=== PATIENT | female | born 1950 | race Caucasian/White ===

== ENCOUNTER 2019-04-22 17:04 | Emergency (ER) | payer OTHER ==
--- OUTSIDE RECORDS SUMMARY | 2019-04-22 17:06 | XMS REPORT ---
:1950 Author Organization eClinicalWorks Care Team Providers Name Role Phone Terence Alston Provider Role Unavailable Allergies No Known Allergies Problems Problem Type Condition Code Onset Dates Condition Status Problem Allergic rhinitis J30.9 Active Problem Depression with anxiety F41.8 Active Problem Obstructive sleep apnea G47.33 Active Problem Urinary incontinence, post-void N39.43 Active dribbling Assessment Obstructive sleep apnea G47.33 Active Problem Varicose veins I86.8 Active Assessment GERD (gastroesophageal reflux K21.9 Active disease) Assessment Fibromyalgia M79.7 Active Problem Bladder spasm N32.89 Active Problem Vertebral compression fracture M48.50XA Active Problem Chronic obstructive pulmon disease J44.0 Active w acute lower resp infct Problem Fibrocystic breast changes N60.19 Active Problem Unspecified asthma with (acute) J45.901 Active exacerbation Assessment Chronic obstructive pulmon disease J44.0 Active w acute lower resp infct Assessment Depression with anxiety F41.8 Active Assessment Mixed hyperlipidemia E78.2 Active Problem Fibromyalgia M79.7 Active Problem Murmur R01.1 Active Problem Shingles B02.9 Active Problem Osteoporosis M81.0 Active Problem Mixed hyperlipidemia E78.2 Active Problem GERD (gastroesophageal reflux K21.9 Active disease) Medications Medication Code Code Instructions Start End Status Dosage System Date Date Symbicort [facility] 73451052335 160-4.5 MCG/ACT May Inactive TAKE 2 11, PUFFS BY 2018 MOUTH TWICE A DAY Breo Ellipta ND 54734000354 100-25 MCG/INH Active 1 puff Inhalation Once a day Montelukast ND 44825328853 10 MG Orally Active 1 tablet in Sodium Once a day the evening Omeprazole ND 21578633749 40 MG Orally Active 1 capsule Once a day Estrace ND 70386943326 0.1 MG/GM Active as directed Vaginal twice weekly Simvastatin ND 52790714432 10 MG Orally May 11, Active 1 tablet in Once a day 2018 the evening Tramadol HCl ND 16090245104 50 MG Orally Active 1 tablet as every 6 hrs needed Gabapentin [facility] 88621201181 100 MG Active TAKE ONE CAPSULE BY MOUTH 3 TIMES A DAY Gabapentin [facility] 56786400987 100 MG Orally Active 1 capsule Three times a day Vistaril [facility] 27089668059 25 MG Active TAKE ONE CAPSULE BY MOUTH 4 TIMES A DAY NEEDED FOR ITCHING Myrbetriq ND 28372020191 25 mg Orally March 14, Sep 10, Active 1 tablet Once a day 2017 2017 Fish Oil [facility] 19121316448 1200 MG Orally Active 1 capsule Once a day Multi Vitamin [facility] 33419018290 - Orally Once a Active 1 tablet day Vistaril [facility] 63187691766 25 MG Active TAKE ONE CAPSULE BY MOUTH 4 TIMES A DAY NEEDED FOR ITCHING ProAir HFA [facility] 29244326648 108 (90 Base) Active 2 puffs as MCG/ACT needed Inhalation every 6 hrs PredniSONE [facility] 35534505448 10 MG Orally Active 1 tablet Once a day Lipitor [facility] 17859292888 20 MG Active TAKE 1 TABLET BY MOUTH EVERY DAY Lipitor [facility] 50593176571 20 MG Orally Inactive 1 tablet Once a day Fluoxetine HCl [facility] 42288314419 20 MG Orally Active 1 capsule Once a day in the morning Melatonin [facility] 64353275762 5 MG Orally Active 1 tablet at Once a day bedtime as needed with food Results No Known Results Summary Purpose eClinicalWorks Submission
--- OUTSIDE RECORDS SUMMARY | 2019-04-22 17:06 | XMS REPORT ---
:1950 Author Organization eClinicalWorks Care Team Providers Name Role Phone Aidee Danette Provider Role Unavailable Allergies, Adverse Reactions, Alerts Substance Reaction Event Type penicillin Info Not Available Drug Allergy codeine Info Not Available Drug Allergy NSAIDS Info Not Available Drug Allergy Sulfa Info Not Available Drug Allergy Prilosec Info Not Available Drug Allergy Lyrica Info Not Available Drug Allergy Problems Problem Type Condition Code Onset Dates Condition Status Problem Allergic rhinitis J30.9 Active Problem Depression with anxiety F41.8 Active Problem Obstructive sleep apnea G47.33 Active Problem Urinary incontinence, post-void N39.43 Active dribbling Problem Varicose veins I86.8 Active Problem Bladder spasm N32.89 Active Problem Vertebral compression fracture M48.50XA Active Problem Chronic obstructive pulmon disease J44.0 Active w acute lower resp infct Problem Fibrocystic breast changes N60.19 Active Problem Unspecified asthma with (acute) J45.901 Active exacerbation Assessment Urinary incontinence, post-void N39.43 Active dribbling Assessment Bladder spasm N32.89 Active Problem Fibromyalgia M79.7 Active Problem Murmur R01.1 Active Problem Shingles B02.9 Active Problem Osteoporosis M81.0 Active Problem Mixed hyperlipidemia E78.2 Active Problem GERD (gastroesophageal reflux K21.9 Active disease) Medications Medication Code Code Instructions Start End Status Dosage System Date Date ProAir HFA [facility] 62543053987 108 (90 Base) Active 2 puffs as MCG/ACT needed Inhalation every 6 hrs Vistaril [facility] 20605004687 25 MG Active TAKE ONE CAPSULE BY MOUTH 4 TIMES A DAY NEEDED FOR ITCHING Melatonin [facility] 75169981947 5 MG Orally Active 1 tablet at Once a day bedtime as needed with food Montelukast [facility] 45590044377 10 MG Orally Active 1 tablet in Sodium Once a day the evening Multi Vitamin [facility] 57438161937 - Orally Once a Active 1 tablet day Fluoxetine HCl [facility] 89240706077 20 MG Orally Active 1 capsule Once a day in the morning Estrace [facility] 55482480832 0.1 MG/GM January Active as directed Vaginal twice 2017 weekly Fish Oil [facility] 57554926258 1200 MG Orally Active 1 capsule Once a day Gabapentin [facility] 48096890407 100 MG Orally Active 1 capsule Three times a day Omeprazole [facility] 99725472937 40 MG Orally Active 1 capsule Once a day PredniSONE [facility] 49709604893 10 MG Orally Active 1 tablet Once a day Tramadol HCl [facility] 43012055643 50 MG Orally Active 1 tablet as every 6 hrs needed Symbicort [facility] 96736422139 160-4.5 MCG/ACT Active TAKE 2 PUFFS BY MOUTH TWICE A DAY Lipitor [facility] 61949232337 20 MG Orally Active 1 tablet Once a day Breo Ellipta [facility] 12900727554 100-25 MCG/INH Active 1 puff Inhalation Once a day Results Name Result Date Reference Range Unit Abnormality Flag URINALYSIS AUTO W/O SCOPE (40164) ----ASHKAN neg [id number] ----NIT neg [id number] ----PROTEIN neg [id number] ----pH 6.5 20180209 ----GLUCOSE neg [id number] ----KETONES neg [id number] ----SPECIFIC GRAVITY 1.010 [id number] ----BLO neg [id number] PVR ----PVR 57 [id number] Summary Purpose eClinicalWorks Submission
--- OUTSIDE RECORDS SUMMARY | 2019-04-22 17:06 | XMS REPORT ---
:1950 Author Organization eClinicalWorks Care Team Providers Name Role Phone Terence Alston Provider Role Unavailable Allergies, Adverse Reactions, Alerts Substance Reaction Event Type Ciprofloxacin Info Not Available Drug Allergy Bactrim DS Info Not Available Drug Allergy Problems Problem Type Condition Code Onset Dates Condition Status Problem Chronic obstructive pulmon disease J44.0 Active w acute lower resp infct Problem Unspecified asthma with (acute) J45.901 Active exacerbation Problem Vertebral compression fracture M48.50XA Active Problem GERD (gastroesophageal reflux K21.9 Active disease) Problem Osteoporosis M81.0 Active Problem Allergic rhinitis J30.9 Active Problem Varicose veins I86.8 Active Problem Fibrocystic breast changes N60.19 Active Problem Murmur R01.1 Active Problem Fibromyalgia M79.7 Active Assessment Obstructive sleep apnea G47.33 Active Assessment Depression with anxiety F41.8 Active Assessment Fibromyalgia M79.7 Active Assessment GERD (gastroesophageal reflux K21.9 Active disease) Problem Shingles B02.9 Active Problem Mixed hyperlipidemia E78.2 Active Assessment Mixed hyperlipidemia E78.2 Active Problem Obstructive sleep apnea G47.33 Active Assessment Chronic obstructive pulmon disease J44.0 Active w acute lower resp infct Problem Depression with anxiety F41.8 Active Medications Medication Code Code Instructions Start End Status Dosage System Date Date ProAir HFA [facility] 29612497591 108 (90 Base) Active 2 puffs as MCG/ACT needed Inhalation every 6 hrs Vistaril [facility] 97510737468 25 MG Active TAKE ONE CAPSULE BY MOUTH 4 TIMES A DAY NEEDED FOR ITCHING Omeprazole [facility] 25347540541 40 MG Orally Active 1 capsule Once a day Tramadol HCl [facility] 04514552915 50 MG Orally Active 1 tablet every 6 hrs as needed Gabapentin [facility] 12739335857 100 MG Orally Active 1 capsule Three times a day Lipitor [facility] 47046052291 20 MG Orally Active 1 tablet Once a day Fluoxetine HCl [facility] 97464758121 20 MG Orally Active 1 capsule Once a day in the morning Symbicort [facility] 91310558896 160-4.5 MCG/ACT Active TAKE 2 PUFFS BY MOUTH TWICE A DAY Montelukast [facility] 49993209383 10 MG Orally Active 1 tablet Sodium Once a day in the evening Results No Known Results Summary Purpose eClinicalWorks Submission
--- OUTSIDE RECORDS SUMMARY | 2019-04-22 17:06 | XMS REPORT ---
[...] asthma with (acute) J45.901 Active exacerbation Assessment Bladder spasm N32.89 Active Assessment Urinary incontinence, post-void N39.43 Active dribbling Problem Fibromyalgia M79.7 Active Problem Murmur R01.1 Active Problem Shingles B02.9 Active Problem Osteoporosis M81.0 Active Problem Mixed hyperlipidemia E78.2 Active Problem GERD (gastroesophageal reflux K21.9 Active disease) Medications Medication Code Code Instructions Start End Status Dosage System Date Date Estrace [facility] 55647353527 0.1 MG/GM Active as directed Vaginal twice weekly Fluoxetine HCl ND 31224542233 20 MG Orally Active 1 capsule Once a day in the morning Vistaril ND 56042482340 25 MG Active TAKE ONE CAPSULE BY MOUTH 4 TIMES A DAY NEEDED FOR ITCHING PredniSONE ND 97358536543 10 MG Orally Active 1 tablet Once a day Lipitor ND 53891533160 20 MG Active TAKE 1 TABLET BY MOUTH EVERY DAY Symbicort [facility] 28830623431 160-4.5 MCG/ACT Active TAKE 2 PUFFS BY MOUTH TWICE A DAY Melatonin [facility] 26867719573 5 MG Orally Active 1 tablet at Once a day bedtime as needed with food Gabapentin [facility] 37815710010 100 MG Active TAKE ONE CAPSULE BY MOUTH 3 TIMES A DAY Breo Ellipta [facility] 51533622667 100-25 MCG/INH Active 1 puff Inhalation Once a day Montelukast ND 20172372622 10 MG Orally Active 1 tablet in Sodium Once a day the evening ProAir HFA [facility] 81159809946 108 (90 Base) Active 2 puffs as MCG/ACT needed Inhalation every 6 hrs Fish Oil [facility] 92769422092 1200 MG Orally Active 1 capsule Once a day Tramadol HCl [facility] 19841946693 50 MG Orally Active 1 tablet as every 6 hrs needed Omeprazole [facility] 54272203576 40 MG Orally Active 1 capsule Once a day Myrbetriq [facility] 66569839354 25 mg Orally March 14, Sep 10, Active 1 tablet Once a day 2017 2017 Multi Vitamin [facility] 80085832178 - Orally Once a Active 1 tablet day Results Name Result Date Reference Range Unit Abnormality Flag URINALYSIS AUTO W/O SCOPE ([id number]) ----ASHKAN neg [id number] ----NIT neg [id number] ----PROTEIN neg [id number] ----pH 6.5 20180314 ----GLUCOSE neg [id number] ----KETONES neg [id number] ----SPECIFIC GRAVITY 1.010 [id number] ----BLO neg [id number] PVR ----PVR 24 [id number] Summary Purpose eClinicalWorks Submission
--- OUTSIDE RECORDS SUMMARY | 2019-04-22 17:07 | XMS REPORT ---
:1950 Author Organization eClinicalWorks Care Team Providers Name Role Phone GamalielTerence Provider Role Unavailable Allergies No Known Allergies [...] asthma with (acute) J45.901 Active exacerbation Problem Fibromyalgia M79.7 Active Problem Murmur R01.1 Active Problem Shingles B02.9 Active Problem Osteoporosis M81.0 Active Problem Mixed hyperlipidemia E78.2 Active Problem GERD (gastroesophageal reflux K21.9 Active disease) Medications Medication Code Code Instructions Start End Status Dosage System Date Date ProAir HFA [facility] 32424450048 108 (90 Base) Active 2 puffs as MCG/ACT needed Inhalation every 6 hrs Montelukast ND 16118723293 10 MG Orally Active 1 tablet in Sodium Once a day the evening Melatonin ND 23360959234 5 MG Orally Active 1 tablet at Once a day bedtime as needed with food Multi Vitamin [facility] 23952093024 - Orally Once a Active 1 tablet day Vistaril ND 56198888897 25 MG Active TAKE ONE CAPSULE BY MOUTH 4 TIMES A DAY NEEDED FOR ITCHING Vistaril ND 39910960643 25 MG Active TAKE ONE CAPSULE BY MOUTH 4 TIMES A DAY NEEDED FOR ITCHING Gabapentin ND 66107713303 100 MG Orally Dec 19, Active 1 capsule Three times a 2018 day Fluoxetine HCl ND 46206145644 20 MG Orally Active 1 capsule Once a day in the morning Omeprazole [facility] 13037950104 40 MG Orally Active 1 capsule Once a day Breo Ellipta [facility] 48797306769 100-25 MCG/INH Active 1 puff Inhalation Once a day Fish Oil [facility] 30439164706 1200 MG Orally Active 1 capsule Once a day Estrace [facility] 92650182177 0.1 MG/GM Active as directed Vaginal twice weekly HydrOXYzine [facility] 61473073062 25 MG Orally Dec 19, Inactive 1 capsule Pamoate every 6-8 hrs 2019 as needed Ezetimibe [facility] 87715403315 10 MG Orally Nov 15, Active 1 tablet Once a day 2018 HydrOXYzine [facility] 23139106284 25 MG Orally Nov 15, Active 1-2 Tablets HCl every 6-8 hrs 2018 PRN Gabapentin [facility] 87900132826 100 MG Orally Active 1 capsule Three times a day Results No Known Results Summary Purpose eClinicalWorks Submission
--- OUTSIDE RECORDS SUMMARY | 2019-04-22 17:07 | XMS REPORT ---
:1950 Author Organization eClinicalWorks Care Team Providers Name Role Phone Magnus Alstonh Provider Role Unavailable Allergies, Adverse Reactions, Alerts Substance Reaction Event Type Prilosec Info Not Available Drug Allergy Lyrica [...] Start End Status Dosage System Date Date Vistaril [facility] 08203776352 25 MG Active TAKE ONE CAPSULE BY MOUTH 4 TIMES A DAY NEEDED FOR ITCHING Tramadol HCl ND 38001739107 50 MG Orally Active 1 tablet as every 6 hrs needed Melatonin ND 80908185087 5 MG Orally Active 1 tablet at Once a day bedtime as needed with food Breo Ellipta [facility] 37469242782 100-25 MCG/INH Active 1 puff Inhalation Once a day Estrace ND 21681078428 0.1 MG/GM Active as directed Vaginal twice weekly Livalo [facility] 31910592549 1 MG Orally Oct 11, Active 1 tablet Once a day 2017 ProAir HFA [facility] 89031751154 108 (90 Base) Active 2 puffs as MCG/ACT needed Inhalation every 6 hrs Fish Oil [facility] 17891654216 1200 MG Orally Active 1 capsule Once a day Multi Vitamin ND 31846538758 - Orally Once a Active 1 tablet day Simvastatin [facility] 98635918743 10 MG Orally Inactive 1 tablet in Once a day the evening Gabapentin [facility] 95772391623 100 MG Orally Active 1 capsule Three times a day Gabapentin [facility] 46129843976 100 MG Active TAKE ONE CAPSULE BY MOUTH 3 TIMES A DAY Myrbetriq [facility] 36311104084 25 mg Orally March 14Sep 10, Active 1 tablet Once a day 2017 2017 ProAir HFA [facility] 40697214342 108 (90 Base) Active 2 puffs as MCG/ACT needed Inhalation every 6 hrs PredniSONE [facility] 65378998186 10 MG Orally Active 1 tablet Once a day Fluoxetine HCl [facility] 01319301755 20 MG Orally Active 1 capsule Once a day in the morning Omeprazole [facility] 77576382930 40 MG Orally Active 1 capsule Once a day Montelukast [facility] 31454724761 10 MG Orally Active 1 tablet in Sodium Once a day the evening Results No Known Results Summary Purpose eClinicalWorks Submission
--- OUTSIDE RECORDS SUMMARY | 2019-04-22 17:07 | XMS REPORT ---
:1950 Author Organization eClinicalWorks Care Team Providers Name Role Phone AlstonTerence Provider Role Unavailable Allergies No Known Allergies [...] Start End Status Dosage System Date Date HydrOXYzine HCl [facility] 18474743174 25 MG Orally Nov 15, Active 1 tablet every 6-8 hrs 2018 as needed for anxiety Results No Known Results Summary Purpose eClinicalWorks Submission
--- OUTSIDE RECORDS SUMMARY | 2019-04-22 17:07 | XMS REPORT ---
[...] GERD (gastroesophageal reflux K21.9 Active disease) Medications No Known Medications Results No Known Results Summary Purpose eClinicalWorks Submission
--- OUTSIDE RECORDS SUMMARY | 2019-04-22 17:07 | XMS REPORT ---
[...] Start End Status Dosage System Date Date Fluoxetine HCl [facility] 16004746206 20 MG Orally Active 1 capsule Once a day in the morning Vistaril [facility] 57804934299 25 MG Active TAKE ONE CAPSULE BY MOUTH 4 TIMES A DAY NEEDED FOR ITCHING Montelukast [facility] 81397618046 10 MG Orally Active 1 tablet in Sodium Once a day the evening Vistaril [facility] 83068383159 25 MG Active TAKE ONE CAPSULE BY MOUTH 4 TIMES A DAY NEEDED FOR ITCHING Livalo [facility] 42713891727 1 MG Orally Inactive 1 tablet Once a day Omeprazole [facility] 09665334779 40 MG Orally Active 1 capsule Once a day Melatonin [facility] 44118438172 5 MG Orally Active 1 tablet at Once a day bedtime as needed with food ProAir HFA [facility] 47724956925 108 (90 Base) Active 2 puffs as MCG/ACT needed Inhalation every 6 hrs Gabapentin [facility] 15110190907 100 MG Orally Active 1 capsule Three times a day Breo Ellipta [facility] 15401218971 100-25 MCG/INH Active 1 puff Inhalation Once a day Multi Vitamin [facility] 71931168538 - Orally Once a Active 1 tablet day Fish Oil [facility] 80813354382 1200 MG Orally Active 1 capsule Once a day Ezetimibe [facility] 57419673032 10 MG Orally Nov 15, Active 1 tablet Once a day 2018 Estrace [facility] 75689301096 0.1 MG/GM Active as directed Vaginal twice weekly Results No Known Results Summary Purpose eClinicalWorks Submission
[2019-04-22] MEDS ORDERED: TRAMADOL HCL 50 MG TAB ONE ×2 (17:50→18:24)
--- NOTE | 2019-04-22 18:18 | RAD REPORT ---
EXAM DESCRIPTION: RAD - Knee Left 3 View - 04/22/2019 6:03 pm CLINICAL HISTORY: Left knee pain following trauma COMPARISON: None. FINDINGS: No fracture, dislocation or periosteal reaction.No joint effusion seen. No joint space marisa rowing. No measurable degenerative change at the left knee joint. There is minimal spurring at the qu adriceps attachment to the patella. There is minimal spurring or the patella tendon attached is to th e tibia. Periarticular soft tissues are unremarkable. IMPRESSION: Negative left knee. Clinical concerns for internal derangement or occult bony injury could be further assessed with MR im aging.
--- NOTE | 2019-04-22 18:18 | RAD REPORT ---
EXAM DESCRIPTION: RAD - Femur Left - 04/22/2019 5:59 pm CLINICAL HISTORY: Fall, hip and leg pain COMPARISON: None. FINDINGS: No fracture at the hip joint. Degenerative changes present along the superior acetabular r im. No AVN or focal femoral head abnormality. Imaged portions of the left hemipelvis show no acute fi ndings. Shaft and distal femur also without acute bone finding. The findings are detailed in separate report. No air or foreign body in the soft tissues. IMPRESSION: Degenerative change at the left hip joint. No acute left femur finding.
--- NOTE | 2019-04-22 18:19 | RAD REPORT ---
EXAM DESCRIPTION: RAD - Tib Fib Left - 04/22/2019 6:02 pm CLINICAL HISTORY: Leg pain following trauma COMPARISON: None. FINDINGS: No fracture is identified. There is no dislocation or periosteal reaction noted. No acute or suspicious bony finding. Knee and ankle joints show no acute finding. Focal spurring is present wi th the patella tendon attached is to the tibia. No foreign body or other soft tissue abnormality. IMPRESSION: Negative left tibia & fibula examination for acute or significant finding.
[2019-04-22] MEDS ORDERED: ACETAMINOPHEN 500 MG TAB ONE (18:25)
--- NOTE | 2019-04-22 18:29 | ER ---
Nurse's Notes [facility] Name: Bessie Shepherd Age: 68 yrs Sex: Female : 1950 Arrival Date: 04/22/2019 Time: 17:07 Bed 8 Private MD: Terence Alston Diagnosis: Pain in left leg;Strain of muscle, fascia and tendon of left hip;Pain in left knee Presentation: 04/22 17:10 Presenting complaint: Patient states: I was trying to push my riding lawnmower in to la1 the garage and it fell on to my left knee/lower leg, pt reports being unable to bare weight after injury. Transition of care: patient was not received from another setting of care. Onset of symptoms was April 22, 2019. Risk Assessment: Do you want to hurt yourself or someone else? Patient reports no desire to harm self or others. Initial Sepsis Screen: Does the patient meet any 2 criteria? No. Patient's initial sepsis screen is negative. Does the patient have a suspected source of infection? No. Patient's initial sepsis screen is negative. Care prior to arrival: None. 17:10 Method Of Arrival: Wheelchair la1 17:10 Acuity: ERIK 3 la1 Triage Assessment: 17:30 Musculoskeletal: Circulation, motion, and sensation intact. Capillary refill < 3 ls4 seconds, Range of motion: intact in all extremities, Swelling absent Pelvis is stable Reports pain in left leg and left álvarez and left knee and left quadriceps and lateral aspect of left calf and lateral aspect of left knee and lateral aspect of left thigh since injury. Pain is 8 out of 10 on a pain scale. Injury Description: no visible injury. 17:30 General: Appears uncomfortable, Behavior is calm, cooperative. Pain: Complains of pain ls4 in left leg Pain currently is 8 out of 10 on a pain scale. Historical: - Allergies: 17:11 PENICILLINS; la1 17:11 Sulfa (Sulfonamide Antibiotics); la1 17:11 Codeine; la1 17:21 NSAIDS; la1 - PMHx: 17:11 Asthma; la1 - Immunization history:: Adult Immunizations up to date. - Social history:: Smoking status: Patient/guardian denies using tobacco. - Ebola Screening: : No symptoms or risks identified at this time. - Family history:: not pertinent. Screenin:50 Abuse screen: Denies threats or abuse. Denies injuries from another. Nutritional ls4 screening: No deficits noted. Tuberculosis screening: No symptoms or risk factors identified. Fall Risk None identified. Vital Signs: 17:11 BP 128 / 71; Pulse 88; Resp 16; Temp 97.5; Pulse Ox 98% on R/A; Weight 83.46 kg; Height la1 5 ft. 1 in. (154.94 cm); 17:30 BP 167 / 92; Pulse 87; Resp 16; Temp 97.9; Pulse Ox 99% on R/A; Pain 5/10; ls4 19:06 BP 139 / 95; Pulse 86; Resp 16; Pulse Ox 99% on R/A; Pain 5/10; ls4 17:11 Body Mass Index 34.77 (83.46 kg, 154.94 cm) la1 ED Course: 17:07 Patient arrived in ED. mr 17:07 Terence Alston DO is Private Physician. mr 17:11 Triage completed. la1 17:12 Arm band placed on right wrist. la1 17:14 Anthony Camara MD is Attending Physician. benitez 17:30 Patient has correct armband on for positive identification. Bed in low position. Call ls4 light in reach. Side rails up X 1. 17:30 No provider procedures requiring assistance completed. Patient did not have IV access ls4 during this emergency room visit. 17:40 Rosa Gaona, RN is Primary Nurse. ls4 17:59 Tib Fib Left XRAY In Process Unspecified. EDMS 17:59 Knee Left 3 View XRAY In Process Unspecified. EDMS 17:59 Femur Left XRAY In Process Unspecified. EDMS 18:20 Terence Alston DO is Referral Physician. benitez 18:25 Moises Patel MD is Referral Physician. benitez Administered Medications: 17:35 Drug: traMADol 50 mg Route: PO; ls4 18:12 Drug: traMADol 50 mg Route: PO; ls4 18:42 Follow up: Response: No adverse reaction; Marked relief of symptoms ls4 18:12 Drug: Tylenol 1000 mg Route: PO; ls4 18:42 Follow up: Response: No adverse reaction; Marked relief of symptoms ls4 18:46 CANCELLED (other): Tylenol 650 mg PO once ls4 Outcome: 18:29 Discharge ordered by MD. marquis 19:17 Patient left the ED. ls4 Signatures: Dispatcher [employer] EDAnthony Davis MD MD cha Rivera, Karl Alexandra RN RN la1 Rosa Gaona RN RN ls4 Corrections: (The following items were deleted from the chart) 18:46 18:12 Tylenol 650 mg PO ls4 ls4
--- NOTE | 2019-04-22 18:29 | EDPHYS ---
Physician Documentation [facility] Name: Bessie Shepherd Age: 68 yrs Sex: Female : 1950 Arrival Date: 04/22/2019 Time: 17:07 Bed 8 Private MD: [facility] ED Physician Anthony Camara HPI: 04/22 17:23 This 68 yrs old Female presents to ER via Wheelchair with complaints of Leg benitez Injury. 17:23 The patient presents with decreased range of motion, pain. The complaints affect the benitez lateral aspect of left thigh, lateral aspect of left knee, lateral aspect of left calf, left quadriceps, left knee and left álvarez. Context: The problem was sustained at home. Onset: The symptoms/episode began/occurred just prior to arrival. Modifying factors: The symptoms are alleviated by remaining still, the symptoms are aggravated by movement, weight bearing, bending knee. Associated signs and symptoms: The patient has no apparent associated signs or symptoms. Severity of symptoms: At their worst the symptoms were mild, moderate, in the emergency department the symptoms are unchanged. The patient has not experienced similar symptoms in the past. Historical: - Allergies: 17:11 PENICILLINS; la1 17:11 Sulfa (Sulfonamide Antibiotics); la1 17:11 Codeine; la1 17:21 NSAIDS; la1 - PMHx: 17:11 Asthma; la1 - Immunization history:: Adult Immunizations up to date. - Social history:: Smoking status: Patient/guardian denies using tobacco. - Ebola Screening: : No symptoms or risks identified at this time. - Family history:: not pertinent. ROS: 17:23 Constitutional: Negative for fever, chills, and weight loss, Eyes: Negative for injury, benitez pain, redness, and discharge, ENT: Negative for injury, pain, and discharge, Neck: Negative for injury, pain, and swelling, Cardiovascular: Negative for chest pain, palpitations, and edema, Respiratory: Negative for shortness of breath, cough, wheezing, and pleuritic chest pain, Abdomen/GI: Negative for abdominal pain, nausea, vomiting, diarrhea, and constipation, Back: Negative for injury and pain, : Negative for injury, bleeding, discharge, and swelling, Skin: Negative for injury, rash, and discoloration, Neuro: Negative for headache, weakness, numbness, tingling, and seizure, Psych: Negative for depression, anxiety, suicide ideation, homicidal ideation, and hallucinations, Allergy/Immunology: Negative for hives, rash, and allergies, Endocrine: Negative for neck swelling, polydipsia, polyuria, polyphagia, and marked weight changes, Hematologic/Lymphatic: Negative for swollen nodes, abnormal bleeding, and unusual bruising. 17:23 MS/extremity: Positive for decreased range of motion, pain, tenderness, of the left leg. Exam: 17:23 Constitutional: This is a well developed, well nourished patient who is awake, alert, benitez and in no acute distress. Head/Face: Normocephalic, atraumatic. Eyes: Pupils equal round and reactive to light, extra-ocular motions intact. Lids and lashes normal. Conjunctiva and sclera are non-icteric and not injected. Cornea within normal limits. Periorbital areas with no swelling, redness, or edema. ENT: Nares patent. No nasal discharge, no septal abnormalities noted. Tympanic membranes are normal and external auditory canals are clear. Oropharynx with no redness, swelling, or masses, exudates, or evidence of obstruction, uvula midline. Mucous membranes moist. Neck: Trachea midline, no thyromegaly or masses palpated, and no cervical lymphadenopathy. Supple, full range of motion without nuchal rigidity, or vertebral point tenderness. No Meningismus. Chest/axilla: Normal chest wall appearance and motion. Nontender with no deformity. No lesions are appreciated. Cardiovascular: Regular rate and rhythm with a normal S1 and S2. No gallops, murmurs, or rubs. Normal PMI, no JVD. No pulse deficits. Respiratory: Lungs have equal breath sounds bilaterally, clear to auscultation and percussion. No rales, rhonchi or wheezes noted. No increased work of breathing, no retractions or nasal flaring. Abdomen/GI: Soft, non-tender, with normal bowel sounds. No distension or tympany. No guarding or rebound. No evidence of tenderness throughout. Back: No spinal tenderness. No costovertebral tenderness. Full range of motion. Skin: Warm, dry with normal turgor. Normal color with no rashes, no lesions, and no evidence of cellulitis. Neuro: Awake and alert, GCS 15, oriented to person, place, time, and situation. Cranial nerves II-XII grossly intact. Motor strength 5/5 in all extremities. Sensory grossly intact. Cerebellar exam normal. Normal gait. Psych: Awake, alert, with orientation to person, place and time. Behavior, mood, and affect are within normal limits. 17:23 Musculoskeletal/extremity: Extremities: grossly normal except: decreased ROM, pain, ROM: limited active range of motion, limited passive range of motion, limited active range of motion due to pain, limited passive range of motion due to pain, Circulation is intact in all extremities. Sensation intact. Compartment Syndrome exam of affected extremity: is normal. Weight bearing: is unable to bear weight, DVT Exam: negative Homans' sign noted on exam, no appreciated bluish discoloration, no erythema, no increased warmth, pain, swelling, tenderness, Calves: are non-tender, have equal circumference. Vital Signs: 17:11 BP 128 / 71; Pulse 88; Resp 16; Temp 97.5; Pulse Ox 98% on R/A; Weight 83.46 kg; Height la1 5 ft. 1 in. (154.94 cm); 17:30 BP 167 / 92; Pulse 87; Resp 16; Temp 97.9; Pulse Ox 99% on R/A; Pain 5/10; ls4 19:06 BP 139 / 95; Pulse 86; Resp 16; Pulse Ox 99% on R/A; Pain 5/10; ls4 17:11 Body Mass Index 34.77 (83.46 kg, 154.94 cm) la1 MDM: 17:14 Patient medically screened. [facility] 17:27 Data reviewed: vital signs, nurses notes, radiologic studies, plain films. [facility] 04/22 17:15 Order name: Tib Fib Left XRAY; Complete Time: 18:29 [facility] 04/22 17:18 Order name: Knee Left 3 View XRAY; Complete Time: 18:20 [facility] 04/22 17:23 Order name: Femur Left XRAY; Complete Time: 18:20 [facility] 04/22 17:15 Order name: Ice pack; Complete Time: 17:40 [facility] 04/22 18:30 Order name: Knee Immobilizer; Complete Time: 19:06 [facility] Administered Medications: 17:35 Drug: traMADol 50 mg Route: PO; ls4 18:12 Drug: traMADol 50 mg Route: PO; ls4 18:42 Follow up: Response: No adverse reaction; Marked relief of symptoms ls4 18:12 Drug: Tylenol 1000 mg Route: PO; ls4 18:42 Follow up: Response: No adverse reaction; Marked relief of symptoms ls4 18:46 CANCELLED (other): Tylenol 650 mg PO once ls4 Disposition: 04/22/19 18:29 Discharged to Home. Impression: Pain in left leg, Strain of muscle, fascia and tendon of left hip, Pain in left knee. - Condition is Stable. - Discharge Instructions: Joint Pain, Fall Prevention in the Home, Musculoskeletal Pain, Knee Pain, Fall Prevention in the Home, [id number], Knee Pain, [id number], Joint Pain, Yvxu-[id number]. - Prescriptions for Tramadol 50 mg Oral Tablet - take 2 tablet by ORAL route every 8 hours as needed; 26 tablet. - Medication Reconciliation Form, Thank You Letter, Antibiotic Education, Prescription Opioid Use form. - Follow up: Terence Alston DO; When: 2 - 3 days; Reason: Recheck today's complaints, Continuance of care, Re-evaluation by your physician. Follow up: Moises Patel MD; When: 2 - 3 days; Reason: Recheck today's complaints, Re-evaluation by your physician. - Problem is new. - Symptoms have improved. Signatures: Dispatcher [employer] EDMS Anthony Camara MD MD cha Attema, Lee RN RN la1 Rosa Gaona RN RN ls4 Corrections: (The following items were deleted from the chart) 18:46 18:07 Tylenol 650 mg PO once ordered. benitez ls4 18:46 18:46 Tylenol 650 mg PO once given. ls4 ls4 18:46 18:46 Tylenol 650 mg PO once ordered. ls4 ls4 19:17 18:29 04/22/2019 18:29 Discharged to Home. Impression: Pain in left leg; Strain of ls4 muscle, fascia and tendon of left hip; Pain in left knee. Condition is Stable. Forms are Medication Reconciliation Form, Thank You Letter, Antibiotic Education, Prescription Opioid Use. Follow up: Terence Alston; When: 2 - 3 days; Reason: Recheck today's complaints, Continuance of care, Re-evaluation by your physician. Follow up: Moises Patel; When: 2 - 3 days; Reason: Recheck today's complaints, Re-evaluation by your physician. Problem is new. Symptoms have improved. benitez
[2019-04-22 19:45] VITALS: TEMP 97.9; O2SAT 99
[2019-04-22 19:46] VITALS: BP 139/95
== END 2019-04-22 19:17 | disposition home or self-care (01) ==
LOC: ER 17:04
DX: S76.012A Strain of muscle, fascia and tendon of left hip, initial encounter (principal); M25.562 Pain in left knee; Z88.0 Allergy status to penicillin; Z88.2 Allergy status to sulfonamides; Z88.5 Allergy status to narcotic agent; Z88.6 Allergy status to analgesic agent
CPT/HCPCS: 99283

== ENCOUNTER 2021-02-21 14:42 | Emergency (ER) | payer OTHER ==
--- OUTSIDE RECORDS SUMMARY | 2021-02-21 14:46 | XMS REPORT | Continuity of Care Document ---
:1950 Author Organization [facility] t Address [address] [place] [address] Care Team Providers Name Role Phone Unavailable Unavailable Unavailable Problems This patient has no known problems. Allergies, Adverse Reactions, Alerts Allergy Allergy Status Severity Reaction(s) Onset Inactive Treating Comm ents Source Name Type Date Date Clinician Lyrica Adverse Active dizzy [facility] Prilosec Adverse Active diarrhea [facility] latex Adverse Active Info Not [facility] Reaction Available [facility] Medications Ordered Filled Start Stop Current Ordering Indication Dosage Frequency Signature Comments Components Source Medication Medication Date Date Medication? Clinician (SIG) Name Name MethylPREDN MethylPREDN Yes Fan as [facility] ISolone ISolone 4-08 Garcia directed [facility] 00 [facility] Alprazolam Alprazolam 2018-11 Yes Fan [address] [facility] 2-18 Garcia [facility] 00 [facility] ProAir HFA ProAir HFA Yes Fan [address] [facility] Garcia needed [facility] Fish Oil Fish Oil Yes Fan [address] [facility] Garcia [facility] Fluoxetine Fluoxetine Yes Fan [address] [facility] HCl HCl Garcia in the [facility] - morning [facility] Hydrocodone Hydrocodone Yes Fan (Schedule [facility] -Acetaminop -Acetaminop Garcia II Drug) [facility] hen TAKE 1 [facility] TABLET BY l MOUTH Outpati EVERY 4-6 ent HOURS Clinics NEEDED FOR PAIN. Gabapentin Gabapentin Yes Fan [address] [facility] Garcia [facility] Yes Fan [address] [facility] Sodium Sodium Garcia in the [facility] - evening [facility] ent [facility]ics Ezetimibe Ezetimibe Yes Fan [address] [facility] Garcia [facility] Vistaril Vistaril Yes Fan [address] [facility] Garcia as needed [facility] Melatonin Melatonin Yes Fan [address] [facility] Garcia at bedtime [facility] - as needed [facility] with food l Outpati ent Clinics Multi Multi Yes Fan [address] [facility] Vitamin Vitamin Garcia [facility] Outpat[facility] ent Clinics Omeprazole Omeprazole Yes Fan [address] [facility] Garcia k[facility] - [facility] PredniSONE PredniSONE Yes Fan [address] [facility] Garcia as needed [facility] Outpat[facility] Clinics Diltiazem Diltiazem Yes Fan [address] [facility] [address] HCl HCl Garcia [facility] Out[facility] ent Clinics Protonix Protonix Yes Fan [address] [facility] Garcia [facility] - [facility] Symbicort Symbicort Yes Fan [address] [facility] Garcia [facility] Procedures This patient has no known procedures. Encounters Start End Encounter Admission Attending Care Care Encounter Source Date/Time Date/Time Type Type Clinicians Facility Department ID 2021-01-29 2021-01-29 Outpatient [facility] [id number] [facility] 2021-01-21 2021-01-21 Outpatient [facility] [id number] [facility] 2021-01-09 2021-01-09 Outpatient [facility] [id number] [facility] 2021-01-02 2021-01-02 Outpatient [facility] [id number] [facility] 2020-12-12 2020-12-12 Out[facility] [id number] [facility] 2020-11-21 2020-11-21 [facility] [id number] [facility] 2020-11-15 2020-11-15 [facility] [id number] [facility] 2020-11-04 2020-11-04 [facility] [id number] [facility] 2020-08-27 2020-08-27 [facility] [id number] [facility] 2020-08-20 2020-08-[address] [facility] [id number] [facility] 2020-06-04 2020-06-04 [facility] [id number] [facility] 13:00:00 13:00:00 t [facility] 2020-06-04 2020-06-04 [facility] [id number] 08:09:00 08:09:00 t [employer] [facility] - [facility] Medicine l Medicine Outpati ent Clinics 2020-05-22 2020-05-22 [facility] [id number] 10:30:00 10:30:00 t [facility] s - [facility] Medicine l Medicine Outpati ent Clinics 2020-05-16 2020-05-16 [facility] [id number] 10:45:00 10:45:00 t Tendr s - [facility] Medicine l Medicine Outpati ent Clinics 2020-05-16 2020-05-16 [facility] [id number] 10[facility]30:00 10:30:00 t [place] [facility] Medicine Outpati ent Clinics 2020-05-13 2020-05-13 [facility] [id number] 10:50:00 10:50:00 t [place] [facility] Medicine Outpati ent Clinics 2020-04-18 2020-04-18 [facility] [id number] [facility] 15:26:00 15:26:00 t [place] [facility] Medicine Outpati ent Clinics 2020-02-07 2020-02-07 [facility] [id number] [address] 10[facility]30:00 10:30:00 t [facility] 2019-11-03 2019-11-03 [facility] [id number] 08:52:00 08:52:00 t [place] [facility] Medicine Outpati ent Clinics 2019-10-18 2019-10-18 [facility] [id number] 15:00:00 15:00:00 t [place] [facility] Medicine Outpati ent Clinics 2019-10-02 2019-10-02 [facility] [id number] 09:11:00 09:11:00 t [place] [facility] Medicine Outpati ent Clinics 2019-07-21 2019-07-21 [facility] [id number] [address] 08:46:00 08:46:00 t [place] [facility] Medicine Outpati ent Clinics 2019-07-13 2019-07-13 [facility] [id number] [facility] 13:15:00 13:15:00 t [place] [facility] Medicine Outpati ent Clinics 2019-05-10 2019-05-10 [facility] [id number] 14:30:00 14:30:00 t [facility] Clinics 2019-05-02 2019-05-02 [facility] [id number] 16:16:00 16:16:00 t Bone [facility] and [facility] 2019-04-25 2019-04-25 [facility] [id number] 14:30:00 14:30:00 t Bone Bone and [facility] Clinics 2018-12-19 2018-12-19 [facility] [id number] 16:49:00 16:49:[address] [place] [address] Luke [place] - Drive [facility] Medicine Outpati ent Clinics 2018-11-16 2018-11-16 [facility] [id number] 14:13:00 14:13:00 [place] [employer] Luke s - Drive [facility] 2018-11-15 2018-11-15 [facility] [id number] 11:53:00 11:53:00 [place] [employer] Luke s - Drive [facility] Medicine Medicine Outpati ent Clinics 2018-11-15 2018-11-15 [facility] [id number] 09:00:00 09:00:[address] Luke s - Drive [facility] Medicine Outpati ent Clinics 2018-08-11 2018-08-11 [facility] [id number] 13:15:00 13:15:[address] Luke s - Drive [facility] Medicine Outpati ent Clinics 2018-05-11 2018-05-11 [facility] [id number] [facility] 13:00:00 13:00:[address] [place] Luke s - Drive [facility] Medicine Outpati ent Clinics 2018-03-14 2018-03-14 [facility] [id number] 14:00:00 14:00:00 t Specialty/U Janice kes - Specialty rology [facility] a /Urology Clinic l [facility] 2018-02-09 2018-02-09 [facility] [id number] [facility] 10:00:00 10:00:00 t Specialty/U Janice quinteros - Specialty rology [facility] a /Urology Clinic l Clinic Outpati ent Clinics 2018-02-03 2018-02-03 Outpatient Susanna Bojorquez [id number] [facility] 10:30:[facility] 10:30:00 t [employer] [facility] Medicine [facility] Results This patient has no known results.
[2021-02-21 15:56] LABS: Absolute Lymphocytes (CBC) 2.5 K/uL (0.7-4.9); Basophils % 1.4 % (0-1.3); Hematocrit 42.2 % (36.0-45.0); Lymphocytes % 35.9 % (15.3-44.8); MPV 9.2 fL (7.6-11.3); RBC Red Blood Cell Count 4.69 M/uL (3.86-4.86)
[2021-02-21 16:01] LABS: Protime INR 0.97
[2021-02-21 16:16] LABS: Albumin 3.8 g/dL (3.4-5.0); Bilirubin Direct 0.1 mg/dL (0-0.2); Bilirubin Total 0.4 mg/dL (0.2-1.0); Magnesium 2.4 mg/dL (1.8-2.4); Potassium 4.2 mmol/L (3.5-5.1); Protein, Total 7.5 g/dL (6.4-8.2)
[2021-02-21] MEDS ORDERED: DIAZEPAM 10 MG/2 ML INJ SYRINGE ONE (18:44)
[2021-02-21] MEDS ORDERED: NA CHLORIDE 0.9% 1,000 ML ONE (18:45)
[2021-02-21] MEDS ORDERED: MECLIZINE HCL 12.5 MG TAB ONE (18:45)
--- NOTE | 2021-02-21 19:36 | RAD REPORT ---
EXAM DESCRIPTION: MRI - Brain Wo Cont - 02/21/2021 6:59 pm CLINICAL HISTORY: DIZZINESS Headache, drowsiness, blurry vision COMPARISON: No comparisonsNo comparisons TECHNIQUE: Multi-sequence, multiplanar MR imaging of the brain was performed without contrast. FINDINGS: No intracranial hemorrhage, hydrocephalus or extra-axial fluid collections.Mild chronic mi crovascular ischemic changes in the periventricular white matter. No edema or shift of midline struct ures. No findings to suspect brain mass. DWI is negative for acute CVA. Midline structures are normally formed. Mastoid air cells and paranasal sinuses are clear. IMPRESSION: No acute or aggressive intracranial abnormalities.
--- NOTE | 2021-02-21 19:48 | ER ---
Nurse's Notes [facility] Name: Bessie Shepherd Age: 70 yrs Sex: Female : 1950 Arrival Date: 02/21/2021 Time: 14:44 Bed 26 Private MD: Diagnosis: Other peripheral vertigo Presentation: 02/21 14:50 Chief complaint: Worsening dizziness x 5 days, unchanged by Meclizine. Pt reports she hb had her second COVID vaccine last Wednesday, had flu symptoms for 2 days, then Wednesday the dizziness started. Coronavirus screen: At this time, the client does not indicate any symptoms associated with coronavirus-19. Ebola Screen: No symptoms or risks identified at this time. Initial Sepsis Screen: Does the patient meet any 2 criteria? No. Patient's initial sepsis screen is negative. Does the patient have a suspected source of infection? No. Patient's initial sepsis screen is negative. Risk Assessment: Do you want to hurt yourself or someone else? Patient reports no desire to harm self or others. Onset of symptoms was February 17, 2021. 14:50 Method Of Arrival: Ambulatory hb 14:50 Acuity: ERIK 3 hb Historical: - Allergies: 14:53 Codeine; hb 14:53 NSAIDS; hb 14:53 PENICILLINS; hb 14:53 Sulfa (Sulfonamide Antibiotics); hb - PMHx: 14:53 Asthma; hb - Immunization history:: Adult Immunizations up to date. - Social history:: Smoking status: Patient denies any tobacco usage or history of. Screenin:18 Abuse screen: Denies threats or abuse. Nutritional screening: No deficits noted. kg Tuberculosis screening: No symptoms or risk factors identified. 17:39 Fall Risk None identified. IV access (20 points). kg Assessment: 15:34 General: Appears in no apparent distress. Behavior is calm, cooperative, appropriate kg for age. Pain: Denies pain. Neuro: Reports blurred vision dizziness, since Saturday 02/17. 15:34 Cardiovascular: No deficits noted. Respiratory: No deficits noted. GI: No deficits kg noted. : No deficits noted. EENT: No deficits noted. Derm: No deficits noted. Musculoskeletal: No deficits noted. Vital Signs: 14:50 BP 164 / 97; Pulse 90; Resp 16; Temp 97.3; Pulse Ox 100% on R/A; Pain 0/10; hb 17:37 BP 154 / 82; Pulse 75; Resp 18; Pulse Ox 98% on R/A; Pain 0/10; kg 20:15 BP 154 / 95; Pulse 74; Resp 16; Pulse Ox 99% ; jm8 [place] Coma Score: 16:17 Eye Response: spontaneous(4). Verbal Response: oriented(5). Motor Response: obeys jr8 commands(6). Total: 15. NIH Stroke Scale Scores: 16:17 NIHSS Score: 0 jr8 ED Course: 14:44 Patient arrived in ED. ds1 14:52 Triage completed. hb 14:53 Arm band placed on. hb 15:04 Jhony Wallace PA is PHCP. jr8 15:04 Anthony Camara MD is Attending Physician. jr8 15:10 Chantal Ritchie is Primary Nurse. kg 15:18 Patient has correct armband on for positive identification. Allergy band placed. Fall kg risk band placed. Bed in low position. Call light in reach. Side rails up X 1. 16:00 Inserted saline lock: 20 gauge in right antecubital area, using aseptic technique. kg 18:55 MRI - Brain Wo Cont In Process Unspecified. EDMS 19:47 Anthoyn Amaro MD is Referral Physician. jr8 20:15 IV discontinued, intact. jm8 Administered Medications: 16:40 Drug: Meclizine 25 mg Route: PO; kg 20:16 Follow up: Response: No adverse reaction jm8 18:25 Drug: NS 0.9% 1000 ml Route: IV; Rate: 1000 ml; Site: right antecubital; kg 20:16 Follow up: Response: No adverse reaction; IV Status: Completed infusion jm8 18:25 Drug: Valium (diazepam) 2 mg Route: IVP; Site: right antecubital; kg 20:16 Follow up: Response: No adverse reaction jm8 Outcome: 19:47 Discharge ordered by . jr8 20:17 Patient left the ED. jm8 NIH Stroke Scale - NIH Stroke Score Date: 02/21/2021 Time: 16:17 Total Score = 0 1a. Level of Consciousness (LOC) - 0(Alert) 1b. Level of Consciousness (LOC) (Year \T\ Age) - 0(Both) 1c. LOC Commands (Open \T\ Closes Eyes/[employer]) - 0(Both) 2. Best Gaze (Lateral Gaze Paresis) - 0(Normal) 3. Visual Field Loss - 0(No visual loss) 4. Facial Palsy - 0(Normal) 5a. Left Arm: Motor (10-second hold) - 0(No drift) 5b. Right Arm: Motor (10-second hold) - 0(No drift) 6a. Left Leg: Motor (5-second hold - always test supine) - 0(No drift) 6b. Right Leg: Motor (5-second hold - always test supine) - 0(No drift) 7. Limb Ataxia (finger/nose \T\ heel/álvarez - test with eyes open) - 0(Absent) 8. Sensory Loss (pinprick arms/legs/face) - 0(Normal) 9. Best Language: Aphasia (description/naming/reading) - 0(No aphasia) 10. Dysarthria (speech clarity - read or repeat words) - 0(Normal) 11. Extinction and Inattention (visual/tactile/auditory/spatial/personal) - 0(No abnormality) Initials: jr8 Signatures: Dispatcher [employer] EDTN [place] ds1 Jhony Wallace PA PA jr8 Virginia Bryant RN RN Jaron Aranda RN RN jm8 Chantal Ritchie kg Corrections: (The following items were deleted from the chart) 18:56 18:55 In radiology for Brain Wo Cont+MRI.RAD.BOBBY. EDTN EDMS
--- NOTE | 2021-02-21 19:48 | EDPHYS ---
Physician Documentation [facility] Name: Bessie Shepherd Age: 70 yrs Sex: Female : 1950 Arrival Date: 02/21/2021 Time: 14:44 Bed 26 Private MD: CARLEE Physician Anthony Camara HPI: 02/21 16:14 This 70 yrs old Female presents to ER via Ambulatory with complaints of jr8 Dizziness. 16:14 Patient reports having dizziness since Wednesday. She received the 2nd COVID vaccine on jr8 Wednesday. She became ill with vomiting, CHILD, and generalized pain. Since that episode she has been unable to maintain balance as she suddenly becomes dizzy with the room spinning. . Historical: - Allergies: 14:53 Codeine; hb 14:53 NSAIDS; hb 14:53 PENICILLINS; hb 14:53 Sulfa (Sulfonamide Antibiotics); hb - PMHx: 14:53 Asthma; hb - Immunization history:: Adult Immunizations up to date. - Social history:: Smoking status: Patient denies any tobacco usage or history of. ROS: 16:16 ENT: Negative for injury, pain, and discharge, Neck: Negative for injury, pain, and jr8 swelling, Cardiovascular: Negative for chest pain, palpitations, and edema, Respiratory: Negative for shortness of breath, cough, wheezing, and pleuritic chest pain, Abdomen/GI: Negative for abdominal pain, nausea, vomiting, diarrhea, and constipation, Back: Negative for injury and pain, MS/Extremity: Negative for injury and deformity. 16:16 Eyes: Positive for blurry vision. 16:16 Neuro: Positive for dizziness, gait disturbance, tinnitus. 16:16 All other systems are negative. Exam: 16:17 Head/Face: Normocephalic, atraumatic. Eyes: Pupils equal round and reactive to light, jr8 extra-ocular motions intact. Lids and lashes normal. Conjunctiva and sclera are non-icteric and not injected. Cornea within normal limits. Periorbital areas with no swelling, redness, or edema. Chest/axilla: Normal chest wall appearance and motion. Nontender with no deformity. No lesions are appreciated. Cardiovascular: Regular rate and rhythm with a normal S1 and S2. No gallops, murmurs, or rubs. Normal PMI, no JVD. No pulse deficits. Respiratory: Lungs have equal breath sounds bilaterally, clear to auscultation and percussion. No rales, rhonchi or wheezes noted. No increased work of breathing, no retractions or nasal flaring. Abdomen/GI: Soft, non-tender, with normal bowel sounds. No distension or tympany. No guarding or rebound. No evidence of tenderness throughout. MS/ Extremity: Pulses equal, no cyanosis. Neurovascular intact. Full, normal range of motion. 16:17 Neuro: Orientation: is normal, Mentation: is normal, Memory: is normal, immediate memory is intact, recent memory is intact, remote memory is intact, Cranial nerves: grossly normal, CN I not tested, CN II- XII are normal as tested, Facial palsy and sensory deficits are absent. Rotary nystagmus in outer aspect of conjuctiva of right eye, inner aspect of conjuctiva of right eye, outer aspect of conjuctiva of left eye and inner aspect of conjunctiva of left eye. Speech is clear and appropriate. Gag reflex present. Tongue Cerebellar function: Slightly slow in completion, Motor: is normal, moves all fours, strength is normal, Sensation: is normal, Gait: Vital Signs: 14:50 BP 164 / 97; Pulse 90; Resp 16; Temp 97.3; Pulse Ox 100% on R/A; Pain 0/10; hb 17:37 BP 154 / 82; Pulse 75; Resp 18; Pulse Ox 98% on R/A; Pain 0/10; kg 20:15 BP 154 / 95; Pulse 74; Resp 16; Pulse Ox 99% ; jm8 NIH Stroke Scale Scores: 16:17 NIHSS Score: 0 jr8 [place] Coma Score: 16:17 Eye Response: spontaneous(4). Verbal Response: oriented(5). Motor Response: obeys jr8 commands(6). Total: 15. MDM: 15:04 Patient medically screened. jr8 19:46 Data reviewed: vital signs, nurses notes, lab test result(s), radiologic studies, MRI. jr8 Data interpreted: Pulse oximetry: on room air is 98 %. Interpretation: normal. Counseling: I had a detailed discussion with the patient and/or guardian regarding: the historical points, exam findings, and any diagnostic results supporting the discharge/admit diagnosis, lab results, radiology results, the need for outpatient follow up, a neurologist, to return to the emergency department if symptoms worsen or persist or if there are any questions or concerns that arise at home. Response to treatment: the patient's symptoms have markedly improved after treatment, patient is well hydrated. 02/21 15:31 Order name: Basic Metabolic Panel; Complete Time: 16:23 02/21 15:31 Order name: CBC with Diff; Complete Time: 16:08 02/21 15:31 Order name: LFT's; Complete Time: 16:02/21 15:31 Order name: Magnesium; Complete Time: 16:02/21 15:31 Order name: PT-INR; Complete Time: 16:08 02/21 15:31 Order name: MRI - Brain Wo Cont; Complete Time: 19:42 02/21 15:31 Order name: EKG; Complete Time: 15:31 02/21 15:31 Order name: Cardiac monitoring; Complete Time: 18:02/21 15:31 Order name: EKG - Nurse/Tech; Complete Time: 19:26 02/21 15:31 Order name: IV Saline Lock; Complete Time: 18:02/21 15:31 Order name: Labs collected and sent; Complete Time: 18:02/21 15:31 Order name: O2 Per Protocol; Complete Time: 18:02/21 15:31 Order name: O2 Sat Monitoring; Complete Time: 18:21 Administered Medications: 16:40 Drug: Meclizine 25 mg Route: PO; kg 20:16 Follow up: Response: No adverse reaction [facility] 18:25 Drug: NS 0.9% 1000 ml Route: IV; Rate: 1000 ml; Site: right antecubital; kg 20:16 Follow up: Response: No adverse reaction; IV Status: Completed infusion [facility] 18:25 Drug: Valium (diazepam) 2 mg Route: IVP; Site: right antecubital; kg 20:16 Follow up: Response: No adverse reaction [facility] Disposition: 02/21/21 19:47 Discharged to Home. Impression: Other peripheral vertigo. - Condition is Stable. - Prescriptions for Valium 2 mg Oral Tablet - take 1 tablet by ORAL route every 8 hours As needed; 20 tablet. - Medication Reconciliation Form, Thank You Letter, Antibiotic Education, Prescription Opioid Use, SBAR form form. - Follow up: Anthony Amaro MD; When: 7 - 10 days; Reason: Recheck today's complaints, Continuance of care, Re-evaluation by your physician. - Problem is new. - Symptoms have improved. NIH Stroke Scale - NIH Stroke Score Date: 02/21/2021 Time: 16:17 Total Score = 0 1a. Level of Consciousness (LOC) - 0(Alert) 1b. Level of Consciousness (LOC) (Year \T\ Age) - 0(Both) 1c. LOC Commands (Open \T\ Closes Eyes/Rn Cardiac) - 0(Both) 2. Best Gaze (Lateral Gaze Paresis) - 0(Normal) 3. Visual Field Loss - 0(No visual loss) 4. Facial Palsy - 0(Normal) 5a. Left Arm: Motor (10-second hold) - 0(No drift) 5b. Right Arm: Motor (10-second hold) - 0(No drift) 6a. Left Leg: Motor (5-second hold - always test supine) - 0(No drift) 6b. Right Leg: Motor (5-second hold - always test supine) - 0(No drift) 7. Limb Ataxia (finger/nose \T\ heel/álvarez - test with eyes open) - 0(Absent) 8. Sensory Loss (pinprick arms/legs/face) - 0(Normal) 9. Best Language: Aphasia (description/naming/reading) - 0(No aphasia) 10. Dysarthria (speech clarity - read or repeat words) - 0(Normal) 11. Extinction and Inattention (visual/tactile/auditory/spatial/personal) - 0(No abnormality) Initials: ronel Addendum: 02/23/2021 08:09 Co-signature as Attending Physician, Anthony Camara MD I agree with the [facility] assessment and plan of care. Signatures: Dispatcher [employer] Anthony Vazquez MD MD cha Roszak, Josh, PA PA jr8 Vigrinia Bryant, RN RN Jaron Aranda RN RN jm8 Chantal Ritchie kg Corrections: (The following items were deleted from the chart) 02/21 18:21 15:32 Brain Wo Cont+MRI.RAD.BRZ ordered. CARLEEAK EDMS 18:56 18:44 Brain Wo Cont+MRI.RAD.BRZ ordered. EDAK EDMS 20:17 19:47 02/21/2021 19:47 Discharged to Home. Impression: Other peripheral jm8 vertigo. Condition is Stable. Forms are SBAR form, Medication Reconciliation Form, Thank You Letter, Antibiotic Education, Prescription Opioid Use. Follow up: Anthony Amaro; When: 7 - 10 days; Reason: Recheck today's complaints, Continuance of care, Re-evaluation by your physician. Problem is new. Symptoms have improved. jr8
[2021-02-21 20:25] VITALS: TEMP 97.3
[2021-02-21 20:28] VITALS: BP 154/95; O2SAT 99
--- NOTE | 2021-02-24 10:52 | EKG ---
Test Date: 2021-02-21 Test Time: 19:22:04 Director Insurance: MEASUREMENT RESULTS: Intervals: Rate: 66 GA: 164 QRSD: 90 QT: 404 QTc: 423 Aubrey: P: 36 GA: 164 QRS: 27 T: 15 INTERPRETIVE STATEMENTS: Sinus rhythm with marked sinus arrhythmia Minimal voltage criteria for LVH, may be normal variant Cannot rule out Anterior infarct, age undetermined Abnormal ECG Compared to ECG 10/06/2016 16:19:47 No significant changes Electronically Signed On 02-24-21 10:47:12 CDT by Josh Glover
== END 2021-02-21 20:17 | disposition home or self-care (01) ==
LOC: ER 14:42
DX: H81.399 Other peripheral vertigo, unspecified ear (principal); J45.909 Unspecified asthma, uncomplicated
CPT/HCPCS: 96361; 85025; 80048; 36415; 83735; 85610; 80076; 70551; 96374; 99283; J3360; J7030; 93005

== ENCOUNTER 2022-12-05 10:11 | Emergency (ER) | payer OTHER ==
--- OUTSIDE RECORDS SUMMARY | 2022-12-05 10:19 | XMS REPORT | Continuity of Care Document ---
:1950 Author Organization [facility] t Address [address] [place] [address] Dr. [address]. [address] [place] [address] Care Team Providers Name Role Phone Terence Alston Attending Clinician Unavailable Perez Murray Attending Clinician Payers Payer Name Policy Type Policy Number Effective Date Expiration Date S rodríguez MEDICARE MB [id number] 2003 [facility] NOVITAS 00:00:00 - [facility] MEDICARE MB [id number] 2003 [facility] NOVITAS 00:00:00 - [facility] MEDICARE MB [id number] 2003 [facility] NOVITAS 00:00:00 - [facility] MEDICARE [id number] 2003 [facility] NOVITAS 00:00:00 [facility] MEDICARE MB [id number] 2003 [facility] NOVITAS 00:00:00 [facility] MEDICARE MB [id number] 2003 [facility] NOVITAS 00:00:00 [facility] MEDICARE [id number] 2003 [facility] NOVITAS 00:00:00 [facility] Problems Condition Condition Condition Status Onset Resolution Last Treating Co mments Source Name Details Category Date Date Treatment Clinician Date 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-06 Memoria of s of d 23:36:49 l cerebral cerebral Moustapha n veins veins (disorder) (disorder) Resolved Problem 11/06/2021 [facility] Asthma Asthma Problem Active 2021-11-06 Scott audrey (disorder) (disorder) 23:36:49 l Active Jay Em Problem 11/06/2021 [facility] Ataxia Ataxia Problem Active 2021-11-06 Scott adurey (finding) (finding) 23:36:49 l Active Jay Em Problem 11/06/2021 [facility] Confusiona Problem Active 2021-11-06 M emoria l state Confusiona 23:36:49 l (disorder) l state Shelby nn (disorder) Active Problem 11/06/2021 [facility] Headache Headache Problem Active 2021-11-06 Memoria (finding) (finding) 23:36:49 l Active Jay Em Problem 11/06/2021 [facility] Heart Heart Problem Active 2021-11-06 Memor ia murmur murmur 23:36:49 l (finding) (finding) Herm angy Active Problem 11/06/2021 [facility] Hypertensi Hypertens Problem Active 2021-11-06 Memoria ve matthew 23:36:49 l disorder, disorder, Herm angy systemic systemic arterial arterial (disorder) (disorder) Active Problem 11/06/2021 [facility] Vaccinatio Vaccinati Problem Active 2021-11-06 Memoria n given on given 23:36:49 l (situation (situation He rmann ) ) Active Problem 11/06/2021 [facility] Visual Visual Problem Active 2021-11-06 Scott audrey disturbanc disturbanc 23:36:49 l e e Jake (disorder) (disorder) Active Problem 11/06/2021 [facility] Shingles Shingles Problem Commo n [facility] 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 [facility] fracture n fracture - [facility] Mixed Mixed Problem Common hyperlipid hyperlipid Sp miguel a emia emia - [facility] Varicose Varicose Problem Commo n veins veins [facility] - [facility] Chronic Chronic Problem Common obstructiv obstructiv Sp miguel a e e pulmon - [facility] pulmonary disease w [facility] with acute lower resp Me dical lower infct Center respirator y infection Obstructiv Obstructiv Problem C ommon e sleep e sleep [facility] apnea apnea - [facility] Allergic Allergic Problem Commo n rhinitis rhinitis [facility] [id number] Pain, Problem Common joint, [facility] knee, left [facility] [id number] Knee Problem Commo n effusion, Spirit left [facility] Osteoporos Osteoporos Problem C ommon is is [facility] Murmur Murmur Problem Common [facility] Fibromyalg Fibromyalg Problem C ommon ia ia [facility] Gastroesop GERD Problem Commo n hageal (gastroeso Spirit reflux phageal - [facility] disease reflux St disease) [facility] [id number] Urinary Problem Commo n incontinen [facility] ce, [facility] [id number] Bladder Problem Commo n spasm [facility] [id number] Coccyx Problem Common pain [facility] [id number] Adult BMI Problem Com mon 33.0-33.9 Spirit kg/sq m [facility] [id number] Left Problem Common sciatic [facility] nerve pain [facility] [id number] Generalize Problem Com mon d anxiety [facility] disorder [facility] [id number] Nonrheumat Problem Co mmon ic mitral Spirit (valve) - [facility] insufficie [facility] [id number] Dizziness Problem Com mon [facility] Fibrocysti Fibrocysti Problem C ommon c breast c breast [facility] changes changes [facility] [id number] Suspected Problem Com mon COVID-19 [facility] virus - [facility] infection [facility] Mixed Depression Problem Commo n anxiety with Spirit and anxiety - [facility] depressive [facility] Exacerbati Unspecifie Problem C ommon on of d asthma [facility] asthma with - [facility] (acute) exacerbati [facility] [id number] PSVT Problem Common (paroxysma Spirit l - [facility] [id number] Current Problem Common moderate [facility] episode of - [facility] major [facility] Medical [facility] prior episode [id number] Primary Problem Comm on osteoarthr Spirit itis of - [facility] left knee [facility] [id number] Tinnitus Problem Com mon 102 of both [facility] ears [facility] Body mass Body mass Problem Com mon index index [facility] 30.00 to (BMI) of - [facility] 34.99 33.0-33.9 [facility] Obesity Other Problem Common due to obesity [facility] excess due to [facility] calories excess [facility] Allergies, Adverse Reactions, Alerts Allergy Allergy Status Severity Reaction(s) Onset Inactive Treating Comm ents Source Name Type Date Date Clinician penicill penicill Active Memori a in in l Jay Em Bactrim Bactrim Active Memoria l Jake NSAIDs NSAIDs Active Memoria l Jake sulfa sulfa Active Memoria drugs drugs l Jake Codeine Codeine Active itchy [facility] Penicill Penicill Active stomach ache Common in [facility] omeprazo omeprazo Active diarrhea Comm on le le [facility] pregabal pregabal Active dizzy [facility] in [facility] Latex Latex Active Unknown [facility] Social History Social Habit Start Date Stop Date Quantity Comments Source Sex Assigned At Common Sp miguel a - [facility] History of Tobacco Common [facility] Use [facility] Social History 2021-03-27 2021-03-27 Rm Josie sonya 20:18:35 20:18:35 Smoking Status Start Date Stop Date Source Never Smoker [facility] Medications Ordered Filled Start Stop Current Ordering Indication Dosage Frequency Signature Comments Components Source Medication Medication Date Date Medication? Clinician (SIG) Name Name Sam Benavidezbevickieiq 2021- No 1{table QD Myrbetriq 25 MG 25 MG 8 11-28 t} 25 MG 00:00: 00:00 00 :00 traMADol traMADol No 1{table traMADol HCl 50 MG HCl 50 MG 05-26 t_as_ne HCl 50 MG 00:00: eded} 00 traMADol traMADol No 1{table traMADol HCl 50 MG HCl 50 MG 7-26 t_as_ne HCl 50 MG 00:00: eded} 00 traMADol traMADol No 1{table traMADol HCl 50 MG HCl 50 MG 7-26 t_as_ne HCl 50 MG 00:00: eded} 00 traMADol traMADol 2-0 No 1{table traMADol HCl 50 MG HCl 50 MG - t_as_ne HCl 50 MG 00:00: eded} 00 traMADol traMADol 2-0 No 1{table traMADol HCl 50 MG HCl 50 MG - t_as_ne HCl 50 MG 00:00: eded} 00 Kenalog Kenalog 2021-0 No 40mg Common (Triamcinol (Triamcinol 6-23 S pirit one) one) 00:00: - [facility] [address] [facility] Bupivicaine Bupivicaine 2-0 No 2.5mg Common Ellijay Ellijay 6-23 Spirit 00:00: - [facility] [address] [facility] Kenalog Kenalog 2021-0 No 40mg Common (Triamcinol (Triamcinol 6-23 S pirit one) one) 00:00: - [facility] [address] [facility] Bupivicaine Bupivicaine 2-0 No 2.5mg Common Ellijay Ellijay 6-23 Spirit 00:00: - [facility] [address] [facility] Kenalog Kenalog 2-0 No 40mg Common (Triamcinol (Triamcinol 6-23 S pirit one) one) 00:00: - [facility] [address] [facility] Bupivicaine Bupivicaine 2-0 No 2.5mg Common Ellijay Ellijay 6-23 Spirit 00:00: - [facility] [address] [facility] Kenalog Kenalog 2-0 No 40mg Common (Triamcinol (Triamcinol 6-23 S pirit one) one) 00:00: - [facility] [address] [facility] Bupivicaine Bupivicaine 2-0 No 2.5mg Common Ellijay Ellijay 6-23 Spirit 00:00: - [facility] [address] [facility] Kenalog Kenalog 2-0 No 40mg Common (Triamcinol (Triamcinol 6-23 S pirit one) one) 00:00: - [facility] [address] [facility] Bupivicaine Bupivicaine 2-0 No 2.5mg Common Ellijay Ellijay 6-23 Spirit 00:00: - [facility] [address] [facility] Kenalog Kenalog 2022-0 No 40mg Common (Triamcinol (Triamcinol 6-23 S pirit one) one) 00:00: - [facility] [address] [facility] Bupivicaine Bupivicaine 2-0 No 2.5mg Common Ellijay Ellijay 6-23 Spirit 00:00: - [facility] [address] [facility] Kenalog Kenalog 2021-0 No 40mg Common (Triamcinol (Triamcinol 6-23 S pirit one) one) 00:00: - [facility] [address] [facility] Bupivicaine Bupivicaine 2-0 No 2.5mg Common Ellijay Ellijay 6-23 Spirit 00:00: - [facility] [address] [facility] diazePAM 5 diazePAM 5 2021-0 No 1{table QD diazePAM 5 MG MG 6-01 t_as_ne MG 00:00: eded} 00 diazePAM 5 diazePAM 5 2021-0 No 1{table QD diazePAM 5 MG MG 6-01 t_as_ne MG 00:00: eded} 00 diazePAM 5 diazePAM 5 2021-0 No 1{table QD diazePAM 5 MG MG 6-01 t_as_ne MG 00:00: eded} 00 diazePAM 5 diazePAM 5 2021-0 No 1{table QD diazePAM 5 MG MG 6-01 t_as_ne MG 00:00: eded} 00 diazePAM 5 diazePAM 5 2021-0 No 1{table QD diazePAM 5 MG MG 6-01 t_as_ne MG 00:00: eded} 00 diazePAM 5 diazePAM 5 2021-0 No 1{table QD diazePAM 5 MG MG 6-01 t_as_ne MG 00:00: eded} 00 diazePAM 5 diazePAM 5 2021-0 No 1{table QD diazePAM 5 MG MG 6-01 t_as_ne MG 00:00: eded} 00 diazePAM 5 diazePAM 5 2021-0 No 1{table QD diazePAM 5 MG MG 6-01 t_as_ne MG 00:00: eded} 00 diazePAM 5 diazePAM 5 2021-0 No 1{table QD diazePAM 5 MG MG 6-01 t_as_ne MG 00:00: eded} 00 Valium 5 MG Valium 5 MG 2021-0 No 1{table Valium 5 4-26 t_as_ne MG 00:00: eded} 00 Valium 5 MG Valium 5 MG 2022-0 No 1{table Valium 5 4-26 t_as_ne MG 00:00: eded} 00 Valium 5 MG Valium 5 MG 2022-0 No 1{table Valium 5 4-26 t_as_ne MG 00:00: eded} 00 Valium 5 MG Valium 5 MG 2022-0 No 1{table Valium 5 4-26 t_as_ne MG 00:00: eded} 00 Valium 5 MG Valium 5 MG 2022-0 No 1{table Valium 5 4-26 t_as_ne MG 00:00: eded} 00 Valium 5 MG Valium 5 MG 2022-0 No 1{table Valium 5 4-26 t_as_ne MG 00:00: eded} 00 Valium 5 MG Valium 5 MG 2022-0 No 1{table Valium 5 4-26 t_as_ne MG 00:00: eded} 00 Valium 5 MG Valium 5 MG 2022-0 No 1{table Valium 5 4-26 t_as_ne MG 00:00: eded} 00 Valium 5 MG Valium 5 MG 2022-0 No 1{table Valium 5 4-26 t_as_ne MG 00:00: eded} 00 Valium 5 MG Valium 5 MG 2022-0 No 1{table Valium 5 4-26 t_as_ne MG 00:00: eded} 00 Valium 5 MG Valium 5 MG 2022-0 No 1{table Valium 5 4-26 t_as_ne MG 00:00: eded} 00 Valium 5 MG Valium 5 MG 2022-0 No 1{table Valium 5 4-26 t_as_ne MG 00:00: eded} 00 Valium 5 MG Valium 5 MG 2022-0 No 1{table Valium 5 4-26 t_as_ne MG 00:00: eded} 00 Hyalgan 20 Hyalgan 20 2021-0 No 20mg C ommon mg mg 4-12 Spirit 00:00: - [facility] [address] [facility] Hyalgan 20 Hyalgan 20 2021-0 No 20mg C ommon mg mg 4-12 Spirit 00:00: - [facility] [address] [facility] Hyalgan 20 Hyalgan 20 2021-0 No 20mg C ommon mg mg 12 Spirit 00:00: - [facility] Hyalgan 20 Hyalgan 20 2021-0 No 20mg C ommon mg mg 02-10 Spirit 00:00: - [facility] Hyalgan 20 Hyalgan 20 2021-0 No 20mg C ommon mg mg 02-10 Spirit 00:00: - [facility] Hyalgan 20 Hyalgan 20 2021-0 No 20mg C ommon mg mg 02-10 Spirit 00:00: - [facility] Hyalgan 20 Hyalgan 20 2021-0 No 20mg C ommon mg mg 02-10 Spirit 00:00: - [facility] Hyalgan 20 Hyalgan 20 2021-0 No 20mg C ommon mg mg 02-10 Spirit 00:00: - [facility] Hyalgan 20 Hyalgan 20 2021-0 No 20mg C ommon mg mg 02-10 Spirit 00:00: - [facility] Hyalgan 20 Hyalgan 20 2021-0 No 20mg C ommon mg mg 02-10 Spirit 00:00: - [facility] Hyalgan 20 Hyalgan 20 2021-0 No 20mg C ommon mg mg 02-10 Spirit 00:00: - [facility] Hyalgan 20 Hyalgan 20 2021-0 No 20mg C ommon mg mg 02-10 [facility] 00:00: - [facility] Hyalgan 20 Hyalgan 20 2021-0 No 20mg C ommon mg mg 02-10 [facility] 00:00: - [facility] Hyalgan 20 Hyalgan 20 2021-0 No 20mg C ommon mg mg 02-10 Spirit 00:00: - [facility] Hyalgan 20 Hyalgan 20 2021-0 No 20mg C ommon mg mg 02-10 Spirit 00:00: - [facility] Hyalgan 20 Hyalgan 20 2021-0 No 20mg C ommon mg mg 02-10 Spirit 00:00: - [facility] Hyalgan 20 Hyalgan 20 2021-0 No 20mg C ommon mg mg 02-10 Spirit 00:00: - [facility] Hyalgan 20 Hyalgan 20 2021-0 No 20mg C ommon mg mg 01-27 Spirit 00:00: - [facility] Hyalgan 20 Hyalgan 20 2021-0 No 20mg C ommon mg mg 01-27 Spirit 00:00: - [facility] Hyalgan 20 Hyalgan 20 2021-0 No 20mg C ommon mg mg 01-27 Spirit 00:00: - [facility] Hyalgan 20 Hyalgan 20 2021-0 No 20mg C ommon mg mg 01-27 Spirit 00:00: - [facility] Hyalgan 20 Hyalgan 20 2021-0 No 20mg C ommon mg mg 01-27 Spirit 00:00: - [facility] Hyalgan 20 Hyalgan 20 2021-0 No 20mg C ommon mg mg 01-27 Spirit 00:00: - [facility] Hyalgan 20 Hyalgan 20 2021-0 No 20mg C ommon mg mg 01-27 Spirit 00:00: - [facility] Hyalgan 20 Hyalgan 20 2021-0 No 20mg C ommon mg mg 01-27 Spirit 00:00: - [facility] Hyalgan 20 Hyalgan 20 2021-0 No 20mg C ommon mg mg 01-27 Spirit 00:00: - [facility] Hyalgan 20 Hyalgan 20 2021-0 No 20mg C ommon mg mg 01-27 Spirit 00:00: - [facility] Hyalgan 20 Hyalgan 20 2021-0 No 20mg C ommon mg mg 01-27 Spirit 00:00: - [facility] Hyalgan 20 Hyalgan 20 2021-0 No 20mg C ommon mg mg 01-27 Spirit 00:00: - [facility] Hyalgan 20 Hyalgan 20 2021-0 No 20mg C ommon mg mg 01-27 Spirit 00:00: - [facility] Hyalgan 20 Hyalgan 20 2021-0 No 20mg C ommon mg mg 01-27 Spirit 00:00: - [facility] Hyalgan 20 Hyalgan 20 2021-0 No 20mg C ommon mg mg 01-27 Spirit 00:00: - [facility] [address] [facility] Hyalgan 20 Hyalgan 20 2021-0 No 20mg C ommon mg mg 01-27 Spirit 00:00: - [facility] [address] [facility] Hyalgan 20 Hyalgan 20 2021-0 No 20mg C ommon mg mg - Spirit 00:00: - [facility] [address] [facility] Bupivicaine Bupivicaine 2021-0 No Common Ellijay Ellijay 3-10 Spirit 00:00: - [facility] [address] [facility] Hyalgan 20 Hyalgan 20 2021-0 No 20mg C ommon mg mg 3-10 Spirit 00:00: - [facility] [address] [facility] Kenalog Kenalog 2021-0 No 40mg Common (Triamcinol (Triamcinol 3-10 S pirit one) one) 00:00: - [facility] [address] [facility] Bupivicaine Bupivicaine 2021-0 No Common Ellijay Ellijay 3-10 Spirit 00:00: - [facility] Hyalgan 20 Hyalgan 20 2021-0 No 20mg C ommon mg mg 3-10 Spirit 00:00: - [facility] [address] [facility] Kenalog Kenalog 2021-0 No 40mg Common (Triamcinol (Triamcinol 3-10 S pirit one) one) 00:00: - [facility] [address] [facility] Bupivicaine Bupivicaine 2021-0 No Common Ellijay Ellijay 3-10 Spirit 00:00: - [facility] [address] [facility] Hyalgan 20 Hyalgan 20 2021-0 No 20mg C ommon mg mg 3-10 Spirit 00:00: - [facility] [address] [facility] Kenalog Kenalog 2021-0 No 40mg Common (Triamcinol (Triamcinol 3-10 S pirit one) one) 00:00: - [facility] [address] [facility] Bupivicaine Bupivicaine 2021-0 No 2.5mg Common Ellijay Ellijay 3-10 Spirit 00:00: - [facility] [address] [facility] Hyalgan 20 Hyalgan 20 2021-0 No 20mg C ommon mg mg 3-10 Spirit 00:00: - [facility] [address] [facility] Kenalog Kenalog 2021-0 No 40mg Common (Triamcinol (Triamcinol 3-10 S pirit one) one) 00:00: - [facility] [address] [facility] Bupivicaine Bupivicaine 2021-0 No 2.5mg Common Ellijay Ellijay 3-10 Spirit 00:00: - [facility] [address] [facility] Hyalgan 20 Hyalgan 20 2021-0 No 20mg C ommon mg mg 3-10 Spirit 00:00: - [facility] [address] [facility] Kenalog Kenalog 2021-0 No 40mg Common (Triamcinol (Triamcinol 3-10 S pirit one) one) 00:00: - [facility] [address] [facility] Bupivicaine Bupivicaine 2021-0 No 2.5mg Common Ellijay Ellijay 3-10 Spirit 00:00: - [facility] [address] [facility] Hyalgan 20 Hyalgan 20 2021-0 No 20mg C ommon mg mg 3-10 Spirit 00:00: - [facility] [address] [facility] Kenalog Kenalog 2021-0 No 40mg Common (Triamcinol (Triamcinol 3-10 S pirit one) one) 00:00: - [facility] [address] [facility] Bupivicaine Bupivicaine 2021-0 No 2.5mg Common Ellijay Ellijay 3-10 Spirit 00:00: - [facility] [address] [facility] Hyalgan 20 Hyalgan 20 2021-0 No 20mg C ommon mg mg 3-10 Spirit 00:00: - [facility] [address] [facility] Kenalog Kenalog 2021-0 No 40mg Common (Triamcinol (Triamcinol 3-10 S pirit one) one) 00:00: - [facility] [address] [facility] Bupivicaine Bupivicaine 2021-0 No 2.5mg Common Ellijay Ellijay 3-10 Spirit 00:00: - [facility] [address] [facility] Hyalgan 20 Hyalgan 20 2021-0 No 20mg C ommon mg mg 3-10 Spirit 00:00: - [facility] [address] [facility] Kenalog Kenalog 2021-0 No 40mg Common (Triamcinol (Triamcinol 3-10 S pirit one) one) 00:00: - [facility] [address] [facility] Bupivicaine Bupivicaine 2-0 No 2.5mg Common Ellijay Ellijay 3-10 [facility] 00:00: - [facility] [address] [facility] Hyalgan 20 Hyalgan 20 2021-0 No 20mg C ommon mg mg 3-10 Spirit 00:00: - [facility] [address] [facility] Kenalog Kenalog 2021-0 No 40mg Common (Triamcinol (Triamcinol 3-10 S pirit one) one) 00:00: - [facility] [address] [facility] Bupivicaine Bupivicaine 2021-0 No 2.5mg Common Ellijay Ellijay 3-10 Spirit 00:00: - [facility] [address] [facility] Hyalgan 20 Hyalgan 20 2021-0 No 20mg C ommon mg mg 3-10 Spirit 00:00: - [facility] [address] [facility] Kenalog Kenalog 2021-0 No 40mg Common (Triamcinol (Triamcinol 3-10 S pirit one) one) 00:00: - [facility] [address] [facility] Bupivicaine Bupivicaine 2021-0 No 2.5mg Common Ellijay Ellijay 3-10 Spirit 00:00: - [facility] [address] [facility] Hyalgan 20 Hyalgan 20 2021-0 No 20mg C ommon mg mg 3-10 Spirit 00:00: - [facility] [address] [facility] Kenalog Kenalog 2021-0 No 40mg Common (Triamcinol (Triamcinol 3-10 S pirit one) one) 00:00: - [facility] [address] [facility] Bupivicaine Bupivicaine 2021-0 No 2.5mg Common Ellijay Ellijay 3-10 Spirit 00:00: - [facility] [address] [facility] Hyalgan 20 Hyalgan 20 2021-0 No 20mg C ommon mg mg 3-10 [facility] 00:00: - [facility] [address] [facility] Kenalog Kenalog 2021-0 No 40mg Common (Triamcinol (Triamcinol 3-10 S pirit one) one) 00:00: - [facility] [address] [facility] Bupivicaine Bupivicaine 2021-0 No 2.5mg Common Ellijay Ellijay 3-10 Spirit 00:00: - [facility] [address] [facility] Hyalgan 20 Hyalgan 20 2021-0 No 20mg C ommon mg mg 3-10 Spirit 00:00: - [facility] [address] [facility] Kenalog Kenalog 2021-0 No 40mg Common (Triamcinol (Triamcinol 3-10 S pirit one) one) 00:00: - [facility] [address] [facility] Kenalog Kenalog 2021-0 No 40mg Common (Triamcinol (Triamcinol 3-10 S pirit one) one) 00:00: - [facility] [address] [facility] Bupivicaine Bupivicaine 2021-0 No 2.5mg Common Ellijay Ellijay 3-10 Spirit 00:00: - [facility] [address] [facility] Hyalgan 20 Hyalgan 20 2021-0 No 20mg C ommon mg mg 3-10 Spirit 00:00: - [facility] [address] [facility] Kenalog Kenalog 2021-0 No 40mg Common (Triamcinol (Triamcinol 3-10 S pirit one) one) 00:00: - [facility] [address] [facility] Bupivicaine Bupivicaine 2021-0 No 2.5mg Common Ellijay Ellijay 3-10 Spirit 00:00: - [facility] [address] [facility] Hyalgan 20 Hyalgan 20 2021-0 No 20mg C ommon mg mg 3-10 Spirit 00:00: - [facility] [address] [facility] Kenalog Kenalog 2021-0 No 40mg Common (Triamcinol (Triamcinol 3-10 S pirit one) one) 00:00: - [facility] [address] [facility] Bupivicaine Bupivicaine 2021-0 No 2.5mg Common Ellijay Ellijay 3-10 Spirit 00:00: - [facility] [address] [facility] Hyalgan 20 Hyalgan 20 2021-0 No 20mg C ommon mg mg 3-10 Spirit 00:00: - [facility] [address] [facility] Kenalog Kenalog 2021-0 No 40mg Common (Triamcinol (Triamcinol 3-10 S pirit one) one) 00:00: - [facility] [address] [facility] Bupivicaine Bupivicaine 2-0 No 2.5mg Common Ellijay Ellijay 3-10 Spirit 00:00: - [facility] [address] [facility] Hyalgan 20 Hyalgan 20 2021-0 No 20mg C ommon mg mg 3-10 Spirit 00:00: - [facility] [address] [facility] Kenalog Kenalog 0 No 40mg Common (Triamcinol (Triamcinol 3-10 S pirit one) one) 00:00: - [facility] Bupivicaine Bupivicaine 2021-0 No 2.5mg Common Ellijay Ellijay 3-10 Spirit 00:00: - [facility] Hyalgan 20 Hyalgan 20 0 No 20mg C ommon mg mg 3-10 [facility] 00:00: - [facility] Kenalog Kenalog 0 No 40mg Common (Triamcinol (Triamcinol 3-10 S pirit one) one) 00:00: - [facility] Bupivicaine Bupivicaine 0 No 2.5mg Common Ellijay Ellijay 3-10 Spirit 00:00: - [facility] Hyalgan 20 Hyalgan 20 2021-0 No 20mg C ommon mg mg 3-10 Spirit 00:00: - [facility] Kenalog Kenalog 0 No 40mg Common (Triamcinol (Triamcinol 3-10 S pirit one) one) 00:00: - [facility] Bupivicaine Bupivicaine 0 No 2.5mg Common Ellijay Ellijay 3-10 Spirit 00:00: - [facility] Hyalgan 20 Hyalgan 20 2021-0 No 20mg C ommon mg mg 3-10 [facility] 00:00: - [facility] Memantine 0 Yes 10 mg = 1 Mem oria hydrochlori - tab, PO, l de 10 MG 19:29: BID, # 180 Her baron Oral Tablet 00 tab, 2 [Namenda] Refill(s), Pharmacy: [facility] #[id number], 152.4, cm, 07/24/21 14:17:00 CDT, Height, 86.818, kg, 07/24/21 14:17:00 CDT, Weight benzonatate Yes 100 mg = 1 Memoria 100 mg oral 07-24 cap, PO, l capsule 19:20: TID, do Jay Em 00 not crush or chew, # 30 cap, 0 Refill(s) azithromyci No TAKE 2 Scott audrey n 250 mg 9-23 TABLETS BY l oral tablet 19:20: MOUTH Shelby nn 00 TODAY, THEN TAKE 1 TABLET DAILY FOR 4 DAYS Benzonatate Benzonatate 2020- No 1{capsu Benzonatat 100 MG 100 MG 07-11 le_as_n e 100 MG 00:00: 00:00 eeded} 00 :00 Benzonatate Benzonatate 2020- No 1{capsu Benzonatat 100 MG 100 MG 07-11 le_as_n e 100 MG 00:00: 00:00 eeded} 00 :00 Benzonatate Benzonatate 2020- No 1{capsu Benzonatat 100 MG 100 MG 07-11 le_as_n e 100 MG 00:00: 00:00 eeded} 00 :00 Azithromyci Azithromyci 2020- No QD Azithromyc n 250 MG n 250 MG 07-1115 in 250 MG 00:00: 00:00 00 :00 Memantine No 5 mg = 1 Scott audrey hydrochlori 8-03 tab, PO, l de 5 MG 14:30: BID, # 180 Herm angy Oral Tablet 00 tab, 2 [Namenda] Refill(s), Pharmacy: [facility] #[id number], 154.94, cm, 04/24/21 13:51:00 CDT, Height, 87.045, kg, 04/24/21 13:51:00 CDT, Weight clindamycin Yes 0 Memori a 300 mg oral 6-24 Refill(s) l capsule 18:59: Jake 00 Mupirocin 0 Yes 0 Memoria 0.02 MG/MG 6-24 Refill(s) l Topical 18:59: Jay Em Ointment 00 Memantine Yes 5 mg = 1 Scott audrey hydrochlori 5-27 tab, PO, l de 5 MG 20:57: BID, # 60 Shelby nn Oral Tablet 00 tab, 3 [Namenda] Refill(s), Pharmacy: [facility] #[id number], 154.94, cm, 03/27/21 15:31:00 CDT, Height, 87.727, kg, 03/27/21 15:31:00 CDT, Weight DilTIAZem Yes 120 mg = 1 Me moria (Eqv-Tiazac 5-27 cap, PO, l ) 120 mg/24 20:25: Daily, 0 He rmann hours oral 00 Refill(s) capsule, extended release ezetimibe Yes TAKE 1 Memori a 10 mg oral 5-27 TABLET BY l tablet 20:24: MOUTH Jake 00 EVERY DAY ProAir HFA Yes 1 - 2 Memori a 5-27 puffs, PO, l 20:24: Q4H, PRN Jake 00 Wheezing / cough / shortness of breath, # 1 ea, 0 Refill(s) Hydroxyzine Yes TAKE 1 Scott audrey Hydrochlori 5-27 CAPSULE BY l de 25 MG 20:23: MOUTH Jake Oral 00 EVERY 8 Capsule HOURS NEEDED FOR NAUSEA FOR 30 DAYS predniSONE Yes 10 mg = 1 Me moria 10 mg oral 5-27 tab, PRN, l tablet 20:23: 0 Jake 00 Refill(s) 60 ACTUAT Yes 2 puffs, Scott audrey tiotropium 5-27 INHALER, l [id number] 20:22: Daily, # 4 Herm angy MG/ACTUAT 00 gm, 0 Metered Refill(s) Dose Inhaler [Spiriva] Hyalgan 20 Hyalgan 20 No 20mg C ommon mg mg 3-23 Spirit 00:00: - [facility] Hyalgan 20 Hyalgan 20 0 No 20mg C ommon mg mg 3-23 Spirit 00:00: - [facility] Hyalgan 20 Hyalgan 20 0 No 20mg C ommon mg mg 3-23 Spirit 00:00: - [facility] Hyalgan 20 Hyalgan 20 0 No 20mg C ommon mg mg 3-23 Spirit 00:00: - [facility] Hyalgan 20 Hyalgan 20 0 No 20mg C ommon mg mg 3-23 Spirit 00:00: - [facility] Hyalgan 20 Hyalgan 20 2020-0 No 20mg C ommon mg mg 01-21 Spirit 00:00: - [facility] Hyalgan 20 Hyalgan 20 2020-0 No 20mg C ommon mg mg 01-21 Spirit 00:00: - [facility] [address] [facility] Hyalgan 20 Hyalgan 20 2020-0 No 20mg C ommon mg mg 01-21 Spirit 00:00: - [facility] Hyalgan 20 Hyalgan 20 2020-0 No 20mg C ommon mg mg 01-21 Spirit 00:00: - [facility] Hyalgan 20 Hyalgan 20 2020-0 No 20mg C ommon mg mg 01-21 Spirit 00:00: - [facility] Hyalgan 20 Hyalgan 20 2020-0 No 20mg C ommon mg mg 01-21 Spirit 00:00: - [facility] Hyalgan 20 Hyalgan 20 2020-0 No 20mg C ommon mg mg 01-21 Spirit 00:00: - [facility] Hyalgan 20 Hyalgan 20 2020-0 No 20mg C ommon mg mg 01-21 Spirit 00:00: - [facility] Hyalgan 20 Hyalgan 20 2020-0 No 20mg C ommon mg mg 01-21 Spirit 00:00: - [facility] Hyalgan 20 Hyalgan 20 2020-0 No 20mg C ommon mg mg 01-21 Spirit 00:00: - [facility] Hyalgan 20 Hyalgan 20 2020-0 No 20mg C ommon mg mg 01-21 Spirit 00:00: - [facility] Hyalgan 20 Hyalgan 20 2020-0 No 20mg C ommon mg mg 01-21 Spirit 00:00: - [facility] Hyalgan 20 Hyalgan 20 2020-0 No 20mg C ommon mg mg 01-21 Spirit 00:00: - [facility] Hyalgan 20 Hyalgan 20 2020-0 No 20mg C ommon mg mg 01-21 Spirit 00:00: - [facility] Hyalgan 20 Hyalgan 20 2020-0 No 20mg C ommon mg mg 01-21 Spirit 00:00: - [facility] Hyalgan 20 Hyalgan 20 2020-0 No 20mg C ommon mg mg 01-09 Spirit 00:00: - [facility] Hyalgan 20 Hyalgan 20 2020-0 No 20mg C ommon mg mg 01-09 Spirit 00:00: - [facility] Hyalgan 20 Hyalgan 20 2020-0 No 20mg C ommon mg mg 01-09 Spirit 00:00: - [facility] Hyalgan 20 Hyalgan 20 2020-0 No 20mg C ommon mg mg 01-09 Spirit 00:00: - [facility] Hyalgan 20 Hyalgan 20 2020-0 No 20mg C ommon mg mg 01-09 Spirit 00:00: - [facility] Hyalgan 20 Hyalgan 20 2020-0 No 20mg C ommon mg mg 01-09 Spirit 00:00: - [facility] Hyalgan 20 Hyalgan 20 2020-0 No 20mg C ommon mg mg 01-09 Spirit 00:00: - [facility] Hyalgan 20 Hyalgan 20 2020-0 No 20mg C ommon mg mg 01-09 Spirit 00:00: - [facility] Hyalgan 20 Hyalgan 20 2020-0 No 20mg C ommon mg mg 01-09 Spirit 00:00: - [facility] Hyalgan 20 Hyalgan 20 2020-0 No 20mg C ommon mg mg 01-09 Spirit 00:00: - [facility] Hyalgan 20 Hyalgan 20 2020-0 No 20mg C ommon mg mg 01-09 Spirit 00:00: - [facility] Hyalgan 20 Hyalgan 20 2020-0 No 20mg C ommon mg mg 01-09 Spirit 00:00: - [facility] Hyalgan 20 Hyalgan 20 2020-0 No 20mg C ommon mg mg 01-09 Spirit 00:00: - [facility] Hyalgan 20 Hyalgan 20 2020-0 No 20mg C ommon mg mg 01-09 Spirit 00:00: - [facility] Hyalgan 20 Hyalgan 20 2021-0 No 20mg C ommon mg mg 01-09 Spirit 00:00: - [facility] Hyalgan 20 Hyalgan 20 2020-0 No 20mg C ommon mg mg 01-09 Spirit 00:00: - [facility] Hyalgan 20 Hyalgan 20 2020-0 No 20mg C ommon mg mg 01-09 Spirit 00:00: - [facility] Hyalgan 20 Hyalgan 20 2020-0 No 20mg C ommon mg mg 01-09 Spirit 00:00: - [facility] Hyalgan 20 Hyalgan 20 2020-0 No 20mg C ommon mg mg 01-09 Spirit 00:00: - [facility] Hyalgan 20 Hyalgan 20 2020-0 No 20mg C ommon mg mg 01-09 Spirit 00:00: - [facility] Hyalgan 20 Hyalgan 20 2020-0 No 20mg C ommon mg mg 01-02 Spirit 00:00: - [facility] Hyalgan 20 Hyalgan 20 2020-0 No 20mg C ommon mg mg 01-02 Spirit 00:00: - [facility] Hyalgan 20 Hyalgan 20 2020-0 No 20mg C ommon mg mg 01-02 Spirit 00:00: - [facility] Hyalgan 20 Hyalgan 20 2020-0 No 20mg C ommon mg mg 01-02 Spirit 00:00: - [facility] Hyalgan 20 Hyalgan 20 2020-0 No 20mg C ommon mg mg 01-02 Spirit 00:00: - [facility] Hyalgan 20 Hyalgan 20 2020-0 No 20mg C ommon mg mg 01-02 Spirit 00:00: - [facility] Hyalgan 20 Hyalgan 20 2020-0 No 20mg C ommon mg mg 01-02 Spirit 00:00: - [facility] Hyalgan 20 Hyalgan 20 2020-0 No 20mg C ommon mg mg 01-02 Spirit 00:00: - [facility] Hyalgan 20 Hyalgan 20 2020-0 No 20mg C ommon mg mg 01-02 Spirit 00:00: - [facility] Hyalgan 20 Hyalgan 20 2021-0 No 20mg C ommon mg mg 01-02 Spirit 00:00: - [facility] Hyalgan 20 Hyalgan 20 2020-0 No 20mg C ommon mg mg 01-02 Spirit 00:00: - [facility] Hyalgan 20 Hyalgan 20 2020-0 No 20mg C ommon mg mg 01-02 Spirit 00:00: - [facility] Hyalgan 20 Hyalgan 20 2020-0 No 20mg C ommon mg mg 01-02 Spirit 00:00: - [facility] Hyalgan 20 Hyalgan 20 2020-0 No 20mg C ommon mg mg 01-02 Spirit 00:00: - [facility] Hyalgan 20 Hyalgan 20 2020-0 No 20mg C ommon mg mg 01-02 Spirit 00:00: - [facility] Hyalgan 20 Hyalgan 20 2020-0 No 20mg C ommon mg mg 01-02 Spirit 00:00: - [facility] Hyalgan 20 Hyalgan 20 2020-0 No 20mg C ommon mg mg 01-02 Spirit 00:00: - [facility] Hyalgan 20 Hyalgan 20 2020-0 No 20mg C ommon mg mg 01-02 Spirit 00:00: - [facility] Hyalgan 20 Hyalgan 20 2020-0 No 20mg C ommon mg mg 01-02 Spirit 00:00: - [facility] Hyalgan 20 Hyalgan 20 2020-0 No 20mg C ommon mg mg 01-02 Spirit 00:00: - [facility] Bupivicaine Bupivicaine 2020-0 No Common Ellijay Ellijay 1-21 Spirit 00:00: - [facility] [address] [facility] Kenalog Kenalog 2020-0 No 40mg Common (Triamcinol (Triamcinol 1-21 S pirit one) one) 00:00: - [facility] [address] [facility] Bupivicaine Bupivicaine 2020-0 No Common Ellijay Ellijay 1-21 Spirit 00:00: - [facility] Kenalog Kenalog 2020-0 No 40mg Common (Triamcinol (Triamcinol 1-21 S pirit one) one) 00:00: - [facility] [address] [facility] Bupivicaine Bupivicaine 2020-0 No Common Ellijay Ellijay 1-21 Spirit 00:00: - [facility] [address] [facility] Kenalog Kenalog 2020-0 No 40mg Common (Triamcinol (Triamcinol 1-21 S pirit one) one) 00:00: - [facility] [address] [facility] Bupivicaine Bupivicaine 2020-0 No 2.5mg Common Ellijay Ellijay 1-21 Spirit 00:00: - [facility] [address] [facility] Kenalog Kenalog 2020-0 No 40mg Common (Triamcinol (Triamcinol 1-21 S pirit one) one) 00:00: - [facility] [address] [facility] Bupivicaine Bupivicaine 2020-0 No 2.5mg Common Ellijay Ellijay 1-21 Spirit 00:00: - [facility] [address] [facility] Kenalog Kenalog 2020-0 No 40mg Common (Triamcinol (Triamcinol 1-21 S pirit one) one) 00:00: - [facility] [address] [facility] Bupivicaine Bupivicaine 2020-0 No 2.5mg Common Ellijay Ellijay 1-21 Spirit 00:00: - [facility] [address] [facility] Kenalog Kenalog 2020-0 No 40mg Common (Triamcinol (Triamcinol 1-21 S pirit one) one) 00:00: - [facility] [address] [facility] Bupivicaine Bupivicaine 2020-0 No 2.5mg Common Ellijay Ellijay 1-21 Spirit 00:00: - [facility] [address] [facility] Kenalog Kenalog 2020-0 No 40mg Common (Triamcinol (Triamcinol 1-21 S pirit one) one) 00:00: - [facility] [address] [facility] Bupivicaine Bupivicaine 2020-0 No 2.5mg Common Ellijay Ellijay 1-21 Spirit 00:00: - [facility] [address] [facility] Kenalog Kenalog 2020-0 No 40mg Common (Triamcinol (Triamcinol 1-21 S pirit one) one) 00:00: - [facility] [address] [facility] Bupivicaine Bupivicaine 2020-0 No 2.5mg Common Ellijay Ellijay 1-21 Spirit 00:00: - [facility] [address] [facility] Kenalog Kenalog 2020-0 No 40mg Common (Triamcinol (Triamcinol 1-21 S pirit one) one) 00:00: - [facility] [address] [facility] Bupivicaine Bupivicaine 2020-0 No 2.5mg Common Ellijay Ellijay 1-21 Spirit 00:00: - [facility] [address] [facility] Kenalog Kenalog 2020-0 No 40mg Common (Triamcinol (Triamcinol 1-21 S pirit one) one) 00:00: - [facility] [address] [facility] Bupivicaine Bupivicaine 2020-0 No 2.5mg Common Ellijay Ellijay 1-21 Spirit 00:00: - [facility] [address] [facility] Hemaalog Kenalog 2020-0 No 40mg Common (Triamcinol (Triamcinol 1-21 S pirit one) one) 00:00: - [facility] [address] [facility] Bupivicaine Bupivicaine 2020-0 No 2.5mg Common Ellijay Ellijay 1-21 Spirit 00:00: - [facility] [address] [facility] Hemaalog Kenalog 2020-0 No 40mg Common (Triamcinol (Triamcinol 1-21 S pirit one) one) 00:00: - [facility] [address] [facility] Bupivicaine Bupivicaine 2020-0 No 2.5mg Common Ellijay Ellijay 1-21 Spirit 00:00: - [facility] [address] [facility] Kenalog Kenalog 2020-0 No 40mg Common (Triamcinol (Triamcinol 1-21 S pirit one) one) 00:00: - [facility] [address] [facility] Bupivicaine Bupivicaine 2020-0 No 2.5mg Common Ellijay Ellijay 1-21 Spirit 00:00: - [facility] [address] [facility] Kenalog Kenalog 2020-0 No 40mg Common (Triamcinol (Triamcinol 1-21 S pirit one) one) 00:00: - [facility] [address] [facility] Bupivicaine Bupivicaine 2020-0 No 2.5mg Common Ellijay Ellijay 1-21 Spirit 00:00: - [facility] [address] [facility] Kenalog Kenalog 2020-0 No 40mg Common (Triamcinol (Triamcinol 1-21 S pirit one) one) 00:00: - [facility] [address] [facility] Bupivicaine Bupivicaine 2020-0 No 2.5mg Common Ellijay Ellijay 1-21 Spirit 00:00: - [facility] [address] [facility] Kenalog Kenalog 2020-0 No 40mg Common (Triamcinol (Triamcinol 1-21 S pirit one) one) 00:00: - [facility] [address] [facility] Bupivicaine Bupivicaine 2020-0 No 2.5mg Common Ellijay Ellijay 1-21 Spirit 00:00: - [facility] [address] [facility] Judy Kenalog 2020-0 No 40mg Common (Triamcinol (Triamcinol 1-21 S pirit one) one) 00:00: - [facility] [address] [facility] Bupivicaine Bupivicaine 2020-0 No 2.5mg Common Ellijay Ellijay 1-21 Spirit 00:00: - [facility] [address] [facility] Hemaalog Kenalog 2020-0 No 40mg Common (Triamcinol (Triamcinol 1-21 S pirit one) one) 00:00: - [facility] [address] [facility] Bupivicaine Bupivicaine 2020-0 No 2.5mg Common Ellijay Ellijay 1-21 Spirit 00:00: - [facility] [address] [facility] Kenalog Kenalog 2020-0 No 40mg Common (Triamcinol (Triamcinol 1-21 S pirit one) one) 00:00: - [facility] [address] [facility] Bupivicaine Bupivicaine 2020-0 No 2.5mg Common Ellijay Ellijay 1-21 Spirit 00:00: - [facility] [address] [facility] Kenalog Kenalog 2020-0 No 40mg Common (Triamcinol (Triamcinol 1-21 S pirit one) one) 00:00: - [facility] [address] [facility] MethylPREDN MethylPREDN 2020-0 Yes Fan as Common ISolone ISolone 4-08 Garcia directed Spiri t 00:00: - [facility] [address] [facility] Alprazolam Alprazolam 2019-1 Yes Fan 1 tablet Common 2-18 Garcia Spirit 00:00: - [facility] [address] [facility] LIDOCAINE LIDOCAINE 2019-0 No 10mg Com mon HCL 10MG/ML HCL 10MG/ML 6-25 S pirit 00:00: - [facility] [address] [facility] Depo-Medrol Depo-Medrol 2019-0 No 20mg Common (Methylpred (Methylpred 6-25 S pirit nisolone) nisolone) 00:00: - C HI 20mg 20mg [address] [facility] LIDOCAINE LIDOCAINE 2019-0 No 10mg Com mon HCL 10MG/ML HCL 10MG/ML 6-25 S pirit 00:00: - [facility] [address] [facility] Depo-Medrol Depo-Medrol 2019-0 No 20mg Common (Methylpred (Methylpred 6-25 S pirit nisolone) nisolone) 00:00: - C HI 20mg 20mg [address] [facility] LIDOCAINE LIDOCAINE 2019-0 No 10mg Com mon HCL 10MG/ML HCL 10MG/ML 6-25 S pirit 00:00: - [facility] [address] [facility] Depo-Medrol Depo-Medrol 2019-0 No 20mg Common (Methylpred (Methylpred 6-25 S pirit nisolone) nisolone) 00:00: - C HI 20mg 20mg [address] [facility] LIDOCAINE LIDOCAINE 2019-0 No 10mg Com mon HCL 10MG/ML HCL 10MG/ML 6-25 S pirit 00:00: - [facility] Depo-Medrol Depo-Medrol 2019-0 No 20mg Common (Methylpred (Methylpred 6-25 S pirit nisolone) nisolone) 00:00: - C HI 20mg 20mg [address] [facility] LIDOCAINE LIDOCAINE 2019-0 No 10mg Com mon HCL 10MG/ML HCL 10MG/ML 6-25 S pirit 00:00: - [facility] [address] [facility] Depo-Medrol Depo-Medrol 2019-0 No 20mg Common (Methylpred (Methylpred 6-25 S pirit nisolone) nisolone) 00:00: - C HI 20mg 20mg [address] [facility] LIDOCAINE LIDOCAINE 2019-0 No 10mg Com mon HCL 10MG/ML HCL 10MG/ML 6-25 S pirit 00:00: - [facility] [address] [facility] Depo-Medrol Depo-Medrol 2019-0 No 20mg Common (Methylpred (Methylpred 6-25 S pirit nisolone) nisolone) 00:00: - C HI 20mg 20mg [address] [facility] LIDOCAINE LIDOCAINE 2019-0 No 10mg Com mon HCL 10MG/ML HCL 10MG/ML 6-25 S pirit 00:00: - [facility] [address] [facility] Depo-Medrol Depo-Medrol 2019-0 No 20mg Common (Methylpred (Methylpred 6-25 S pirit nisolone) nisolone) 00:00: - C HI 20mg 20mg [address] [facility] LIDOCAINE LIDOCAINE 2019-0 No 10mg Com mon HCL 10MG/ML HCL 10MG/ML 6-25 S pirit 00:00: - [facility] Depo-Medrol Depo-Medrol 2019-0 No 20mg Common (Methylpred (Methylpred 6-25 S pirit nisolone) nisolone) 00:00: - C HI 20mg 20mg [address] [facility] LIDOCAINE LIDOCAINE 2019-0 No 10mg Com mon HCL 10MG/ML HCL 10MG/ML 6-25 S pirit 00:00: - [facility] [address] [facility] Depo-Medrol Depo-Medrol 2019-0 No 20mg Common (Methylpred (Methylpred 6-25 S pirit nisolone) nisolone) 00:00: - C HI 20mg 20mg [address] [facility] LIDOCAINE LIDOCAINE 2019-0 No 10mg Com mon HCL 10MG/ML HCL 10MG/ML 6-25 S pirit 00:00: - [facility] [address] [facility] Depo-Medrol Depo-Medrol 2019-0 No 20mg Common (Methylpred (Methylpred 6-25 S pirit nisolone) nisolone) 00:00: - C HI 20mg 20mg [address] [facility] LIDOCAINE LIDOCAINE 2019-0 No 10mg Com mon HCL 10MG/ML HCL 10MG/ML 6-25 S pirit 00:00: - [facility] [address] [facility] Depo-Medrol Depo-Medrol 2019-0 No 20mg Common (Methylpred (Methylpred 6-25 S pirit nisolone) nisolone) 00:00: - C HI 20mg 20mg [address] [facility] LIDOCAINE LIDOCAINE 2019-0 No 10mg Com mon HCL 10MG/ML HCL 10MG/ML 6-25 S pirit 00:00: - [facility] [address] [facility] Depo-Medrol Depo-Medrol 2019-0 No 20mg Common (Methylpred (Methylpred 6-25 S pirit nisolone) nisolone) 00:00: - C HI 20mg 20mg [address] [facility] LIDOCAINE LIDOCAINE 2019-0 No 10mg Com mon HCL 10MG/ML HCL 10MG/ML 6-25 S pirit 00:00: - [facility] [address] [facility] Depo-Medrol Depo-Medrol 2019-0 No 20mg Common (Methylpred (Methylpred 6-25 S pirit nisolone) nisolone) 00:00: - C HI 20mg 20mg [address] [facility] Depo-Medrol Depo-Medrol 2019-0 No 20mg Common (Methylpred (Methylpred 6-25 S pirit nisolone) nisolone) 00:00: - C HI 20mg 20mg [address] [facility] LIDOCAINE LIDOCAINE 2019-0 No 10mg Com mon HCL 10MG/ML HCL 10MG/ML 6-25 S pirit 00:00: - [facility] [address] [facility] Depo-Medrol Depo-Medrol 2019-0 No 20mg Common (Methylpred (Methylpred 6-25 S pirit nisolone) nisolone) 00:00: - C HI 20mg 20mg [address] [facility] LIDOCAINE LIDOCAINE 2019-0 No 10mg Com mon HCL 10MG/ML HCL 10MG/ML 6-25 S pirit 00:00: - [facility] [address] [facility] Depo-Medrol Depo-Medrol 2019-0 No 20mg Common (Methylpred (Methylpred 6-25 S pirit nisolone) nisolone) 00:00: - C HI 20mg 20mg [address] [facility] LIDOCAINE LIDOCAINE 2019-0 No 10mg Com mon HCL 10MG/ML HCL 10MG/ML 6-25 S pirit 00:00: - [facility] [address] [facility] Depo-Medrol Depo-Medrol 2019-0 No 20mg Common (Methylpred (Methylpred 6-25 S pirit nisolone) nisolone) 00:00: - C HI 20mg 20mg [address] [facility] LIDOCAINE LIDOCAINE 2018-0 No 10mg Com mon HCL 10MG/ML HCL 10MG/ML 6-25 S pirit 00:00: - [facility] Depo-Medrol Depo-Medrol No 20mg Common (Methylpred (Methylpred 6-25 S pirit nisolone) nisolone) 00:00: - C HI 20mg 20mg [address] [facility] LIDOCAINE LIDOCAINE No 10mg Com mon HCL 10MG/ML HCL 10MG/ML 6-25 S pirit 00:00: - [facility] Depo-Medrol Depo-Medrol 2018-0 No 20mg Common (Methylpred (Methylpred 6-25 S pirit nisolone) nisolone) 00:00: - C HI 20mg 20mg [address] [facility] LIDOCAINE LIDOCAINE No 10mg Com mon HCL 10MG/ML HCL 10MG/ML 6-25 S pirit 00:00: - [facility] Depo-Medrol Depo-Medrol 0 No 20mg Common (Methylpred (Methylpred 6-25 S pirit nisolone) nisolone) 00:00: - C HI 20mg 20mg [address] [facility] LIDOCAINE LIDOCAINE No 10mg Com mon HCL 10MG/ML HCL 10MG/ML 6-25 S pirit 00:00: - [facility] ProAir HFA ProAir HFA Yes Fan 2 puffs as Common Garcia needed [facility] Fish Oil Fish Oil Yes Fan 1 capsule Common Garcia [facility] Fluoxetine Fluoxetine Yes Fan 1 capsule Common HCl HCl Garcia in the [facility] morning [facility] Hydrocodone Hydrocodone Yes Fan (Schedule Common -Acetaminop -Acetaminop Garcia II Drug) Spirit faheem hen TAKE 1 - [facility] TABLET BY [facility] EVERY 4-6 Medical HOURS Center NEEDED FOR PAIN. Gabapentin Gabapentin Yes Fan 1 capsule Common Garcia [facility] Montelukast Montelukast Yes Fan 1 tablet Common Sodium Sodium Garcia in the [facility] evening [facility] Ezetimibe Ezetimibe Yes Fan 1 tablet Common Garcia [facility] Vistaril Vistaril Yes Fan 1 capsule Common Garcia as needed [facility] Melatonin Melatonin Yes Fan 1 tablet Common Garcia at bedtime [facility] as needed - [facility] with food [facility] Multi Multi Yes Fan 1 tablet Common Vitamin Vitamin [facility] Omeprazole Omeprazole Yes Fan [address] [facility] PredniSONE PredniSONE Yes Fan 1 tablet Common Garcia as needed [facility] Diltiazem Diltiazem Yes Fan 1 tablet Common HCl HCl [facility] Protonix Protonix Yes Fan [address] [facility] Symbicort Symbicort Yes Fan 2 puffs [facility] ALPRAZolam ALPRAZolam No 1{table ALPRAZolam 0.25 MG 0.25 MG t} 0.25 MG methylPREDN methylPREDN No methylPRED ISolone 4 ISolone 4 NISolone 4 MG MG MG dilTIAZem dilTIAZem No 1{table QD dilTIAZem HCl 120 MG HCl 120 MG t} HCl 120 MG Symbicort Symbicort No 2{puffs BID Symbicort 160-4.5 160-4.5 } 160-4.5 MCG/ACT MCG/ACT MCG/ACT Diazepam 5 Diazepam 5 No Diazepam 5 MG MG MG Vistaril 25 Vistaril 25 No 1{capsu Vistaril MG MG le_as_n 25 MG eeded} Meclizine Meclizine No 1{table QD Meclizine HCl 25 MG HCl 25 MG t_as_ne HCl 25 MG eded} Pepcid Pepcid No Pepcid FLUoxetine FLUoxetine No 1{capsu QD FLUoxetine HCl 20 MG HCl 20 MG le_in_t HCl 20 MG he_morn ing} ProAir HFA ProAir HFA No 2{puffs QID ProAir HFA 108 (90 108 (90 _as_nee 108 (90 Base) Base) ded} Base) MCG/ACT MCG/ACT MCG/ACT Melatonin 5 Melatonin 5 No 1{table QD Melatonin MG MG t_at_be 5 MG dtime_a s_neede d_with_ food} Multi Multi No 1{table QD Multi Vitamin - Vitamin - t} Vitamin - Omeprazole Omeprazole No 1{capsu QD Omeprazole 40 MG 40 MG le} 40 MG Ezetimibe Ezetimibe No 1{table QD Ezetimibe 10 MG 10 MG t} 10 MG Gabapentin Gabapentin No 1{capsu TID Gabapentin 100 MG 100 MG le} 100 MG Montelukast Montelukast No 1{table QD Montelukas Sodium 10 Sodium 10 t_in_th t Sodium MG MG e_eveni 10 MG ng} predniSONE predniSONE No predniSONE Vistaril 25 Vistaril 25 No 1{capsu Vistaril MG MG le_as_n 25 MG eeded} Protonix 40 Protonix 40 No 1{table QD Protonix MG MG t} 40 MG Fish Oil Fish Oil No 1{capsu QD Fish Oil 1200 MG 1200 MG le} 1200 MG Protonix 40 Protonix 40 No 1{table QD Protonix MG MG t} 40 MG Omeprazole Omeprazole No 1{capsu QD Omeprazole 40 MG 40 MG le} 40 MG Symbicort Symbicort No 2{puffs BID Symbicort 160-4.5 160-4.5 } 160-4.5 MCG/ACT MCG/ACT MCG/ACT Vistaril 25 Vistaril 25 No 1{capsu Vistaril MG MG le_as_n 25 MG eeded} Gabapentin Gabapentin No 1{capsu TID Gabapentin 100 MG 100 MG le} 100 MG ALPRAZolam ALPRAZolam No 1{table ALPRAZolam 0.25 MG 0.25 MG t} 0.25 MG Diazepam 5 Diazepam 5 No Diazepam 5 MG MG MG methylPREDN methylPREDN No methylPRED ISolone 4 ISolone 4 NISolone 4 MG MG MG Vistaril 25 Vistaril 25 No 1{capsu Vistaril MG MG le_as_n 25 MG eeded} Meclizine Meclizine No 1{table QD Meclizine HCl 25 MG HCl 25 MG t_as_ne HCl 25 MG eded} predniSONE predniSONE No predniSONE Ezetimibe Ezetimibe No 1{table QD Ezetimibe 10 MG 10 MG t} 10 MG Melatonin 5 Melatonin 5 No 1{table QD Melatonin MG MG t_at_be 5 MG dtime_a s_neede d_with_ food} Montelukast Montelukast No 1{table QD Montelukas Sodium 10 Sodium 10 t_in_th t Sodium MG MG e_eveni 10 MG ng} Pepcid Pepcid No Pepcid Multi Multi No 1{table QD Multi Vitamin - Vitamin - t} Vitamin - dilTIAZem dilTIAZem No 1{table QD dilTIAZem HCl 120 MG HCl 120 MG t} HCl 120 MG Fish Oil Fish Oil No 1{capsu QD Fish Oil 1200 MG 1200 MG le} 1200 MG FLUoxetine FLUoxetine No 1{capsu QD FLUoxetine HCl 20 MG HCl 20 MG le_in_t HCl 20 MG he_morn ing} ProAir HFA ProAir HFA No 2{puffs QID ProAir HFA 108 (90 108 (90 _as_nee 108 (90 Base) Base) ded} Base) MCG/ACT MCG/ACT MCG/ACT Gabapentin Gabapentin No 1{capsu TID Gabapentin 100 MG 100 MG le} 100 MG Melatonin 5 Melatonin 5 No 1{table QD Melatonin MG MG t_at_be 5 MG dtime_a s_neede d_with_ food} Omeprazole Omeprazole No 1{capsu QD Omeprazole 40 MG 40 MG le} 40 MG Vistaril 25 Vistaril 25 No 1{capsu Vistaril MG MG le_as_n 25 MG eeded} Protonix 40 Protonix 40 No 1{table QD Protonix MG MG t} 40 MG Ezetimibe Ezetimibe No 1{table QD Ezetimibe 10 MG 10 MG t} 10 MG Symbicort Symbicort No 2{puffs BID Symbicort 160-4.5 160-4.5 } 160-4.5 MCG/ACT MCG/ACT MCG/ACT FLUoxetine FLUoxetine No 1{capsu QD FLUoxetine HCl 20 MG HCl 20 MG le_in_t HCl 20 MG he_morn ing} methylPREDN methylPREDN No methylPRED ISolone 4 ISolone 4 NISolone 4 MG MG MG predniSONE predniSONE No predniSONE Vistaril 25 Vistaril 25 No 1{capsu Vistaril MG MG le_as_n 25 MG eeded} ProAir HFA ProAir HFA No 2{puffs QID ProAir HFA 108 (90 108 (90 _as_nee 108 (90 Base) Base) ded} Base) MCG/ACT MCG/ACT MCG/ACT Meclizine Meclizine No 1{table QD Meclizine HCl 25 MG HCl 25 MG t_as_ne HCl 25 MG eded} Montelukast Montelukast No 1{table QD Montelukas Sodium 10 Sodium 10 t_in_th t Sodium MG MG e_eveni 10 MG ng} Pepcid Pepcid No Pepcid dilTIAZem dilTIAZem No 1{table QD dilTIAZem HCl 120 MG HCl 120 MG t} HCl 120 MG Ezetimibe Ezetimibe No 1{table QD Ezetimibe 10 MG 10 MG t} 10 MG Fish Oil Fish Oil No 1{capsu QD Fish Oil 1200 MG 1200 MG le} 1200 MG Diazepam 5 Diazepam 5 No Diazepam 5 MG MG MG ALPRAZolam ALPRAZolam No 1{table ALPRAZolam 0.25 MG 0.25 MG t} 0.25 MG Multi Multi No 1{table QD Multi Vitamin - Vitamin - t} Vitamin - Gabapentin Gabapentin No 1{capsu TID Gabapentin 100 MG 100 MG le} 100 MG Melatonin 5 Melatonin 5 No 1{table QD Melatonin MG MG t_at_be 5 MG dtime_a s_neede d_with_ food} Omeprazole Omeprazole No 1{capsu QD Omeprazole 40 MG 40 MG le} 40 MG Vistaril 25 Vistaril 25 No 1{capsu Vistaril MG MG le_as_n 25 MG eeded} Protonix 40 Protonix 40 No 1{table QD Protonix MG MG t} 40 MG Ezetimibe Ezetimibe No 1{table QD Ezetimibe 10 MG 10 MG t} 10 MG Symbicort Symbicort No 2{puffs BID Symbicort 160-4.5 160-4.5 } 160-4.5 MCG/ACT MCG/ACT MCG/ACT FLUoxetine FLUoxetine No 1{capsu QD FLUoxetine HCl 20 MG HCl 20 MG le_in_t HCl 20 MG he_morn ing} methylPREDN methylPREDN No methylPRED ISolone 4 ISolone 4 NISolone 4 MG MG MG predniSONE predniSONE No predniSONE Vistaril 25 Vistaril 25 No 1{capsu Vistaril MG MG le_as_n 25 MG eeded} ProAir HFA ProAir HFA No 2{puffs QID ProAir HFA 108 (90 108 (90 _as_nee 108 (90 Base) Base) ded} Base) MCG/ACT MCG/ACT MCG/ACT Meclizine Meclizine No 1{table QD Meclizine HCl 25 MG HCl 25 MG t_as_ne HCl 25 MG eded} Montelukast Montelukast No 1{table QD Montelukas Sodium 10 Sodium 10 t_in_th t Sodium MG MG e_eveni 10 MG ng} Pepcid Pepcid No Pepcid dilTIAZem dilTIAZem No 1{table QD dilTIAZem HCl 120 MG HCl 120 MG t} HCl 120 MG Ezetimibe Ezetimibe No 1{table QD Ezetimibe 10 MG 10 MG t} 10 MG Fish Oil Fish Oil No 1{capsu QD Fish Oil 1200 MG 1200 MG le} 1200 MG Diazepam 5 Diazepam 5 No Diazepam 5 MG MG MG ALPRAZolam ALPRAZolam No 1{table ALPRAZolam 0.25 MG 0.25 MG t} 0.25 MG Multi Multi No 1{table QD Multi Vitamin - Vitamin - t} Vitamin - Protonix 40 Protonix 40 No 1{table QD Protonix MG MG t} 40 MG Gabapentin Gabapentin No 1{capsu TID Gabapentin 100 MG 100 MG le} 100 MG Symbicort Symbicort No 2{puffs BID Symbicort 160-4.5 160-4.5 } 160-4.5 MCG/ACT MCG/ACT MCG/ACT Vistaril 25 Vistaril 25 No 1{capsu Vistaril MG MG le_as_n 25 MG eeded} Omeprazole Omeprazole No 1{capsu QD Omeprazole 40 MG 40 MG le} 40 MG ProAir HFA ProAir HFA No 2{puffs QID ProAir HFA 108 (90 108 (90 _as_nee 108 (90 Base) Base) ded} Base) MCG/ACT MCG/ACT MCG/ACT Ezetimibe Ezetimibe No 1{table QD Ezetimibe 10 MG 10 MG t} 10 MG FLUoxetine FLUoxetine No 1{capsu QD FLUoxetine HCl 20 MG HCl 20 MG le_in_t HCl 20 MG he_morn ing} Ezetimibe Ezetimibe No 1{table QD Ezetimibe 10 MG 10 MG t} 10 MG methylPREDN methylPREDN No methylPRED ISolone 4 ISolone 4 NISolone 4 MG MG MG dilTIAZem dilTIAZem No 1{table QD dilTIAZem HCl 120 MG HCl 120 MG t} HCl 120 MG predniSONE predniSONE No predniSONE ALPRAZolam ALPRAZolam No 1{table ALPRAZolam 0.25 MG 0.25 MG t} 0.25 MG Multi Multi No 1{table QD Multi Vitamin - Vitamin - t} Vitamin - Fish Oil Fish Oil No 1{capsu QD Fish Oil 1200 MG 1200 MG le} 1200 MG Vistaril 25 Vistaril 25 No 1{capsu Vistaril MG MG le_as_n 25 MG eeded} Meclizine Meclizine No 1{table QD Meclizine HCl 25 MG HCl 25 MG t_as_ne HCl 25 MG eded} Montelukast Montelukast No 1{table QD Montelukas Sodium 10 Sodium 10 t_in_th t Sodium MG MG e_eveni 10 MG ng} Diazepam 5 Diazepam 5 No Diazepam 5 MG MG MG Pepcid Pepcid No Pepcid Melatonin 5 Melatonin 5 No 1{table QD Melatonin MG MG t_at_be 5 MG dtime_a s_neede d_with_ food} ProAir HFA ProAir HFA No 2{puffs QID ProAir HFA 108 (90 108 (90 _as_nee 108 (90 Base) Base) ded} Base) MCG/ACT MCG/ACT MCG/ACT dilTIAZem dilTIAZem No 1{table QD dilTIAZem HCl 120 MG HCl 120 MG t} HCl 120 MG ALPRAZolam ALPRAZolam No 1{table ALPRAZolam 0.25 MG 0.25 MG t} 0.25 MG Gabapentin Gabapentin No 1{capsu TID Gabapentin 100 MG 100 MG le} 100 MG FLUoxetine FLUoxetine No 1{capsu QD FLUoxetine HCl 20 MG HCl 20 MG le_in_t HCl 20 MG he_morn ing} Ezetimibe Ezetimibe No 1{table QD Ezetimibe 10 MG 10 MG t} 10 MG Vistaril 25 Vistaril 25 No 1{capsu Vistaril MG MG le_as_n 25 MG eeded} Omeprazole Omeprazole No 1{capsu QD Omeprazole 40 MG 40 MG le} 40 MG Vistaril 25 Vistaril 25 No 1{capsu Vistaril MG MG le_as_n 25 MG eeded} Gabapentin Gabapentin No 1{capsu TID Gabapentin 100 MG 100 MG le} 100 MG dilTIAZem dilTIAZem No 1{table QD dilTIAZem HCl 120 MG HCl 120 MG t} HCl 120 MG Omeprazole Omeprazole No 1{capsu QD Omeprazole 40 MG 40 MG le} 40 MG ProAir HFA ProAir HFA No 2{puffs QID ProAir HFA 108 (90 108 (90 _as_nee 108 (90 Base) Base) ded} Base) MCG/ACT MCG/ACT MCG/ACT FLUoxetine FLUoxetine No 1{capsu QD FLUoxetine HCl 20 MG HCl 20 MG le_in_t HCl 20 MG he_morn ing} ALPRAZolam ALPRAZolam No 1{table ALPRAZolam 0.25 MG 0.25 MG t} 0.25 MG Ezetimibe Ezetimibe No 1{table QD Ezetimibe 10 MG 10 MG t} 10 MG FLUoxetine FLUoxetine No 1{capsu QD HCl 20 MG HCl 20 MG le_in_t he_morn ing} Gabapentin Gabapentin No 1{capsu TID 100 MG 100 MG le} Omeprazole Omeprazole No 1{capsu QD 40 MG 40 MG le} Ezetimibe Ezetimibe No 1{table QD 10 MG 10 MG t} dilTIAZem dilTIAZem No 1{table QD HCl 120 MG HCl 120 MG t} Vistaril 25 Vistaril 25 No 1{capsu MG MG le_as_n eeded} ALPRAZolam ALPRAZolam No 1{table 0.25 MG 0.25 MG t} ProAir HFA ProAir HFA No 2{puffs QID 108 (90 108 (90 _as_nee Base) Base) ded} MCG/ACT MCG/ACT FLUoxetine FLUoxetine No 1{capsu QD FLUoxetine HCl 20 MG HCl 20 MG le_in_t HCl 20 MG he_morn ing} Gabapentin Gabapentin No 1{capsu TID Gabapentin 100 MG 100 MG le} 100 MG Omeprazole Omeprazole No 1{capsu QD Omeprazole 40 MG 40 MG le} 40 MG Ezetimibe Ezetimibe No 1{table QD Ezetimibe 10 MG 10 MG t} 10 MG dilTIAZem dilTIAZem No 1{table QD dilTIAZem HCl 120 MG HCl 120 MG t} HCl 120 MG Vistaril 25 Vistaril 25 No 1{capsu Vistaril MG MG le_as_n 25 MG eeded} ALPRAZolam ALPRAZolam No 1{table ALPRAZolam 0.25 MG 0.25 MG t} 0.25 MG ProAir HFA ProAir HFA No 2{puffs QID ProAir HFA 108 (90 108 (90 _as_nee 108 (90 Base) Base) ded} Base) MCG/ACT MCG/ACT MCG/ACT FLUoxetine FLUoxetine No 1{capsu QD FLUoxetine HCl 20 MG HCl 20 MG le_in_t HCl 20 MG he_morn ing} Gabapentin Gabapentin No 1{capsu TID Gabapentin 100 MG 100 MG le} 100 MG Omeprazole Omeprazole No 1{capsu QD Omeprazole 40 MG 40 MG le} 40 MG Ezetimibe Ezetimibe No 1{table QD Ezetimibe 10 MG 10 MG t} 10 MG dilTIAZem dilTIAZem No 1{table QD dilTIAZem HCl 120 MG HCl 120 MG t} HCl 120 MG Vistaril 25 Vistaril 25 No 1{capsu Vistaril MG MG le_as_n 25 MG eeded} ALPRAZolam ALPRAZolam No 1{table ALPRAZolam 0.25 MG 0.25 MG t} 0.25 MG ProAir HFA ProAir HFA No 2{puffs QID ProAir HFA 108 (90 108 (90 _as_nee 108 (90 Base) Base) ded} Base) MCG/ACT MCG/ACT MCG/ACT Memantine Memantine No Memantine HCl HCl HCl Vistaril 25 Vistaril 25 No 1{capsu Vistaril MG MG le_as_n 25 MG eeded} Ezetimibe Ezetimibe No 1{table QD Ezetimibe 10 MG 10 MG t} 10 MG ProAir HFA ProAir HFA No 2{puffs QID ProAir HFA 108 (90 108 (90 _as_nee 108 (90 Base) Base) ded} Base) MCG/ACT MCG/ACT MCG/ACT ALPRAZolam ALPRAZolam No 1{table ALPRAZolam 0.25 MG 0.25 MG t} 0.25 MG Gabapentin Gabapentin No 1{capsu TID Gabapentin 100 MG 100 MG le} 100 MG dilTIAZem dilTIAZem No 1{table QD dilTIAZem HCl 120 MG HCl 120 MG t} HCl 120 MG Omeprazole Omeprazole No 1{capsu QD Omeprazole 40 MG 40 MG le} 40 MG FLUoxetine FLUoxetine No 1{capsu QD FLUoxetine HCl 20 MG HCl 20 MG le_in_t HCl 20 MG he_morn ing} Memantine Memantine No Memantine HCl HCl HCl Ezetimibe Ezetimibe No 1{table QD Ezetimibe 10 MG 10 MG t} 10 MG Gabapentin Gabapentin No 1{capsu TID Gabapentin 100 MG 100 MG le} 100 MG Vistaril 25 Vistaril 25 No 1{capsu Vistaril MG MG le_as_n 25 MG eeded} ALPRAZolam ALPRAZolam No 1{table ALPRAZolam 0.25 MG 0.25 MG t} 0.25 MG ProAir HFA ProAir HFA No 2{puffs QID ProAir HFA 108 (90 108 (90 _as_nee 108 (90 Base) Base) ded} Base) MCG/ACT MCG/ACT MCG/ACT CholestOff CholestOff No CholestOff 450 MG 450 MG 450 MG Omeprazole Omeprazole No 1{capsu QD Omeprazole 40 MG 40 MG le} 40 MG dilTIAZem dilTIAZem No 1{table QD dilTIAZem HCl 120 MG HCl 120 MG t} HCl 120 MG FLUoxetine FLUoxetine No 1{capsu QD FLUoxetine HCl 20 MG HCl 20 MG le_in_t HCl 20 MG he_morn ing} Memantine Memantine No Memantine HCl HCl HCl Ezetimibe Ezetimibe No 1{table QD Ezetimibe 10 MG 10 MG t} 10 MG Gabapentin Gabapentin No 1{capsu TID Gabapentin 100 MG 100 MG le} 100 MG Vistaril 25 Vistaril 25 No 1{capsu Vistaril MG MG le_as_n 25 MG eeded} ALPRAZolam ALPRAZolam No 1{table ALPRAZolam 0.25 MG 0.25 MG t} 0.25 MG ProAir HFA ProAir HFA No 2{puffs QID ProAir HFA 108 (90 108 (90 _as_nee 108 (90 Base) Base) ded} Base) MCG/ACT MCG/ACT MCG/ACT CholestOff CholestOff No CholestOff 450 MG 450 MG 450 MG Omeprazole Omeprazole No 1{capsu QD Omeprazole 40 MG 40 MG le} 40 MG dilTIAZem dilTIAZem No 1{table QD dilTIAZem HCl 120 MG HCl 120 MG t} HCl 120 MG FLUoxetine FLUoxetine No 1{capsu QD FLUoxetine HCl 20 MG HCl 20 MG le_in_t HCl 20 MG he_morn ing} Ezetimibe Ezetimibe No 1{table QD Ezetimibe 10 MG 10 MG t} 10 MG Memantine Memantine No Memantine HCl HCl HCl Omeprazole Omeprazole No 1{capsu QD Omeprazole 40 MG 40 MG le} 40 MG ALPRAZolam ALPRAZolam No 1{table ALPRAZolam 0.25 MG 0.25 MG t} 0.25 MG Vistaril 25 Vistaril 25 No 1{capsu Vistaril MG MG le_as_n 25 MG eeded} dilTIAZem dilTIAZem No 1{table QD dilTIAZem HCl 120 MG HCl 120 MG t} HCl 120 MG ProAir HFA ProAir HFA No 2{puffs QID ProAir HFA 108 (90 108 (90 _as_nee 108 (90 Base) Base) ded} Base) MCG/ACT MCG/ACT MCG/ACT Gabapentin Gabapentin No 1{capsu TID Gabapentin 100 MG 100 MG le} 100 MG FLUoxetine FLUoxetine No 1{capsu QD FLUoxetine HCl 20 MG HCl 20 MG le_in_t HCl 20 MG he_morn ing} CholestOff CholestOff No CholestOff 450 MG 450 MG 450 MG Ezetimibe Ezetimibe No 1{table QD Ezetimibe 10 MG 10 MG t} 10 MG Memantine Memantine No Memantine HCl HCl HCl Omeprazole Omeprazole No 1{capsu QD Omeprazole 40 MG 40 MG le} 40 MG ALPRAZolam ALPRAZolam No 1{table ALPRAZolam 0.25 MG 0.25 MG t} 0.25 MG Vistaril 25 Vistaril 25 No 1{capsu Vistaril MG MG le_as_n 25 MG eeded} dilTIAZem dilTIAZem No 1{table QD dilTIAZem HCl 120 MG HCl 120 MG t} HCl 120 MG ProAir HFA ProAir HFA No 2{puffs QID ProAir HFA 108 (90 108 (90 _as_nee 108 (90 Base) Base) ded} Base) MCG/ACT MCG/ACT MCG/ACT Gabapentin Gabapentin No 1{capsu TID Gabapentin 100 MG 100 MG le} 100 MG FLUoxetine FLUoxetine No 1{capsu QD FLUoxetine HCl 20 MG HCl 20 MG le_in_t HCl 20 MG he_morn ing} CholestOff CholestOff No CholestOff 450 MG 450 MG 450 MG Ezetimibe Ezetimibe No 1{table QD Ezetimibe 10 MG 10 MG t} 10 MG Memantine Memantine No Memantine HCl HCl HCl Omeprazole Omeprazole No 1{capsu QD Omeprazole 40 MG 40 MG le} 40 MG ALPRAZolam ALPRAZolam No 1{table ALPRAZolam 0.25 MG 0.25 MG t} 0.25 MG Vistaril 25 Vistaril 25 No 1{capsu Vistaril MG MG le_as_n 25 MG eeded} dilTIAZem dilTIAZem No 1{table QD dilTIAZem HCl 120 MG HCl 120 MG t} HCl 120 MG ProAir HFA ProAir HFA No 2{puffs QID ProAir HFA 108 (90 108 (90 _as_nee 108 (90 Base) Base) ded} Base) MCG/ACT MCG/ACT MCG/ACT Gabapentin Gabapentin No 1{capsu TID Gabapentin 100 MG 100 MG le} 100 MG FLUoxetine FLUoxetine No 1{capsu QD FLUoxetine HCl 20 MG HCl 20 MG le_in_t HCl 20 MG he_morn ing} CholestOff CholestOff No CholestOff 450 MG 450 MG 450 MG Ezetimibe Ezetimibe No 1{table QD Ezetimibe 10 MG 10 MG t} 10 MG Memantine Memantine No Memantine HCl HCl HCl Omeprazole Omeprazole No 1{capsu QD Omeprazole 40 MG 40 MG le} 40 MG ALPRAZolam ALPRAZolam No 1{table ALPRAZolam 0.25 MG 0.25 MG t} 0.25 MG Vistaril 25 Vistaril 25 No 1{capsu Vistaril MG MG le_as_n 25 MG eeded} dilTIAZem dilTIAZem No 1{table QD dilTIAZem HCl 120 MG HCl 120 MG t} HCl 120 MG ProAir HFA ProAir HFA No 2{puffs QID ProAir HFA 108 (90 108 (90 _as_nee 108 (90 Base) Base) ded} Base) MCG/ACT MCG/ACT MCG/ACT Gabapentin Gabapentin No 1{capsu TID Gabapentin 100 MG 100 MG le} 100 MG FLUoxetine FLUoxetine No 1{capsu QD FLUoxetine HCl 20 MG HCl 20 MG le_in_t HCl 20 MG he_morn ing} CholestOff CholestOff No CholestOff 450 MG 450 MG 450 MG dilTIAZem dilTIAZem No 1{table QD dilTIAZem HCl 120 MG HCl 120 MG t} HCl 120 MG Omeprazole Omeprazole No 1{capsu QD Omeprazole 40 MG 40 MG le} 40 MG Memantine Memantine No Memantine HCl HCl HCl Vistaril 25 Vistaril 25 No 1{capsu Vistaril MG MG le_as_n 25 MG eeded} FLUoxetine FLUoxetine No 1{capsu QD FLUoxetine HCl 20 MG HCl 20 MG le_in_t HCl 20 MG he_morn ing} CholestOff CholestOff No CholestOff 450 MG 450 MG 450 MG Ezetimibe Ezetimibe No 1{table QD Ezetimibe 10 MG 10 MG t} 10 MG Gabapentin Gabapentin No 1{capsu TID Gabapentin 100 MG 100 MG le} 100 MG ProAir HFA ProAir HFA No 2{puffs QID ProAir HFA 108 (90 108 (90 _as_nee 108 (90 Base) Base) ded} Base) MCG/ACT MCG/ACT MCG/ACT ALPRAZolam ALPRAZolam No 1{table ALPRAZolam 0.25 MG 0.25 MG t} 0.25 MG dilTIAZem dilTIAZem No 1{table QD dilTIAZem HCl 120 MG HCl 120 MG t} HCl 120 MG Omeprazole Omeprazole No 1{capsu QD Omeprazole 40 MG 40 MG le} 40 MG Memantine Memantine No Memantine HCl HCl HCl Vistaril 25 Vistaril 25 No 1{capsu Vistaril MG MG le_as_n 25 MG eeded} FLUoxetine FLUoxetine No 1{capsu QD FLUoxetine HCl 20 MG HCl 20 MG le_in_t HCl 20 MG he_morn ing} CholestOff CholestOff No CholestOff 450 MG 450 MG 450 MG Ezetimibe Ezetimibe No 1{table QD Ezetimibe 10 MG 10 MG t} 10 MG Gabapentin Gabapentin No 1{capsu TID Gabapentin 100 MG 100 MG le} 100 MG ProAir HFA ProAir HFA No 2{puffs QID ProAir HFA 108 (90 108 (90 _as_nee 108 (90 Base) Base) ded} Base) MCG/ACT MCG/ACT MCG/ACT ALPRAZolam ALPRAZolam No 1{table ALPRAZolam 0.25 MG 0.25 MG t} 0.25 MG dilTIAZem dilTIAZem No 1{table QD dilTIAZem HCl 120 MG HCl 120 MG t} HCl 120 MG Omeprazole Omeprazole No 1{capsu QD Omeprazole 40 MG 40 MG le} 40 MG Memantine Memantine No Memantine HCl HCl HCl Vistaril 25 Vistaril 25 No 1{capsu Vistaril MG MG le_as_n 25 MG eeded} FLUoxetine FLUoxetine No 1{capsu QD FLUoxetine HCl 20 MG HCl 20 MG le_in_t HCl 20 MG he_morn ing} CholestOff CholestOff No CholestOff 450 MG 450 MG 450 MG Ezetimibe Ezetimibe No 1{table QD Ezetimibe 10 MG 10 MG t} 10 MG Gabapentin Gabapentin No 1{capsu TID Gabapentin 100 MG 100 MG le} 100 MG ProAir HFA ProAir HFA No 2{puffs QID ProAir HFA 108 (90 108 (90 _as_nee 108 (90 Base) Base) ded} Base) MCG/ACT MCG/ACT MCG/ACT ALPRAZolam ALPRAZolam No 1{table ALPRAZolam 0.25 MG 0.25 MG t} 0.25 MG Omeprazole Omeprazole No 1{capsu QD Omeprazole 40 MG 40 MG le} 40 MG FLUoxetine FLUoxetine No 1{capsu QD FLUoxetine HCl 20 MG HCl 20 MG le_in_t HCl 20 MG he_morn ing} Ezetimibe Ezetimibe No 1{table QD Ezetimibe 10 MG 10 MG t} 10 MG Gabapentin Gabapentin No 1{capsu TID Gabapentin 100 MG 100 MG le} 100 MG CholestOff CholestOff No CholestOff 450 MG 450 MG 450 MG ALPRAZolam ALPRAZolam No 1{table ALPRAZolam 0.25 MG 0.25 MG t} 0.25 MG ProAir HFA ProAir HFA No 2{puffs QID ProAir HFA 108 (90 108 (90 _as_nee 108 (90 Base) Base) ded} Base) MCG/ACT MCG/ACT MCG/ACT dilTIAZem dilTIAZem No 1{table QD dilTIAZem HCl 120 MG HCl 120 MG t} HCl 120 MG Memantine Memantine No Memantine HCl HCl HCl Vistaril 25 Vistaril 25 No 1{capsu Vistaril MG MG le_as_n 25 MG eeded} Omeprazole Omeprazole No 1{capsu QD Omeprazole 40 MG 40 MG le} 40 MG ProAir HFA ProAir HFA No 2{puffs QID ProAir HFA 108 (90 108 (90 _as_nee 108 (90 Base) Base) ded} Base) MCG/ACT MCG/ACT MCG/ACT Gabapentin Gabapentin No 1{capsu TID Gabapentin 100 MG 100 MG le} 100 MG FLUoxetine FLUoxetine No 1{capsu QD FLUoxetine HCl 20 MG HCl 20 MG le_in_t HCl 20 MG he_morn ing} CholestOff CholestOff No CholestOff 450 MG 450 MG 450 MG ALPRAZolam ALPRAZolam No 1{table ALPRAZolam 0.25 MG 0.25 MG t} 0.25 MG dilTIAZem dilTIAZem No 1{table QD dilTIAZem HCl 120 MG HCl 120 MG t} HCl 120 MG Ezetimibe Ezetimibe No 1{table QD Ezetimibe 10 MG 10 MG t} 10 MG Memantine Memantine No Memantine HCl HCl HCl Vistaril 25 Vistaril 25 No 1{capsu Vistaril MG MG le_as_n 25 MG eeded} Omeprazole Omeprazole No 1{capsu QD Omeprazole 40 MG 40 MG le} 40 MG ProAir HFA ProAir HFA No 2{puffs QID ProAir HFA 108 (90 108 (90 _as_nee 108 (90 Base) Base) ded} Base) MCG/ACT MCG/ACT MCG/ACT Gabapentin Gabapentin No 1{capsu TID Gabapentin 100 MG 100 MG le} 100 MG FLUoxetine FLUoxetine No 1{capsu QD FLUoxetine HCl 20 MG HCl 20 MG le_in_t HCl 20 MG he_morn ing} CholestOff CholestOff No CholestOff 450 MG 450 MG 450 MG ALPRAZolam ALPRAZolam No 1{table ALPRAZolam 0.25 MG 0.25 MG t} 0.25 MG dilTIAZem dilTIAZem No 1{table QD dilTIAZem HCl 120 MG HCl 120 MG t} HCl 120 MG Ezetimibe Ezetimibe No 1{table QD Ezetimibe 10 MG 10 MG t} 10 MG Memantine Memantine No Memantine HCl HCl HCl Vistaril 25 Vistaril 25 No 1{capsu Vistaril MG MG le_as_n 25 MG eeded} Gabapentin Gabapentin No 1{capsu TID Gabapentin 100 MG 100 MG le} 100 MG dilTIAZem dilTIAZem No 1{table QD dilTIAZem HCl 120 MG HCl 120 MG t} HCl 120 MG Vistaril 25 Vistaril 25 No 1{capsu Vistaril MG MG le_as_n 25 MG eeded} FLUoxetine FLUoxetine No 1{capsu QD FLUoxetine HCl 20 MG HCl 20 MG le_in_t HCl 20 MG he_morn ing} ALPRAZolam ALPRAZolam No 1{table ALPRAZolam 0.25 MG 0.25 MG t} 0.25 MG Ezetimibe Ezetimibe No 1{table QD Ezetimibe 10 MG 10 MG t} 10 MG Memantine Memantine No Memantine HCl HCl HCl Omeprazole Omeprazole No 1{capsu QD Omeprazole 40 MG 40 MG le} 40 MG ProAir HFA ProAir HFA No 2{puffs QID ProAir HFA 108 (90 108 (90 _as_nee 108 (90 Base) Base) ded} Base) MCG/ACT MCG/ACT MCG/ACT CholestOff CholestOff No CholestOff 450 MG 450 MG 450 MG Vistaril 25 Vistaril 25 No 1{capsu Vistaril MG MG le_as_n 25 MG eeded} ALPRAZolam ALPRAZolam No 1{table ALPRAZolam 0.25 MG 0.25 MG t} 0.25 MG CholestOff CholestOff No CholestOff 450 MG 450 MG 450 MG Gabapentin Gabapentin No 1{capsu TID Gabapentin 100 MG 100 MG le} 100 MG Omeprazole Omeprazole No 1{capsu QD Omeprazole 40 MG 40 MG le} 40 MG Memantine Memantine No Memantine HCl HCl HCl Ezetimibe Ezetimibe No 1{table QD Ezetimibe 10 MG 10 MG t} 10 MG dilTIAZem dilTIAZem No 1{table QD dilTIAZem HCl 120 MG HCl 120 MG t} HCl 120 MG FLUoxetine FLUoxetine No 1{capsu QD FLUoxetine HCl 20 MG HCl 20 MG le_in_t HCl 20 MG he_morn ing} ProAir HFA ProAir HFA No 2{puffs QID ProAir HFA 108 (90 108 (90 _as_nee 108 (90 Base) Base) ded} Base) MCG/ACT MCG/ACT MCG/ACT FLUoxetine FLUoxetine No 1{capsu QD FLUoxetine HCl 20 MG HCl 20 MG le_in_t HCl 20 MG he_morn ing} Ezetimibe Ezetimibe No 1{table QD Ezetimibe 10 MG 10 MG t} 10 MG Omeprazole Omeprazole No 1{capsu QD Omeprazole 40 MG 40 MG le} 40 MG CholestOff CholestOff No CholestOff 450 MG 450 MG 450 MG ProAir HFA ProAir HFA No 2{puffs QID ProAir HFA 108 (90 108 (90 _as_nee 108 (90 Base) Base) ded} Base) MCG/ACT MCG/ACT MCG/ACT dilTIAZem dilTIAZem No 1{table QD dilTIAZem HCl 120 MG HCl 120 MG t} HCl 120 MG Protonix Protonix No Protonix ALPRAZolam ALPRAZolam No 1{table ALPRAZolam 0.25 MG 0.25 MG t} 0.25 MG Gabapentin Gabapentin No 1{capsu TID Gabapentin 100 MG 100 MG le} 100 MG Memantine Memantine No Memantine HCl HCl HCl Vistaril 25 Vistaril 25 No 1{capsu Vistaril MG MG le_as_n 25 MG eeded} Protonix Protonix No Protonix Ezetimibe Ezetimibe No 1{table QD Ezetimibe 10 MG 10 MG t} 10 MG dilTIAZem dilTIAZem No 1{table QD dilTIAZem HCl 120 MG HCl 120 MG t} HCl 120 MG ALPRAZolam ALPRAZolam No 1{table ALPRAZolam 0.25 MG 0.25 MG t} 0.25 MG Vistaril 25 Vistaril 25 No 1{capsu Vistaril MG MG le_as_n 25 MG eeded} ProAir HFA ProAir HFA No 2{puffs QID ProAir HFA 108 (90 108 (90 _as_nee 108 (90 Base) Base) ded} Base) MCG/ACT MCG/ACT MCG/ACT Omeprazole Omeprazole No 1{capsu QD Omeprazole 40 MG 40 MG le} 40 MG FLUoxetine FLUoxetine No 1{capsu QD FLUoxetine HCl 20 MG HCl 20 MG le_in_t HCl 20 MG he_morn ing} Memantine Memantine No Memantine HCl HCl HCl CholestOff CholestOff No CholestOff 450 MG 450 MG 450 MG Gabapentin Gabapentin No 1{capsu TID Gabapentin 100 MG 100 MG le} 100 MG Gabapentin Gabapentin No 1{capsu TID Gabapentin 100 MG 100 MG le} 100 MG FLUoxetine FLUoxetine No 1{capsu QD FLUoxetine HCl 20 MG HCl 20 MG le_in_t HCl 20 MG he_morn ing} dilTIAZem dilTIAZem No 1{table QD dilTIAZem HCl 120 MG HCl 120 MG t} HCl 120 MG ALPRAZolam ALPRAZolam No 1{table ALPRAZolam 0.25 MG 0.25 MG t} 0.25 MG Vistaril 25 Vistaril 25 No 1{capsu Vistaril MG MG le_as_n 25 MG eeded} Protonix Protonix No Protonix Ezetimibe Ezetimibe No 1{table QD Ezetimibe 10 MG 10 MG t} 10 MG Memantine Memantine No Memantine HCl HCl HCl CholestOff CholestOff No CholestOff 450 MG 450 MG 450 MG ProAir HFA ProAir HFA No 2{puffs QID ProAir HFA 108 (90 108 (90 _as_nee 108 (90 Base) Base) ded} Base) MCG/ACT MCG/ACT MCG/ACT Omeprazole Omeprazole No 1{capsu QD Omeprazole 40 MG 40 MG le} 40 MG FLUoxetine FLUoxetine No 1{capsu QD FLUoxetine HCl 20 MG HCl 20 MG le_in_t HCl 20 MG he_morn ing} Ezetimibe Ezetimibe No 1{table QD Ezetimibe 10 MG 10 MG t} 10 MG dilTIAZem dilTIAZem No 1{table QD dilTIAZem HCl 120 MG HCl 120 MG t} HCl 120 MG ALPRAZolam ALPRAZolam No 1{table ALPRAZolam 0.25 MG 0.25 MG t} 0.25 MG Vistaril 25 Vistaril 25 No 1{capsu Vistaril MG MG le_as_n 25 MG eeded} Protonix Protonix No Protonix Gabapentin Gabapentin No 1{capsu TID Gabapentin 100 MG 100 MG le} 100 MG Memantine Memantine No Memantine HCl HCl HCl CholestOff CholestOff No CholestOff 450 MG 450 MG 450 MG ProAir HFA ProAir HFA No 2{puffs QID ProAir HFA 108 (90 108 (90 _as_nee 108 (90 Base) Base) ded} Base) MCG/ACT MCG/ACT MCG/ACT Omeprazole Omeprazole No 1{capsu QD Omeprazole 40 MG 40 MG le} 40 MG FLUoxetine FLUoxetine No 1{capsu QD FLUoxetine HCl 20 MG HCl 20 MG le_in_t HCl 20 MG he_morn ing} Ezetimibe Ezetimibe No 1{table QD Ezetimibe 10 MG 10 MG t} 10 MG dilTIAZem dilTIAZem No 1{table QD dilTIAZem HCl 120 MG HCl 120 MG t} HCl 120 MG ALPRAZolam ALPRAZolam No 1{table ALPRAZolam 0.25 MG 0.25 MG t} 0.25 MG Vistaril 25 Vistaril 25 No 1{capsu Vistaril MG MG le_as_n 25 MG eeded} Protonix Protonix No Protonix Gabapentin Gabapentin No 1{capsu TID Gabapentin 100 MG 100 MG le} 100 MG Memantine Memantine No Memantine HCl HCl HCl CholestOff CholestOff No CholestOff 450 MG 450 MG 450 MG ProAir HFA ProAir HFA No 2{puffs QID ProAir HFA 108 (90 108 (90 _as_nee 108 (90 Base) Base) ded} Base) MCG/ACT MCG/ACT MCG/ACT Omeprazole Omeprazole No 1{capsu QD Omeprazole 40 MG 40 MG le} 40 MG Immunizations Ordered Immunization Filled Immunization Date Status Commen ts Source Name Name [id number] 2021-02-15 Completed [facility]re[facility]re[facility] [id number] 00:00:00 [facility] angy <sup>1</sup> Hyalgan 20 mg Hyalgan 20 mg 2021-01-21 Completed [facility] - 13:59:00 [facility] Hyalgan 20 mg Hyalgan 20 mg 2021-01-21 Completed [facility] - 13:59:00 [facility] Hyalgan 20 mg Hyalgan 20 mg 2021-01-21 Completed [facility] - 13:59:00 [facility] Hyalgan 20 mg Hyalgan 20 mg 2021-01-21 Completed [facility] - 13:59:00 [facility] Hyalgan 20 mg Hyalgan 20 mg 2021-01-21 Completed [facility] - 13:59:00 [facility] Hyalgan 20 mg Hyalgan 20 mg 2021-01-21 Completed [facility] - 13:59:00 [facility] Hyalgan 20 mg Hyalgan 20 mg 2021-01-21 Completed [facility] - 13:59:00 [facility] Hyalgan 20 mg Hyalgan 20 mg 2021-01-09 Completed [facility] - 14:14:00 [facility] Hyalgan 20 mg Hyalgan 20 mg 2021-01-09 Completed [facility] - 14:14:00 [facility] Hyalgan 20 mg Hyalgan 20 mg 2021-01-09 Completed [facility] - 14:14:00 [facility] Hyalgan 20 mg Hyalgan 20 mg 2021-01-09 Completed [facility] - 14:14:00 [facility] Hyalgan 20 mg Hyalgan 20 mg 2021-01-09 Completed [facility] - 14:14:00 [facility] Hyalgan 20 mg Hyalgan 20 mg 2021-01-09 Completed [facility] - 14:14:00 [facility] Hyalgan 20 mg Hyalgan 20 mg 2021-01-09 Completed [facility] - 14:14:00 [facility] Hyalgan 20 mg Hyalgan 20 mg 2021-01-02 Completed [facility] - 15:26:00 [facility] Hyalgan 20 mg Hyalgan 20 mg 2021-01-02 Completed [facility] - 15:26:00 [facility] Hyalgan 20 mg Hyalgan 20 mg 2021-01-02 Completed [facility] - 15:26:00 [facility] Hyalgan 20 mg Hyalgan 20 mg 2021-01-02 Completed [facility] - 15:26:00 [facility] Hyalgan 20 mg Hyalgan 20 mg 2021-01-02 Completed [facility] - 15:26:00 [facility] Hyalgan 20 mg Hyalgan 20 mg 2021-01-02 Completed [facility] - 15:26:00 [facility] Hyalgan 20 mg Hyalgan 20 mg 2021-01-02 Completed [facility] 15:26:00 [facility] Bupivicaine Ellijay Bupivicaine Ellijay 2020-11-21 [facility] [facility] Kenalog 2020-11-21 [facility] (Triamcinolone) (Triamcinolone) 16:30:00 [facility] Bupivicaine Ellijay Bupivicaine Ellijay 2020-11-21 Completed [facility] - 16:30:00 [facility] Kenalog Kenalog 2020-11-21 Completed [facility] (Triamcinolone) (Triamcinolone) 16:30:00 [facility] Bupivicaine Ellijay Bupivicaine Ellijay 2020-11-21 Completed [facility] 16:30:00 [facility] Kenalog Kenalog 2020-11-21 Completed [facility] (Triamcinolone) (Triamcinolone) 16:30:00 [facility] Bupivicaine Ellijay Bupivicaine Ellijay 2020-11-21 Completed [facility] - 16:30:00 [facility] Kenalog Kenalog 2020-11-21 Completed [facility] (Triamcinolone) (Triamcinolone) 16:30:00 [facility] Bupivicaine Ellijay Bupivicaine Ellijay 2020-11-21 Completed [facility] 16:30:00 [facility] Kenalog Kenalog 2020-11-21 Completed [facility] (Triamcinolone) (Triamcinolone) 16:30:00 [facility] Bupivicaine Ellijay Bupivicaine Ellijay 2020-11-21 Completed [facility] 16:30:00 [facility] Kenalog Kenalog 2020-11-21 Completed [facility] (Triamcinolone) (Triamcinolone) 16:30:00 [facility] Bupivicaine Ellijay Bupivicaine Ellijay 2020-11-21 Completed [facility] 16:30:00 [facility] Kenalog Kenalog 2020-11-21 Completed [facility] (Triamcinolone) (Triamcinolone) 16:30:00 [facility] Depo-Medrol Depo-Medrol 2019-04-25 [facility]pleted [facility] (Methylpredn[facility]one) (Methylprednisolone) 15:02:00 [facility] 20mg 20mg [facility] LIDOCAINE HCL LIDOCAINE HCL 2019-04-25 Completed [facility] - 10MG/ML 10MG/ML 15:02:00 [facility] Depo-Medrol Depo-Medrol 2019-04-25 Completed [facility] (Methylprednisolone) (Methylprednisolone) 15:02:00 [facility] 20mg 20mg [facility] LIDOCAINE HCL LIDOCAINE HCL 2019-04-25 Completed [facility] - 10MG/ML 10MG/ML 15:02:00 [facility] Depo-Medrol Depo-Medrol 2019-04-25 Completed [facility] (Methylprednisolone) (Methylprednisolone) 15:02:00 [facility] 20mg 20mg [facility] LIDOCAINE HCL LIDOCAINE HCL 2019-04-25 Completed [facility] - 10MG/ML 10MG/ML 15:02:00 [facility] Depo-Medrol Depo-Medrol 2019-04-25 Completed [facility] (Methylprednisolone) (Methylprednisolone) 15:02:00 [facility] 20mg 20mg [facility] LIDOCAINE HCL LIDOCAINE HCL 2019-04-25 Completed [facility] - 10MG/ML 10MG/ML 15:02:00 [facility] Depo-Medrol Depo-Medrol 2019-04-25 Completed [facility] (Methylprednisolone) (Methylprednisolone) 15:02:00 [facility] 20mg 20mg [facility] LIDOCAINE HCL LIDOCAINE HCL 2019-04-25 Completed [facility] - 10MG/ML 10MG/ML 15:02:00 [facility] Depo-Medrol Depo-Medrol 2019-04-25 Completed [facility] (Methylprednisolone) (Methylprednisolone) 15:02:00 [facility] 20mg 20mg [facility] LIDOCAINE HCL LIDOCAINE HCL 2019-04-25 Completed [facility] - 10MG/ML 10MG/ML 15:02:00 [facility] Depo-Medrol Depo-Medrol 2019-04-25 Completed [facility] (Methylprednisolone) (Methylprednisolone) 15:02:00 [facility] 20mg 20mg [facility] LIDOCAINE HCL LIDOCAINE HCL 2019-04-25 Completed [facility] - 10MG/ML 10MG/ML 15:02:00 [facility] Vital Signs Vital Name Observation Time Observation Value Comments Source height 2022-06-30 15:20:00 62 [in_i] [facility] weight 2022-06-30 15:20:00 193.6 [lb_av] [facility] temperature 2022-06-30 15:20:00 97.7 [degF] [facility] bmi 2022-06-30 15:20:00 35.41 kg/m2 [facility] oximetry 2022-06-30 15:20:00 97 % [facility] respiratory rate 2022-06-30 15:20:00 17 /min Comm on [facility] blood pressure 2022-06-30 15:20:00 139 mm[Hg] Common [facility] - systolic [facility] blood pressure 2022-06-30 15:20:00 88 mm[Hg] [facility] height 2022-05-26 15:00:00 62 [in_i] Common [facility] weight 2022-05-26 15:00:00 190 [lb_av] [facility] - [facility] temperature 2022-05-26 15:00:00 98.0 [degF] [facility] bmi 2022-05-26 15:00:00 34.75 kg/m2 [facility] blood pressure 2022-05-26 15:00:00 122 mm[Hg] [facility] - systolic [facility] blood pressure 2022-05-26 15:00:00 84 mm[Hg] [facility] - diastolic [facility] height 2022-04-23 10:45:00 62 [in_i] [facility]irit [facility] weight 2022-04-23 10:45:00 193 [lb_av] [facility] temperature 2022-04-23 10:45:00 98.2 [degF] [facility] S pirit [facility] 2022-04-23 10:45:00 35.3 kg/m2 [facility] S pirit [facility] blood pressure 2022-04-23 10:45:00 142 mm[Hg] [facility] - systolic [facility] blood pressure 2022-04-23 10:45:00 84 mm[Hg] [facility] - diastolic [facility] height 2022-03-19 15:00:00 62 [in_i] [facility] weight 2022-03-19 15:00:00 193.3 [lb_av] [facility] bmi 2022-03-19 15:00:00 35.35 kg/m2 [facility] height 2022-02-10 13:30:00 62 [in_i] [facility] weight 2022-02-10 13:30:00 193.3 [lb_av] [facility] temperature 2022-02-10 13:30:00 98.3 [degF] [facility] bmi 2022-02-10 13:30:00 35.35 kg/m2 [facility] - [facility] blood pressure 2022-02-10 13:30:00 126 mm[Hg] [facility] - systolic [facility] blood pressure 2022-02-10 13:30:00 82 mm[Hg] [facility] - diastolic [facility] height 2022-01-27 15:30:00 62 [in_i] [facility]irit [facility] weight 2022-01-27 15:30:00 191 [lb_av] [facility] - [facility] bmi 2022-01-27 15:30:00 34.93 kg/m2 [facility] - [facility] blood pressure 2022-01-27 15:30:00 148 mm[Hg] [facility] - systolic [facility] blood pressure 2022-01-27 15:30:00 92 mm[Hg] [facility] - diastolic [facility] height 2022-01-14 15:40:00 62 [in_i] [facility] - [facility] weight 2022-01-14 15:40:00 191 [lb_av] [facility] temperature 2022-01-14 15:40:00 97.7 [degF] [facility]irit [facility] bmi 2022-01-14 15:40:00 34.93 kg/m2 [facility] oximetry 2022-01-14 15:40:00 97 % [facility] respiratory rate 2022-01-14 15:40:00 17 /min Comm on [facility] - [facility] blood pressure 2022-01-14 15:40:00 136 mm[Hg] [facility] - systolic [facility] blood pressure 2022-01-14 15:40:00 88 mm[Hg] [facility] - diastolic [facility] height 2022-01-08 13:30:00 62 [in_i] [facility] weight 2022-01-08 13:30:00 190 [lb_av] [facility] temperature 2022-01-08 13:30:00 97.7 [degF] [facility]irit - [facility] bmi 2022-01-08 13:30:00 34.75 kg/m2 [facility] - [facility] blood pressure 2022-01-08 13:30:00 146 mm[Hg] [facility] - systolic [facility] blood pressure 2022-01-08 13:30:00 92 mm[Hg] [facility] - diastolic [facility] height 2021-08-12 15:10:00 62 [in_i] [facility] - [facility] weight 2021-08-12 15:10:00 188.8 [lb_av] [facility] temperature 2021-08-12 15:10:00 96.8 [degF] [facility] bmi 2021-08-12 15:10:00 34.53 kg/m2 [facility] S [facility] oximetry 2021-08-12 15:10:00 95 % [facility] respiratory rate 2021-08-12 15:10:00 18 /min Comm on [facility] blood pressure 2021-08-12 15:10:00 130 mm[Hg] Common [facility] - systolic [facility] blood pressure 2021-08-12 15:10:00 88 mm[Hg] Common [facility] - diastolic [facility] height 2021-08-12 15:20:00 62 [in_i] Common [facility]irit [facility] weight 2021-08-12 15:20:00 188.8 [lb_av] Common [facility] temperature 2021-08-12 15:20:00 96.8 [degF] Common S [facility] bmi 2021-08-12 15:20:00 34.53 kg/m2 [facility] S [facility] oximetry 2021-08-12 15:20:00 95 % [facility] respiratory rate 2021-08-12 15:20:00 18 /min Comm on [facility] blood pressure 2021-08-12 15:20:00 130 mm[Hg] [facility] - systolic [facility] blood pressure 2021-08-12 15:20:00 88 mm[Hg] [facility] - diastolic [facility] height 2021-07-11 13:00:00 62 [in_i] [facility] - [facility] weight 2021-07-11 13:00:00 191.6 [lb_av] [facility] bmi 2021-07-11 13:00:00 35.04 kg/m2 [facility] - [facility] Systolic (mm Hg) 2021-07-24 19:00:00 Scott rial Jay Em Diastolic (mm Hg) 2021-07-24 19:00:00 Mem orial Jake Respitory Rate 2021-07-24 19:00:00 Memori al Jay Em Height 2021-07-24 19:00:00 152.4 cm [facility] Weight 2021-07-24 19:00:00 [facility] Em BMI Calculated 2021-07-24 19:00:00 Memori al Jay Em Systolic (mm Hg) 2021-04-24 18:51:00 Scott rial Jake Diastolic (mm Hg) 2021-04-24 18:51:00 Mem orial Jake Heart Rate 2021-04-24 18:51:00 [facility] Jay Em Respitory Rate 2021-04-24 18:51:00 Memori al Jay Em Height 2021-04-24 18:51:00 154.94 cm [facility] Em Weight 2021-04-24 18:51:00 [facility] BMI Calculated 2021-04-24 18:51:00 Memori al Jake Systolic (mm Hg) 2021-03-27 20:16:00 Scott rial Jake Diastolic (mm Hg) 2021-03-27 20:16:00 Mem orial Jake Heart Rate 2021-03-27 20:16:00 [facility] Jay Em Respitory Rate 2021-03-27 20:16:00 Memori al Jake Height 2021-03-27 20:16:00 154.94 cm [facility] Em Weight 2021-03-27 20:16:00 [facility] Jake BMI Calculated 2021-03-27 20:16:00 [place] Procedures This patient has no known procedures. Encounters Start End Encounter Admission Attending Care Care Encounter Source Date/Time Date/Time Type Type Clinicians Facility Department ID 2022-11-23 Outpatient [place], STLMLC STLC Common 11:24:00 Terence [id number] [facility] 2022-01-09 Outpatient [place], STLMLC STLMLC Common 08:45:02 Terence [facility] 2022-01-02 Outpatient [place], STLMLC STLC Common 10:57:01 Terence [facility] 2021-11-26 Outpatient [place], STLMLC STLC Common 13:11:28 Terence [id number] [facility] 2021-11-26 Outpatient [place], STLMLC STLC Common 12:57:36 Terence [id number] [facility] 2021-11-26 Outpatient [place], STLMLC STLC Common 12:57:14 Terence [id number] [facility] 2021-11-26 Outpatient [place], STLMLC STLC Common 12:30:52 Terence [id number] [facility] 2021-11-26 Outpatient [place], STLMLC STLC Common 12:25:48 Terence [id number] [facility] 2021-11-26 Outpatient [place], STLMLC STLC Common 12:25:35 Terence [id number] [facility] 2021-11-26 Outpatient [place], STLMLC STLC Common 12:18:17 Terence [facility] 2021-11-26 Outpatient [place], STLMLC STLC Common 12:17:28 Terence [id number] [facility] 2021-11-26 Outpatient [place], STLMLC STLC [id number] Common 11:58:57 Terence [id number] [facility] 2021-11-26 Outpatient [place], STLMLC STLMLC [id number] Common 11:55:14 Terence [id number] [facility] 2021-11-26 Outpatient [place], STLMLC STLMLC [id number] Common 11:34:01 Terence [id number] [facility] 2021-11-26 Outpatient [place], STLMLC STLMLC [id number] Common 11:17:23 Terence [id number] [facility] 2021-11-26 Outpatient [place], STLMLC STLMLC [id number] Common 11:14:22 Terence [id number] [facility] 2021-11-26 Outpatient [place], STLMLC STLMLC [id number] Common 10:57:55 Terence [id number] [facility] 2022-11-23 2022-11-23 (TEL) STLMLC STLMLC [id number] Co mmon 00:00:00 00:00:00 [facility] 2022-11-23 2022-11-23 (TEL) STLMLC STLMLC [id number] Co mmon 00:00:00 00:00:00 [facility] 2022-06-30 2022-06-30 OFFICE STLMLC STLMLC [id number] Co mmon 00:00:00 00:00:00 VISIT EST Spir it PT LEVEL 3 [facility] 2022-06-29 2022-06-29 (TEL) STLMLC STLMLC [id number] Co mmon 00:00:00 00:00:00 [facility] 2022-05-26 2022-05-26 OFFICE STLMLC STLMLC [id number] Co mmon 00:00:00 00:00:00 VISIT Spirit ESTAB PT - [facility]I LEVEL [address] [facility] 2022-04-23 2022-04-23 (TEL) STLMLC STLMLC [id number] Co mmon 00:00:00 00:00:00 [facility] 2022-04-23 2022-04-23 OFFICE STLMLC STLMLC [id number] Co mmon 00:00:00 00:00:00 VISIT [facility] PT [facility] LEVEL [address] [facility] 2022-04-14 2022-04-14 (TEL) STLMLC STLMLC [id number] Co mmon 00:00:00 00:00:00 [facility] 2022-04-01 2022-04-01 (TEL) STLMLC STLMLC [id number] Co mmon 00:00:00 00:00:00 [facility] 2022-03-19 2022-03-19 OL DIG E/M STLMLC STLMLC [id number] Common 00:00:00 00:00:00 SV 5-10 Spiri t MIN [facility] 2022-03-16 2022-03-16 (TEL) STLMLC STLMLC [id number] Co mmon 00:00:00 00:00:00 [facility] 2022-03-10 2022-03-10 (TEL) STLMLC STLMLC [id number] Co mmon 00:00:00 00:00:00 [facility] 2022-02-17 2022-02-17 (TEL) STLMLC STLMLC [id number] Co mmon 00:00:00 00:00:00 [facility] 2022-02-11 2022-02-11 (TEL) STLMLC STLMLC [id number] Co mmon 00:00:00 00:00:00 [facility] 2022-02-10 2022-02-10 (IN/ASP) STLMLC STLMLC [id number] C ommon 00:00:00 00:00:00 INJ ASP [facility] 2022-02-06 2022-02-06 (TEL) STLMLC STLMLC [id number] Co mmon 00:00:00 00:00:00 [facility] 2022-01-27 2022-01-27 (IN/ASP) STLMLC STLMLC [id number] C ommon 00:00:00 00:00:00 INJ ASP [facility] 2022-01-15 2022-01-15 (TEL) STLMLC STLMLC [id number] Co mmon 00:00:00 00:00:00 [facility] 2022-01-14 2022-01-14 OFFICE STLMLC STLMLC [id number] Co mmon 00:00:00 00:00:00 VISIT EST Spir it PT LEVEL 3 - [facility] 2022-01-08 2022-01-08 OFFICE STLMLC STLMLC [id number] Co mmon 00:00:00 00:00:00 VISIT [facility] ESTAB PT - [facility] LEVEL [address] [facility] 2021-11-17 2021-11-17 (TEL) STLMLC STLMLC [id number] Co mmon 00:00:00 00:00:00 [facility] 2021-11-04 2021-11-04 Ambulatory nullFlavo MNA [id number] Memoria 20:00:00 20:00:00 Pre-Reg r Neurology 05 l Krysta Joseph 2021-11-04 2021-11-04 Outpatient MHIE MHIE [id number] Memoria 14:00:00 14:00:00 05 prema Joseph 2021-11-04 2021-11-04 [id number] 14:00:00 14:00:00 Perez Russ Minesh 2021-10-23 2021-10-23 OFFICE STLMLC STLMLC [id number] Co mmon 00:00:00 00:00:00 VISIT Spirit ESTAB PT - [facility] LEVEL [address] [facility] 2021-10-22 2021-10-22 (TEL) STLMLC STLMLC [id number] Co mmon 00:00:00 00:00:00 [facility] 2021-09-23 2021-09-23 Ambulatory nullFlavo MNA [id number] Memoria 19:00:00 19:00:00 Pre-Reg r Neurology 04 l Krysta Joseph 2021-09-23 2021-09-23 Outpatient MHIE MHIE [id number] Memoria 13:00:00 13:00:00 04 prema Joseph 2021-09-23 2021-09-23 [id number] 13:00:00 13:00:00 Perez 04 Minesh 2021-08-12 2021-08-12 OFFICE STLMLC STLMLC [id number] Co mmon 00:00:00 00:00:00 VISIT Spirit ESTAB PT - [facility] LEVEL [address] [facility] 2021-08-12 2021-08-12 SUB ANNUAL STLMLC STLMLC [id number] Common 00:00:00 00:00:00 MCR [facility] WELLNESS - [facility] VISIT [facility] 2021-07-30 2021-07-30 (TEL) STLMLC STLMLC [id number] Co mmon 00:00:00 00:00:00 [facility] 2021-07-24 2021-07-25 Outpatient nullFlavo MNA [id number] Memoria 18:45:00 04:59:59 r Neurology 03 l [place] 2021-07-24 2021-07-24 Outpatient OSCAR Murray SAMMYSCHER [id number] 13:45:00 23:59:59 Perez 03 Minesh 2021-07-24 2021-07-24 Outpatient MHIE MHIE [id number] Memoria 13:45:00 13:45:00 03 l Jake 2021-07-17 2021-07-17 (TEL) STLMLC STLMLC [id number] Co mmon 00:00:00 00:00:00 [facility] 2021-07-11 2021-07-11 OFFICE STLMLC STLMLC [id number] Co mmon 00:00:00 00:00:00 VISIT EST Spir it PT LEVEL 3 - [facility] 2021-07-10 2021-07-10 OFFICE STLMLC STLMLC [id number] Co mmon 00:00:00 00:00:00 VISIT Spirit ESTAB PT - [facility] LEVEL [address] [facility] 2021-07-10 2021-07-10 (TEL) STLMLC STLMLC [id number] Co mmon 00:00:00 00:00:00 [facility] 2021-04-24 2021-04-25 Outpatient nullFlavo MNA [id number] Memoria 18:45:00 04:59:59 r Neurology 02 prema Joseph 2021-04-24 2021-04-24 Outpatient ELEAZAR MurraySCHER MISCHER [id number] 13:45:00 23:59:59 Perez 02 Minesh 2021-04-24 2021-04-24 Outpatient MHIE MHIE [id number] Memoria 13:45:00 13:45:00 02 prema Joseph 2021-04-08 2021-04-08 Outpatient STLMLC STLMLC [id number] Common 00:00:00 00:00:00 [facility] 2021-04-02 2021-04-03 Outpatient nullFlavo MNA [id number] Memoria 18:00:00 04:59:59 r Neurology 01 prema Joseph 2021-04-02 2021-04-02 Outpatient SCOOTER MurrayMISCHER MISCHER [id number] 13:00:00 23:59:59 Perez 01 Minesh 2021-04-02 2021-04-02 Outpatient MHIE MHIE [id number] Memoria 13:00:00 13:00:00 01 prema Joseph 2021-03-27 2021-03-28 Outpatient nullFlavo MNA [id number] Memoria 19:45:00 04:59:59 r Neurology 00 prema Joseph 2021-03-27 2021-03-27 Outpatient ELEAZAR MurraySCHER MISCHER [id number] 14:45:00 23:59:59 Perez 00 Minesh 2021-03-10 2021-03-10 Outpatient STLMLC STLMLC [id number] Common 00:00:00 00:00:00 [facility] 2021-02-27 2021-02-27 Outpatient STLMLC STLMLC [id number] Common 00:00:00 00:00:00 [facility] 2021-02-26 2021-02-26 Outpatient STLMLC STLMLC [id number] Common 00:00:00 00:00:00 [facility] 2021-02-26 2021-02-26 Outpatient STLMLC STLMLC [id number] Common 00:00:00 00:00:00 [facility] 2021-01-29 2021-01-29 Outpatient STLMLC STLMLC [id number] Common 00:00:00 00:00:00 [facility] 2021-01-21 2021-01-21 Outpatient STLMLC STLMLC [id number] Common 00:00:00 00:00:00 [facility] 2021-01-09 2021-01-09 Outpatient STLMLC STLMLC [id number] Common 00:00:00 00:00:00 [facility] 2021-01-02 2021-01-02 Outpatient STLMLC STLMLC [id number] Common 00:00:00 00:00:00 [facility] 2020-12-12 2020-12-12 Outpatient STLMLC STLMLC [id number] Common 00:00:00 00:00:00 [facility] 2020-11-21 2020-11-21 Outpatient STLMLC STLMLC [id number] Common 00:00:00 00:00:00 [facility] 2020-11-15 2020-11-15 Outpatient STLMLC STLMLC [id number] Common 00:00:00 00:00:00 [facility] 2020-11-04 2020-11-04 Outpatient STLMLC STLMLC [id number] Common 00:00:00 00:00:00 [facility] 2020-08-27 2020-08-27 Outpatient STLMLC STLMLC [id number] Common 00:00:00 00:00:00 [facility] 2020-08-20 2020-08-20 Outpatient STLMLC STLMLC [id number] Common 00:00:00 00:00:00 [facility] 2020-06-04 2020-06-04 [facility] [id number] Common 13:00:00 13:00:00 t [facility] 2020-06-04 2020-06-04 [facility] [id number] Common 08:09:00 08:09:[address] [facility] 2020-05-22 2020-05-22 [facility] [id number] Common 10:30:00 10:30:[address] [facility] [address] [facility] 2020-05-16 2020-05-16 [facility] [id number] Common 10:45:00 10:45:[address] [facility] 2020-05-16 2020-05-16 [facility] [id number] Common 10:30:00 10:30:[address] [facility] 2020-05-13 2020-05-13 [facility] [id number] Common 10:50:00 10:50:[address] [facility] 2020-04-18 2020-04-18 [facility] [id number] Common 15:26:00 15:26:[address] [facility] 2020-02-07 2020-02-07 [facility] [id number] Common 10:30:00 10:30:00 t [facility] 2019-11-03 2019-11-03 [facility] [id number] Common 08:52:00 08:52:[address] [facility] 2019-10-18 2019-10-18 [facility] [id number] Common 15:00:00 15:00:[address] [facility] 2019-10-02 2019-10-02 [facility] [id number] Common 09:11:00 09:11:[address] [facility] 2019-07-21 2019-07-21 [facility] [id number] Common 08:46:00 08:46:[address] [facility] 2019-07-13 2019-07-13 [facility] [id number] Common 13:15:00 13:15:[address] [facility] 2019-05-10 2019-05-10 [facility] [id number] Common 14:30:00 14:30:00 t [facility] Bone [facility] Spiri t and Joint [facility] 2019-05-02 2019-05-02 [facility] [id number] Common 16:16:00 16:16:00 t [facility] Sp[facility] t and Joint [facility] 2019-04-25 2019-04-25 [facility] [id number] Common 14:30:00 14:30:00 t [facility] Bone and Spiri t and Joint [facility] - [facility] 2018-12-19 2018-12-19 [facility] [id number] Common 16:49:00 16:49:[address] [facility] 2018-11-16 2018-11-16 [facility] [id number] Common 14:13:00 14:13:[address] [facility] 2018-11-15 2018-11-15 [facility] [id number] Common 11:53:00 11:53:[address] [facility] 2018-11-15 2018-11-15 [facility] [id number] Common 09:00:00 09:00:[address] [facility] 2018-08-11 2018-08-11 [facility] [id number] Common 13:15:00 13:15:00 t [address] [facility] 2018-05-11 2018-05-11 [id number] Common 13:00:00 13:00:[address] [facility] 2018-03-14 2018-03-14 [id number] Common 14:00:00 14:00:00 t Specialty/U Sp miguel a Specialty rology - [facility] /Urology Clinic [facility] 2018-02-09 2018-02-09 [id number] Common 10:00:00 10:00:00 t Specialty/U Sp miguel a Specialty rology - [facility] /Urology Clinic [facility] 2018-02-03 2018-02-03 [facility] [id number] Common 10:30:00 10:30:[address] [facility] Results Test Description Test Time Test Comments Results Result Comments Source Lumbar Spine 3 Views Lumbar Spine 3 Views
[2022-12-05 11:07] LABS: Absolute Lymphocytes (CBC) 2.2 K/uL (0.7-4.9); Hematocrit 43.8 % (36.0-45.0); Lymphocytes % 34.6 % (15.3-44.8); MPV 9.2 fL (7.6-11.3); RBC Red Blood Cell Count 4.76 M/uL (3.86-4.86)
[2022-12-05 11:35] LABS: Albumin 3.5 g/dL (3.4-5.0); Bilirubin Total 0.4 mg/dL (0.2-1.0); Potassium 4.1 mmol/L (3.5-5.1); Protein, Total 7.1 g/dL (6.4-8.2); Troponin High Sensitivity 5.3 pg/mL (<58.9)
--- NOTE | 2022-12-05 12:11 | RAD REPORT ---
EXAM DESCRIPTION: CT - Chest Abdomen Pelvis W Cont - 12/05/2022 11:53 am CLINICAL HISTORY: Chest and abdominal pain COMPARISON: none TECHNIQUE: Computed axial tomography of the chest, abdomen and pelvis was obtained. 100 cc Isovue-30 0 was administered intravenously. Oral contrast was not requested. This limits evaluation of bowel. All CT scans are performed using dose optimization technique as appropriate and may include automated exposure control or mA/KV adjustment according to patient size. FINDINGS: Minimal chronic lung opacities. No mediastinal or hilar lymphadenopathy. No pleural effusion. No pericardial effusion. Cholecystectomy. Liver, spleen, pancreas and adrenals are unremarkable. Extrarenal pelves. No renal mass. Small to moderate bilateral inguinal hernias contain fat. Hysterectomy. No adnexal mass Small umbilical hernia. No evidence of diverticulitis IMPRESSION: No acute abnormality is displayed
--- NOTE | 2022-12-05 12:50 | EDPHYS ---
Physician Documentation [facility] Name: Bessie Shepherd Age: 72 yrs Sex: Female : 1950 Arrival Date: 12/05/2022 Time: 10:14 Bed 5 Private MD: ED Physician Maury Michaels HPI: 12/05 11:15 This 72 yrs old Female presents to ER via Ambulatory with complaints of rib pain. rn 11:15 The patient presents with abdominal pain. rn 11:15 Onset: The symptoms/episode began/occurred 6 day(s) ago. The symptoms radiate to rn Associated signs and symptoms: Pertinent negatives: chest pain, constipation, diarrhea, dysuria, fever, shortness of breath. The symptoms are described as achy, burning, crampy. Modifying factors: The symptoms are alleviated by nothing, the symptoms are aggravated by nothing. Severity of pain: At its worst the pain was mild in the emergency department the pain is unchanged. The patient has experienced a previous episode. The patient has been recently seen by a physician:. Pt reports upper abd pain, bilateral, wraps around body, no fever or trauma, began while trying to get out of bed and heard a pop. Seen by Dr. Garcia and told might be a rib or nerve problem. No vomiting/diarrhea. . Historical: - Allergies: 10:24 Codeine; iw 10:24 NSAIDS; iw 10:24 PENICILLINS; iw 10:24 Sulfa (Sulfonamide Antibiotics); iw - PMHx: 10:24 Asthma; iw 10:28 Hypertensive disorder; vertigo; Fibromyalgia; iw - PSHx: 10:28 hysterectomy; Cholecystectomy; Appendectomy; Exploratory laparotomy; iw - Immunization history:: Adult Immunizations up to date. - Social history:: Smoking status: Patient denies any tobacco usage or history of. - Family history:: not pertinent. - Hospitalizations: : No recent hospitalization is reported. ROS: 11:15 Constitutional: Negative for fever, chills, and weight loss, Cardiovascular: Negative rn for chest pain, palpitations, and edema, Respiratory: Negative for shortness of breath, cough Abdomen/GI: Negative for nausea, vomiting, diarrhea, and constipation, MS/Extremity: Negative for injury and deformity, Skin: Negative for injury, rash, and discoloration, Neuro: Negative for headache, weakness, numbness, tingling, and seizure. Exam: 11:13 ECG was reviewed by the Attending Physician. rn 11:15 Constitutional: This is a well developed, well nourished patient who is awake, alert, rn and in no acute distress. Head/Face: Normocephalic, atraumatic. Cardiovascular: Regular rate and rhythm. No pulse deficits. Respiratory: No increased work of breathing, no retractions or nasal flaring. Abdomen/GI: Soft, non-tender Vital Signs: 10:26 BP 141 / 97; Pulse 100; Resp 16; Temp 97.9; Pulse Ox 100% on R/A; iw 10:44 BP 141 / 86; Pulse 87; Resp 15; ll1 12:08 BP 130 / 79; Pulse 83; Pulse Ox 95% ; ll1 13:04 BP 140 / 84; Pulse 80; Resp 19; Pulse Ox 96% ; bp MDM: 10:15 Patient medically screened. rn 12:47 Differential diagnosis: bowel obstruction, diverticulitis, gastritis, gastroesophageal rn reflux disease, non-specific abd pain, Peptic Ulcer Disease, Perf. Duodenal Ulcer, Perf. Gastric Ulcer, Ureterolithiasis, radiculopathy, herniated disc, muscle spasm. Data reviewed: vital signs, nurses notes. 12:48 Counseling: I had a detailed discussion with the patient and/or guardian regarding: the rn historical points, exam findings, and any diagnostic results supporting the discharge/admit diagnosis, lab results, radiology results, the need for outpatient follow up, to return to the emergency department if symptoms worsen or persist or if there are any questions or concerns that arise at home. Response to treatment: the patient's symptoms have mildly improved after treatment, and as a result, I will discharge patient. Special discussion: I discussed with the patient/guardian in detail that at this point there is no indication for admission to the hospital. It is understood, however, that if the symptoms persist or worsen the patient needs to return immediately for re-evaluation. Based on the history and exam findings, there is no indication for further emergent testing or inpatient evaluation. I discussed with the patient/guardian the need to see the primary care provider for further evaluation of the symptoms. ED course: No acute findings in CT chest/abdomen/pelvis, normal bloodwork, stable vitals, could be radiculopathy given tingling and burning that wraps from back and has hx of thoracic disc problems. Will dc home with pcp and spine f/u. . 12/05 10:25 Order name: CBC with Diff; Complete Time: 12:00 rn 12/05 10:25 Order name: CMP; Complete Time: 12:00 rn 12/05 10:25 Order name: Lipase; Complete Time: 12:00 rn 12/05 10:25 Order name: CT Chest, Abdomen, Pelvis - W/Contrast; Complete Time: 12:24 rn 12/05 10:25 Order name: Troponin High Sensitivity; Complete Time: 12:00 rn 12/05 10:25 Order name: IV Saline Lock; Complete Time: 10: rn 12/05 10:25 Order name: Labs collected and sent; Complete Time: rn 12/05 10:25 Order name: EKG; Complete Time: 10: rn 12/05 10:25 Order name: EKG - Nurse/Tech; Complete Time: 10:56 rn EC:13 Rate is 78 beats/min. Rhythm is regular. QRS [place] is Normal. [place] interval is normal. QRS rn interval is normal. QT interval is normal. No Q waves. T waves are Normal. No ST changes noted. Clinical impression: Normal ECG. Interpreted by me. Reviewed by me. Administered Medications: 13:00 Drug: Decadron - Dexamethasone 10 mg Route: IVP; Site: right antecubital; bp 13:09 Follow up: Response: No adverse reaction ll1 Disposition Summary: 12/05/22 12:49 Discharge Ordered Location: Home rn Problem: an ongoing problem rn Symptoms: have improved rn Condition: Stable rn Diagnosis - Radiculopathy, thoracolumbar region rn - Abdominal pain, unspecified rn Followup: rn - With: Private Physician - When: As needed - Reason: Recheck today's complaints, Re-evaluation by your physician Discharge Instructions: - Discharge Summary Sheet rn - Abdominal Pain, Adult rn - Neuropathic Pain rn Forms: - Medication Reconciliation Form rn - Thank You Letter rn - Antibiotic cardiac rn - Prescription Opioid Use rn Prescriptions: - Medrol (Gagan) 4 mg Oral Tablets, Dose Pack - take 1 tablet by ORAL route as directed - follow package instructions; 1 rn packet; Refills: 0, Product Selection Permitted Signatures: Dispatcher [employer] Deysi Ramos RN Maury Fernando MD MD rn Peltier, Brian, RN RN Anastasia Fierro, RN RN ll1 Corrections: (The following items were deleted from the chart) 10:30 10:28 PSHx: ex lap; erin khan
--- NOTE | 2022-12-05 12:50 | ER ---
Nurse's Notes [facility] Name: Bessie Shepherd Age: 72 yrs Sex: Female : 1950 Arrival Date: 12/05/2022 Time: 10:14 Bed 5 Private MD: Diagnosis: Radiculopathy, thoracolumbar region;Abdominal pain, unspecified Presentation: 12/05 10:22 Chief complaint: Chief complaint: Patient states: on Wednesday i felt chest pain and felt iw something pop and since then i feel right sided rib pain now radiating across entire rib cage, feels like something is pulled. 10:24 Coronavirus screen: At this time, the client does not indicate any symptoms associated iw with coronavirus-19. Ebola Screen: Patient negative for fever greater than or equal to 101.5 degrees Fahrenheit, and additional compatible Ebola Virus Disease symptoms Patient denies exposure to infectious person. Patient denies travel to an Ebola-affected area in the 21 days before illness onset. No symptoms or risks identified at this time. Initial Sepsis Screen: Does the patient meet any 2 criteria? No. Patient's initial sepsis screen is negative. Does the patient have a suspected source of infection? No. Patient's initial sepsis screen is negative. Risk Assessment: Do you want to hurt yourself or someone else? Patient reports no desire to harm self or others. 10:24 Method Of Arrival: Ambulatory iw 10:26 Onset of symptoms was December 01, 2022. iw 10:26 Acuity: ERIK 3 iw Historical: - Allergies: 10:24 Codeine; iw 10:24 NSAIDS; iw 10:24 PENICILLINS; iw 10:24 Sulfa (Sulfonamide Antibiotics); iw - PMHx: 10:24 Asthma; iw 10:28 Hypertensive disorder; vertigo; Fibromyalgia; iw - PSHx: 10:28 hysterectomy; Cholecystectomy; Appendectomy; Exploratory laparotomy; iw - Immunization history:: Adult Immunizations up to date. - Social history:: Smoking status: Patient denies any tobacco usage or history of. - Family history:: not pertinent. - Hospitalizations: : No recent hospitalization is reported. Screenin:[address] [facility] ED Fall Risk Assessment (Adult) Score/Fall Risk Level 0 - 2 = Low Risk ll1 Oriented to surroundings, Maintained a safe environment, Educated pt \T\ family on fall prevention, incl call for assistance when getting out of bed, Hourly rounding (assess needs \T\ fall precautionary measures) done. Abuse screen: Denies threats or abuse. Nutritional screening: No deficits noted. Tuberculosis screening: No symptoms or risk factors identified. Assessment: 10:35 General: Appears in no apparent distress. Behavior is calm, cooperative, appropriate ll1 for age. Pain: Complains of pain in R rib cage area Quality of pain is described as aching. Neuro: No deficits noted. Cardiovascular: Reports chest pain. Respiratory: Reports pain with movement. 11:28 Reassessment: Patient appears in no apparent distress at this time. No changes from ll1 previously documented assessment. gait steady to restroom. 12:13 Reassessment: Patient appears in no apparent distress at this time. No changes from ll1 previously documented assessment. Patient and/or family updated on plan of care and expected duration. Pain level reassessed. Patient is alert, oriented x 3, equal unlabored respirations, skin warm/dry/pink. 13:04 Reassessment: PT DC HOME AMBULATORY. bp Vital Signs: 10:26 BP 141 / 97; Pulse 100; Resp 16; Temp 97.9; Pulse Ox 100% on R/A; iw 10:44 BP 141 / 86; Pulse 87; Resp 15; ll1 12:08 BP 130 / 79; Pulse 83; Pulse Ox 95% ; ll1 13:04 BP 140 / 84; Pulse 80; Resp 19; Pulse Ox 96% ; bp ED Course: 10:14 Patient arrived in ED. as 10:15 Maury Michaels MD is Attending Physician. rn 10:27 Triage completed. iw 10:28 Arm band placed on. iw 10:32 Anastasia Mccarty, VANESSA is Primary Nurse. ll1 10:35 Inserted saline lock: 22 gauge in right forearm, using aseptic technique. Blood ll1 collected. 10:59 Patient has correct armband on for positive identification. Bed in low position. Call ll1 light in reach. Client placed on continuous cardiac and pulse oximetry monitoring. NIBP monitoring applied. 11:55 CT Chest, Abdomen, Pelvis - W/Contrast In Process Unspecified. EDMS 13:04 No provider procedures requiring assistance completed. IV discontinued, intact, bp bleeding controlled, No redness/swelling at site. Pressure dressing applied. Administered Medications: 13:00 Drug: Decadron - Dexamethasone 10 mg Route: IVP; Site: right antecubital; bp 13:09 Follow up: Response: No adverse reaction ll1 Medication: 10:59 VIS not applicable for this client. ll1 Outcome: 12:49 Discharge ordered by . rn 13:04 Discharged to home ambulatory. bp 13:04 Condition: stable 13:04 Discharge instructions given to patient, Instructed on discharge instructions, follow up and referral plans. medication usage, Demonstrated understanding of instructions, follow-up care, medications, Prescriptions given X 1. 13:10 Patient left the ED. ll1 Signatures: Dispatcher [employer] EDMS Elke Miguel Irene, RN RN iw Maury Michaels MD MD rn Peltier, Brian, RN RN bp Lewis, Lynsay, RN RN ll1 Corrections: (The following items were deleted from the chart) 10:26 10:22 Chief complaint: iw iw 10:27 10:22 Chief complaint: Patient states: right sided rib pain now radiating across entire iw rib cage, feels like something is pulled Chief complaint: Patient states: right sided rib pain now radiating across entire rib cage, feels like something is pulled iw 10:28 10:22 Chief complaint: Patient states: on Wednesday i felt chest pain and felt something iw pop an sine then i feel right sided rib pain now radiating across entire rib cage, feels like something is pulled Chief complaint: Patient states: on Wednesday i felt chest pain and felt something pop an sine then i feel right sided rib pain now radiating across entire rib cage, feels like something is pulled iw 10:30 10:28 PSHx: ex lap; iw iw
[2022-12-05] MEDS ORDERED: dexAMETHasone 10 MG/ML VIAL ONE ×2 (12:52→13:03)
[2022-12-05 13:26] VITALS: TEMP 97.9
[2022-12-05 13:38] VITALS: BP 140/84; O2SAT 96
== END 2022-12-05 13:10 | disposition home or self-care (01) ==
LOC: ER 10:11
DX: M54.15 Radiculopathy, thoracolumbar region (principal); I10 Essential (primary) hypertension; Z88.0 Allergy status to penicillin; Z88.2 Allergy status to sulfonamides; Z88.5 Allergy status to narcotic agent; Z88.6 Allergy status to analgesic agent
CPT/HCPCS: 85025; 36415; 84484; 83690; 80053; 71260; 74177; Q9967; J1100 ×2; 93005; 96374; 99284

== ENCOUNTER 2024-10-20 15:04 | Emergency (ER) | payer OTHER, SELFPAY ==
--- NOTE | 2024-10-20 15:39 | ER ---
Nurse's Notes [facility] Name: Bessie Shepherd Age: 74 yrs Sex: Female : 1950 Arrival Date: 10/20/2024 Time: 15:04 Bed 12 Private MD: Diagnosis: Cellulitis, insect bite Presentation: 10/20 15:15 Chief complaint: Patient states: abscess to RLQ of abdomen. pt noted to have redness. cm10 pt states that the area itches. Coronavirus screen: Client denies travel out of the [place] in the last 14 days. Ebola Screen: Patient denies travel to an Ebola-affected area in the 21 days before illness onset. No symptoms or risks identified at this time. Initial Sepsis Screen: Does the patient meet any 2 criteria? No. Patient's initial sepsis screen is negative. Does the patient have a suspected source of infection? No. Patient's initial sepsis screen is negative. Risk Assessment: Do you want to hurt yourself or someone else? Patient reports no desire to harm self or others. Onset of symptoms was October 20, 2024. 15:15 Method Of Arrival: Ambulatory cm10 15:15 Acuity: ERIK 4 cm10 Triage Assessment: 15:17 General: Appears in no apparent distress. comfortable, Behavior is calm, cooperative. cm10 Pain: Denies pain. Neuro: No deficits noted. Level of Consciousness is awake, alert, obeys commands, Oriented to person, place, time, situation, Appropriate for age. Respiratory: No deficits noted. Airway is patent Respiratory effort is even, unlabored, Respiratory pattern is regular, symmetrical. Historical: - Allergies: 15:16 Codeine; cm10 15:16 NSAIDS; cm10 15:16 PENICILLINS; cm10 15:16 Sulfa (Sulfonamide Antibiotics); cm10 15:16 Latex, Natural Rubber; cm10 - PMHx: 15:16 Asthma; Fibromyalgia; Hypertensive disorder; Vertigo; cm10 - PSHx: 15:16 Appendectomy; Cholecystectomy; Exploratory laparotomy; hysterectomy; cm10 - Immunization history:: Adult Immunizations up to date. - Infectious Disease History:: Denies. - Social history:: Smoking status: Patient denies any tobacco usage or history of. Screenin:27 [facility] ED Fall Risk Assessment (Adult) History of falling in the last 3 months, hb including since admission No falls in past 3 months (0 pts) Confusion or Disorientation No (0 pts) Intoxicated or Sedated No (0 pts) Impaired Gait No (0 pts) Mobility Assist Device Used No (0 pt) Altered Elimination No (0 pt) Score/Fall Risk Level 0 - 2 = Low Risk Oriented to surroundings, Maintained a safe environment, Educated pt \T\ family on fall prevention, incl call for assistance when getting out of bed. Abuse screen: Denies threats or abuse. Denies injuries from another. Nutritional screening: No deficits noted. Tuberculosis screening: No symptoms or risk factors identified. Assessment: 15:49 Reassessment: Patient appears in no apparent distress at this time. Patient and/or hb family updated on plan of care and expected duration. Pain level reassessed. Patient is alert, oriented x 3, equal unlabored respirations, skin warm/dry/pink. Vital Signs: 15:15 BP 144 / 89; Pulse 88; Resp 18; Temp 98.2(O); Pulse Ox 97% on R/A; Weight 85.73 kg; cm10 Height 5 ft. 2 in. ; Pain 0/10; 15:15 Body Mass Index 34.57 (85.73 kg, 157.48 cm) cm10 15:15 Pain Scale: Adult cm10 ED Course: 15:09 Patient arrived in ED. ra3 15:11 Tio Alston MD is Attending Physician. sp3 15:16 Triage completed. cm10 15:17 Arm band placed on right wrist. Patient placed in an exam room, on a stretcher. cm10 15:27 Virginia Bryant, RN is Primary Nurse. hb 15:27 Patient has correct armband on for positive identification. Provided Education on: .. hb 15:27 No provider procedures requiring assistance completed. Patient did not have IV access hb during this emergency room visit. Administered Medications: 15:50 Drug: Clindamycin IM 600 mg IM once {Note: given IV in right forearm.} Route: IM; Site: [facility] Other; 16:20 Follow up: Response: No adverse reaction cm10 Medication: 15:49 VIS not applicable for this client. hb Outcome: 15:38 Discharge ordered by . sp3 15:49 Discharged to home ambulatory, hb 15:49 Condition: stable 15:49 Discharge instructions given to patient, Instructed on discharge instructions, follow up and referral plans. medication usage, Demonstrated understanding of instructions, follow-up care, medications, Prescriptions given X 2, 16:20 Patient left the ED. cm10 Signatures: Virginia Bryant, VANESSA RN Tio Alston MD MD sp3 Lani Miguel RN RN cm10 Betina Rodriguez 3
--- NOTE | 2024-10-20 15:39 | EDPHYS ---
Physician Documentation [facility] Name: Bessie Shepherd Age: 74 yrs Sex: Female : 1950 Arrival Date: 10/20/2024 Time: 15:04 Bed 12 Private MD: ED Physician Tio Alston HPI: 10/20 15:31 This 74 yrs old Female presents to ER via Ambulatory with complaints of insect bite and sp3 redness. 15:31 74-year-old female with history of fibromyalgia, hypertension, vertigo now presents to 3 the ED with chief complaint insect bite to the right inguinal area/superior thigh. Patient also has a second area on the inner thigh. Symptoms were going on for 2 to 3 days and she states that the redness is getting worse. She denies any other symptoms including swollen lymph nodes, fever, abdominal pain, chest pain, shortness of breath, other rash, bleeding, or any other signs or symptoms on ROS at this time.. Historical: - Allergies: 15:16 Codeine; cm10 15:16 NSAIDS; cm10 15:16 PENICILLINS; cm10 15:16 Sulfa (Sulfonamide Antibiotics); cm10 15:16 Latex, Natural Rubber; cm10 - PMHx: 15:16 Asthma; Fibromyalgia; Hypertensive disorder; Vertigo; cm10 - PSHx: 15:16 Appendectomy; Cholecystectomy; Exploratory laparotomy; hysterectomy; cm10 - Immunization history:: Adult Immunizations up to date. - Infectious Disease History:: Denies. - Social history:: Smoking status: Patient denies any tobacco usage or history of. ROS: 15:37 Constitutional: Negative for fever, chills, and weight loss, Eyes: Negative for injury, sp3 pain, redness, and discharge, ENT: Negative for injury, pain, and discharge, Neck: Negative for injury, pain, and swelling, Cardiovascular: Negative for chest pain, palpitations, and edema, Respiratory: Negative for shortness of breath, cough, wheezing, and pleuritic chest pain, Abdomen/GI: Negative for abdominal pain, nausea, vomiting, diarrhea, and constipation, Back: Negative for injury and pain, MS/Extremity: Negative for injury and deformity, Neuro: Negative for headache, weakness, numbness, tingling, and seizure, Psych: Negative for depression, anxiety, suicide ideation, homicidal ideation, and hallucinations, Allergy/Immunology: Negative for hives, rash, and allergies, Endocrine: Negative for neck swelling, polydipsia, polyuria, polyphagia, and marked weight changes, 15:37 All other systems are negative, Exam: 15:37 Constitutional: This is a well developed, well nourished patient who is awake, alert, sp3 and in no acute distress. Head/Face: Normocephalic, atraumatic. Eyes: Pupils equal round and reactive to light, extra-ocular motions intact. Lids and lashes normal. Conjunctiva and sclera are non-icteric and not injected. Cornea within normal limits. Periorbital areas with no swelling, redness, or edema. Neck: Trachea midline, no thyromegaly or masses palpated, and no cervical lymphadenopathy. Supple, full range of motion without nuchal rigidity, or vertebral point tenderness. No Meningismus. Chest/axilla: Normal chest wall appearance and motion. Nontender with no deformity. No lesions are appreciated. Cardiovascular: Regular rate and rhythm with a normal S1 and S2. No gallops, murmurs, or rubs. Normal PMI, no JVD. No pulse deficits. Respiratory: Lungs have equal breath sounds bilaterally, clear to auscultation and percussion. No rales, rhonchi or wheezes noted. No increased work of breathing, no retractions or nasal flaring. Abdomen/GI: Soft, non-tender, with normal bowel sounds. No distension or tympany. No guarding or rebound. No evidence of tenderness throughout. Back: No spinal tenderness. No costovertebral tenderness. Full range of motion. Neuro: Awake and alert, GCS 15, oriented to person, place, time, and situation. Cranial nerves II-XII grossly intact. Motor strength 5/5 in all extremities. Sensory grossly intact. Cerebellar exam normal. Normal gait. Psych: Awake, alert, with orientation to person, place and time. Behavior, mood, and affect are within normal limits. 15:37 Skin: 2 areas that appear to be consistent with insect bites without abscess. Cellulitis surrounding is present. Vital signs are normal.. Vital Signs: 15:15 BP 144 / 89; Pulse 88; Resp 18; Temp 98.2(O); Pulse Ox 97% on R/A; Weight 85.73 kg; cm10 Height 5 ft. 2 in. ; Pain 0/10; 15:15 Body Mass Index 34.57 (85.73 kg, 157.48 cm) cm10 15:15 Pain Scale: Adult cm10 MDM: 15:19 Medical Screening Exam initiated sp3 15:38 Data reviewed: vital signs, nurses notes. ED course: Given patient's allergy profile, sp3 we will treat with clindamycin with 1 dose given IM in the ED with clindamycin p.o. and topical mupirocin for home.. Administered Medications: 15:50 Drug: Clindamycin IM 600 mg IM once {Note: given IV in right forearm.} Route: IM; Site: cm10 Other; 16:20 Follow up: Response: No adverse reaction cm10 Disposition Summary: 10/20/24 15:38 Discharge Ordered Notes: Location: Home sp3 Condition: Stable sp3 Diagnosis - Cellulitis, insect bite sp3 Followup: sp3 - With: Private Physician - When: Upon discharge from the Emergency Department - Reason: Continuance of care Discharge Instructions: - Discharge Summary Sheet sp3 - Insect Bite, Adult sp3 - Cellulitis, Adult sp3 Forms: - Medication Reconciliation Form sp3 - Antibiotic Education sp3 - Prescription Opioid Use sp3 - Patient Portal Instructions sp3 - Leadership Thank You Letter sp3 Prescriptions: - mupirocin 2 % Topical ointment - apply 1 application TOPICAL route 4 times per day Dispense 2 tubes; 2 Each; sp3 Refills: 0, Product Selection Permitted - Clindamycin HCl 300 mg Oral Capsule - take 1 capsule ORAL route every 6 hours for 10 days; 40 capsule; Refills: 0, sp3 Product Selection Permitted Signatures: Virginia Bryant, RN RN Tio Alston MD MD sp3 Lani Miguel RN RN cm10
[2024-10-20] MEDS ORDERED: CLINDAMYCIN 600MG/D5W 50 ML IV ONE (15:45)
[2024-10-20 16:25] VITALS: BP 144/89; TEMP 98.2; O2SAT 97
== END 2024-10-20 16:20 | disposition home or self-care (01) ==
LOC: ER 15:04
DX: S70.361A Insect bite (nonvenomous), right thigh, initial encounter (principal); L03.115 Cellulitis of right lower limb; I10 Essential (primary) hypertension; M79.7 Fibromyalgia; J45.909 Unspecified asthma, uncomplicated; R42 Dizziness and giddiness; Z88.5 Allergy status to narcotic agent; Z88.0 Allergy status to penicillin; Z88.2 Allergy status to sulfonamides; Z91.048 Other nonmedicinal substance allergy status
CPT/HCPCS: 96372; 99284

== ENCOUNTER 2025-02-04 10:01 | Emergency (ER) | payer OTHER ==
--- OUTSIDE RECORDS SUMMARY | 2025-02-04 10:07 | XMS REPORT | Continuity of Care Document ---
Author Name Unknown Address [address] [place] [address] [facility] Address [address] [place] [address] Care Team Providers Care Residential Construction Instructor Name Role Phone Pcp, Patient Does Not Have A Primary Care Physic kathy Leidy Crenshaw Attending Clinician Unavail able Terence Alston Attending Clinician Unavailable Doctor Unassigned, [place] Attending Clinician U navailable LYNN BOLTON Attending Clinician Unavailab Lynn Kim Attending Clinician [phone] Radiology Attending Clinician Unavailable RADIOLOGY Attending Clinician Unavailable Pob, [facility] Attending Clinician UnavailKandice Butcher MD Attending Clinician [phone] KANDICE REED Attending Clinician UnavailAngélica Thompson MD Attending Clinician ANGÉLICA MAK Attending Clinician Unavailable David Fong MD Attending Clinician Scarlett Cunningham MD Attending Clinician [phone] [place] Attending Clinician Unavailable LYNN BOLTON Admitting Clinician Unavailab LEIDY Kline Admitting Clinician Unavailab FAN Berry Admitting Clinician Unavailable Payers Payer Name Policy Type Policy Number Effective Date Expirati on Date Source MEDICARE EDITH PAULINO [id number] 2003 00:00:00 [facility] MEDICARE NOVITAS MB [id number] 2003 00:00:00 [facility] MEDICARE NOVITAS MB [id number] 2003 00:00:00 [facility] MEDICARE NOVITAS MB [id number] 2003 00:00:00 [facility] MEDICARE NOVITAS MB [id number] 2003 00:00:00 [facility] MEDICARE NOVITAS MB [id number] 2003 00:00:00 [facility] MEDICARE NOVITAS MB [id number] 2003 00:00:00 [facility] Problems Condition Name Condition Details Condition Category Status Onset Date Resolution Date Last Treatment Date Treating Clinician Comments Source 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 Problem 11/06/2021 [facility] Problem Resolve d 2021-11-06 23:36:49 Memoria prema Joseph Asthma (disorder) Asthma (disorder) Active Problem 11/12/2023 [facility] Problem Active 2023-11-12 02:22:02 Barbie Joseph Ataxia (finding) Ataxia (finding) Active Problem 11/12/2023 [facility] Problem Active 2023-11-12 02:22:02 Barbie Joseph Confusiona l state (disorder) Confusiona l state (disorder) Active Problem 11/12/2023 [facility] Problem Active 2023-11-12 02:22:02 Barbie Joseph Headache (finding) Headache (finding) Active Problem 11/12/2023 [facility] Problem Active 2023-11-12 02:22:02 Barbie Joseph Heart murmur (finding) Heart murmur (finding) Active Problem 11/12/2023 [facility] Problem Active 2023-11-12 02:22:02 Barbie Joseph Hypertensi ve disorder, systemic arterial (disorder) Hypertensi ve disorder, systemic arterial (disorder) Active Problem 11/12/2023 [facility] Problem Active 2023-11-12 02:22:02 Barbie Joseph Vaccinatio n given (situation ) Vaccinatio n given (situation ) Active Problem 11/12/2023 [facility] Problem Active 2023-11-12 02:22:02 Barbie Joseph Visual disturbanc e (disorder) Visual disturbanc e (disorder) Active Problem 11/12/2023 [facility] Problem Active 2023-11-12 02:22:02 Barbie Joseph Lumbar radiculopa thy (disorder) Lumbar radiculopa thy (disorder) Active Problem 11/12/2023 [facility] Problem Active 2023-11-12 02:22:02 Barbie Joseph Paresthesi a (finding) Paresthesi a (finding) Active Problem 11/12/2023 [facility] Problem Active 2023-11-12 02:22:02 Barbie Joseph Tremor (finding) Tremor (finding) Active Problem 11/12/2023 [facility] Problem Active 2023-11-12 02:22:02 Barbie Joseph Shingles Shingles Problem [facility] Pathologic al fracture of vertebra Vertebral compressio n fracture Problem [facility] Mixed hyperlipid emia Mixed hyperlipid emia Problem [facility] Varicose veins Varicose veins Problem [facility] Obstructiv e sleep apnea Obstructiv e sleep apnea Problem [facility] Allergic rhinitis Allergic rhinitis Problem [facility] [id number] Other secondary kyphosis, thoracic region Problem [facility] [id number] Fatty liver Problem [facility] Osteoporos is Osteoporos is Problem [facility] [id number] Primary osteoarthr itis of right hand Problem [facility] [id number] NAFL (nonalcoho lic fatty liver) Problem [facility] [id number] Arthritis of right ankle Problem [facility] [id number] Mild intermitte nt asthma without complicati on Problem [facility] Fibromyalg ia Fibromyalg ia Problem [facility] [id number] Primary osteoarthr itis of left hand Problem [facility] [id number] Primary osteoarthr itis involving multiple joints Problem [facility] [id number] History of peptic ulcer Problem [facility] [id number] Recurrent major depressive disorder, in partial remission Problem [facility] [id number] Chronic pain syndrome Problem [facility] [id number] Primary localized osteoarthr osis of lower leg, unspecifie d laterality Problem [facility] [id number] Vitamin D deficiency Problem [facility] [id number] Essential hypertensi on Problem [facility] Gastroesop hageal reflux disease GERD (gastroeso phageal reflux disease) Problem [facility] [id number] Urinary incontinen ce, post-void dribbling Problem [facility] [id number] BMI 34.0-34.9, adult Problem [facility] Generalize d anxiety disorder Generalize d anxiety disorder Problem [facility] [id number] Nonrheumat ic mitral (valve) insufficie ncy Problem [facility] [id number] Dizziness Problem [facility] Fibrocysti c breast changes Fibrocysti c breast changes Problem [facility] [id number] Primary osteoarthr itis of left knee Problem [facility] Bilateral tinnitus Tinnitus, bilateral Problem [facility] Moderate major depression , single episode Current moderate episode of major depressive disorder without prior episode Problem [facility] [id number] Mixed stress and urge urinary incontinen ce Problem [facility] [id number] Primary osteoarthr itis of right knee Problem [facility] [id number] Pulmonary fibrosis Problem [facility] [id number] Diverticul osis Problem [facility] [id number] Abnormal mammogram Problem [facility] [id number] Urge incontinen ce Problem [facility] [id number] Lower urinary tract symptoms (LUTS) Problem [facility] [id number] Nephrolith iasis Problem [facility] [id number] Chronic fatigue Problem [facility] Obesity due to excess calories Other obesity due to excess calories Problem [facility] Allergies, Adverse Reactions, Alerts Allergy Name Allergy Type Status Severity Reaction(s) Onset Date Inactive Date Treating Clinician Comments Source sulfa drugs sulfa drugs Active Barbie Joseph NO KNOWN ALLERGIE S Drug Class Active [facility] NSAIDs NSAIDs Active Memoria prema Joseph dicyclom ine dicyclom ine Active Itching (finding) Barbie Joseph penicill in penicill in Active Memoria prema Joseph Bactrim Bactrim Active Memoria prema Joseph pantopra zole pantopra zole Active stomach upset [facility] Codeine Codeine Active itchy [facility] Penicill in Penicill in Active stomach ache [facility] omeprazo le omeprazo le Active diarrhea [facility] pregabal in pregabal in Active dizzy [facility] Latex Latex Active Unknown [facility] Social History Social Habit Start Date Stop Date Quantity Comments Source Sexual orientation [facility] History of Tobacco Use [facility] Sex assigned at 1950 00:00:00 1950 00:00:00 [facility] Smoking Status Start Date Stop Date Source Tobacco smoking consumption unknown [facility] Tobacco smoking status Diony Joseph Medications Ordered Medication Name Filled Medication Name Start Date Stop Date Current Medication? Ordering Clinician Indication Dosage Frequency Signature (SIG) Comments Components Source Sertraline HCl 25 MG Sertraline HCl 25 MG 2023-11 00:00: 00 No 1{table t} QD Sertraline HCl 25 MG Doxycycline Hyclate 100 MG Doxycycline Hyclate 100 MG 2023-11 00:00: 00 No 1{table t} QD Doxycyclin e Hyclate 100 MG oxyBUTYnin Chloride 5 MG oxyBUTYnin Chloride 5 MG 07-24 00:00: 00 No 1{table t} QD oxyBUTYnin Chloride 5 MG Capsaicin 0.075 % Capsaicin 0.075 % 07-21 00:00: 00 No 1{appli cation_ as_need ed} TID Capsaicin 0.075 % barium sulfate (LIQUID E-Z PAQUE) 60 % (w/v) oral suspension 340 g 12-15 19:15: 00 12-15 19:02 :00 No [id number] 340g 340 g, Oral, ONCE, 1 dose, On Wed12/15/23 at 1315, Routine [facility] sod bicarb-citr ic ac-simeth (E-Z-GAS II) 2.21-1.53 gram/4 gram packet 1 Packet 12-15 19:15: 00 12-15 19:02 :00 No [id number] 1{packe t} 1 Packet, Oral, ONCE, 1 dose, On Wed12/15/23 at 1315, Routine [facility] iopamidol (ISOVUE 370-500 mL) injection 80 mL 12-15 18:45: 00 12-15 17:46 :00 No [id number] 80mL 80 mL, Intravenou s, ONCE, 1 dose, On Wed12/15/23 at 1245, Routine [facility] DULoxetine 30 mg oral delayed release capsule 2022-11 23:40: 00 Yes 30 mg = 1 cap, PO, Daily, # 30 cap, 3 Refill(s), Pharmacy: [id number], 154.94, cm, 09/28/23 15:14:00 [employer], Height, 85, kg, 09/28/23 15:14:00 [employer], Weight Barbie Joseph DULoxetine 60 mg oral delayed release capsule 2022-11 21:53: 00 Yes 60 mg = 1 cap, PO, Daily, # 30 cap, 3 Refill(s), Pharmacy: [id number], 154.94, cm, 09/28/23 15:14:00 [employer], Height, 85, kg, 09/28/23 15:14:00 [employer], Weight Barbie Aguilarann DULoxetine 30 mg oral delayed release capsule 2022-11 0- 21:23: 00 Yes = 1 tab, PO, ONCE, 0 Refill(s) Memamy prema Joseph dicyclomine 10 mg oral capsule 2022-11 0 21:23: 00 Yes = 1 tab, PO, Q8H, 0 Refill(s) Memamy prema Joseph Symbicort 2022-11 0 21:23: 00 Yes PO, 0 Refill(s) Jamesamy prema Joseph traMADol HCl 50 MG traMADol HCl 50 MG 12-24 00:00: 00 No 1{table t_as_ne eded} QD traMADol HCl 50 MG Hyalgan Hyalgan 01-27 00:00: 00 No 20mg [facility] Memantine hydrochlori de 10 MG Oral Tablet [Namenda] 07-24 19:29: 00 Yes 10 mg = 1 tab, PO, BID, # 180 tab, 2 Refill(s), Pharmacy: [id number], 152.4, cm, 07/24/21 14:17:00 CDT, Height, 86.818, kg, 07/24/21 14:17:00 CDT, Weight Memamy lloyd Jake Namenda 10 mg oral tablet 07-24 19:29: 00 Yes 10 mg = 1 tab, PO, BID, # 180 tab, 2 Refill(s), Pharmacy: [id number], 152.4, cm, 07/24/21 14:17:00 CDT, Height, 86.818, kg, 07/24/21 14:17:00 CDT, Weight Barbie prema Joseph azithromyci n 250 mg oral tablet 07-24 19:20: 00 No TAKE 2 TABLETS BY MOUTH TODAY, THEN TAKE 1 TABLET DAILY FOR 4 DAYS Memamy prema Joseph benzonatate 100 mg oral capsule 07-24 19:20: 00 Yes 100 mg = 1 cap, PO, TID, do not crush or chew, # 30 cap, 0 Refill(s) Jamesamy Joseph Memantine hydrochlori de 5 MG Oral Tablet [Namenda] 8-03 14:30: 00 No 5 mg = 1 tab, PO, BID, # 180 tab, 2 Refill(s), Pharmacy: [id number], 154.94, cm, 04/24/21 13:51:00 CDT, Height, 87.045, kg, 04/24/21 13:51:00 CDT, Weight Jamesamy prema Jake Mupirocin 0.02 MG/MG Topical Ointment 04-24 18:59: 00 Yes 0 Refill(s) Jamesamy prema [place] Memantine hydrochlori de 5 MG Oral Tablet [Namenda] 03-27 20:57: 00 Yes 5 mg = 1 tab, PO, BID, # 60 tab, 3 Refill(s), Pharmacy: [id number], 154.94, cm, 03/27/21 15:31:00 CDT, Height, 87.727, kg, 03/27/21 15:31:00 CDT, Weight Jamesamy prema Joseph DilTIAZem (Eqv-Tiazac ) 120 mg/24 hours oral capsule, extended release 03-27 20:25: 00 Yes 120 mg = 1 cap, PO, Daily, 0 Refill(s) Jamesamy prema Joseph DilTIAZem (Eqv-Tiazac ) 120 mg/24 hours oral capsule, extended release 03-27 20:25: 00 Yes 120 mg = 1 cap, PO, Daily, 0 Refill(s) Barbie Joseph ProAir HFA 03-27 20:24: 00 Yes 1 - 2 puffs, PO, Q4H, PRN Wheezing / cough / shortness of breath, # 1 ea, 0 Refill(s) Barbie Joseph ezetimibe 10 mg oral tablet 03-27 20:24: 00 Yes TAKE 1 TABLET BY MOUTH EVERY DAY Barbie Joseph ProAir HFA 03-27 20:24: 00 Yes 1 - 2 puffs, PO, Q4H, PRN Wheezing / cough / shortness of breath, # 1 ea, 0 Refill(s) Barbie Joseph Hydroxyzine Hydrochlori de 25 MG Oral Capsule 03-27 20:23: 00 Yes TAKE 1 CAPSULE BY MOUTH EVERY 8 HOURS NEEDED FOR NAUSEA FOR 30 DAYS Barbie Joseph hydrOXYzine pamoate 25 mg oral capsule 03-27 20:23: 00 Yes TAKE 1 CAPSULE BY MOUTH EVERY 8 HOURS NEEDED FOR NAUSEA FOR 30 DAYS Barbie Joseph predniSONE 10 mg oral tablet 03-27 20:23: 00 Yes 10 mg = 1 tab, PRN, 0 Refill(s) Barbie Joseph 60 ACTUAT tiotropium 0.53650 MG/ACTUAT Metered Dose Inhaler [Spiriva] 03-27 20:22: 00 Yes 2 puffs, INHALER, Daily, # 4 gm, 0 Refill(s) Brabie Joseph Spiriva Respimat 1.25 mcg/inh inhalation aerosol 03-27 20:22: 00 Yes 2 puffs, INHALER, Daily, # 4 gm, 0 Refill(s) Barbie Joseph Hyalgan 20 mg Hyalgan 20 mg 01-21 00:00: 00 No 20mg [facility] Kenalog (Triamcinol one) Kenalog (Triamcinol one) 11-21 00:00: 00 No 40mg [facility] Bupivicaine [place] Bupivicaine [place] 11-21 00:00: 00 No 2.5mg [facility] LIDOCAINE HCL 10MG/ML LIDOCAINE HCL 10MG/ML 04-25 00:00: 00 No 10mg [facility] Depo-Medrol (Methylpred nisolone) 20mg Depo-Medrol (Methylpred nisolone) 20mg 04-25 00:00: 00 No 20mg [facility] Creon Creon No 2{puffs _as_nee ded} QID Creon dilTIAZem HCl 120 MG dilTIAZem HCl 120 MG No 1{table t} QD dilTIAZem HCl 120 MG Gabapentin 100 MG Gabapentin 100 MG No 1{capsu le} QD Gabapentin 100 MG Methocarbam ol 500 MG Methocarbam ol 500 MG No 1.5{tab lets} 6xD Methocarba mol 500 MG Albuterol Sulfate HFA 108 (90 Base) MCG/ACT Albuterol Sulfate HFA 108 (90 Base) MCG/ACT No 1{puff_ as_need ed} 6xD Albuterol Sulfate HFA 108 (90 Base) MCG/ACT Famotidine 40 MG Famotidine 40 MG No 1{table t} QD Famotidine 40 MG predniSONE 10 MG predniSONE 10 MG No 1{table t} QD predniSONE 10 MG Sucralfate 1 GM Sucralfate 1 GM No 1{table t_on_an _empty_ stomach } Sucralfate 1 GM CholestOff 450 MG CholestOff 450 MG No CholestOff 450 MG Breyna 160-4.5 MCG/ACT Breyna 160-4.5 MCG/ACT No Breyna 160-4.5 MCG/ACT Mupirocin 2 % Mupirocin 2 % No Mupirocin 2 % Clindamycin HCl 300 MG Clindamycin HCl 300 MG No Clindamyci n HCl 300 MG Immunizations Ordered Immunization Name Filled Immunization Name Date Status Comments Source Hyalgan 20 mg Hyalgan 20 mg 2021-01-21 13:59:00 Completed [facility] Hyalgan 20 mg Hyalgan 20 mg 2021-01-21 13:59:00 Completed [facility] Hyalgan 20 mg Hyalgan 20 mg 2021-01-21 13:59:00 Completed [facility] Hyalgan 20 mg Hyalgan 20 mg 2021-01-09 14:14:00 Completed [facility] Hyalgan 20 mg Hyalgan 20 mg 2021-01-09 14:14:00 Completed [facility] Hyalgan 20 mg Hyalgan 20 mg 2021-01-09 14:14:00 Completed [facility] Hyalgan 20 mg Hyalgan 20 mg 2021-01-02 15:26:00 Completed [facility] Hyalgan 20 mg Hyalgan 20 mg 2021-01-02 15:26:00 Completed [facility] Hyalgan 20 mg Hyalgan 20 mg 2021-01-02 15:26:00 Completed [facility] Bupivicaine [place] Bupivicaine [place] 2020-11-21 16:30:00 Completed [facility] Kenalog (Triamcinolone) Kenalog (Triamcinolone) 2020-11-21 16:30:00 Completed [facility] Bupivicaine [place] Bupivicaine [place] 2020-11-21 16:30:00 Completed [facility] Kenalog (Triamcinolone) Kenalog (Triamcinolone) 2020-11-21 16:30:00 Completed [facility] Bupivicaine [place] Bupivicaine [place] 2020-11-21 16:30:00 Completed [facility] Kenalog (Triamcinolone) Kenalog (Triamcinolone) 2020-11-21 16:30:00 Completed [facility] Depo-Medrol (Methylprednisolone ) 20mg Depo-Medrol (Methylprednisolone ) 20mg 2019-04-25 15:02:00 Completed [facility] LIDOCAINE HCL 10MG/ML LIDOCAINE HCL 10MG/ML 2019-04-25 15:02:00 Completed [facility] Depo-Medrol (Methylprednisolone ) 20mg Depo-Medrol (Methylprednisolone ) 20mg 2019-04-25 15:02:00 Completed [facility] LIDOCAINE HCL 10MG/ML LIDOCAINE HCL 10MG/ML 2019-04-25 15:02:00 Completed [facility] Depo-Medrol (Methylprednisolone ) 20mg Depo-Medrol (Methylprednisolone ) 20mg 2019-04-25 15:02:00 [facility] LIDOCAINE HCL 10MG/ML LIDOCAINE HCL 10MG/ML 2019-04-25 15:02:00 [facility] [id number] ER<sup>1</sup> Unknown Completed Rm Joseph [id number] ER<sup>1</sup> Unknown Completed [facility] Vital Signs Vital Name Observation Time Observation Value Comments S rodríguez height 2024-10-23 14:30:00 62 [in_i] Commo n [facility] weight 2024-10-23 14:30:00 188 [lb_av] Comm on [facility] temperature 2024-10-23 14:30:00 97.6 [degF] Com mon [facility] bmi 2024-10-23 14:30:00 34.38 kg/m2 Comm on [facility] oximetry 2024-10-23 14:30:00 98 % Commo n [facility] blood pressure systolic 2024-10-23 14:30:00 125 mm[Hg] [facility] blood pressure diastolic 2024-10-23 14:30:00 80 mm[Hg] [facility] height 2024-08-30 15:15:00 62 [in_i] Commo n [facility] weight 2024-08-30 15:15:00 185.6 [lb_av] Co mmon [facility] bmi 2024-08-30 15:15:00 33.94 kg/m2 Comm on [facility] oximetry 2024-08-30 15:15:00 96 % Commo n [facility] blood pressure systolic 2024-08-30 15:15:00 138 mm[Hg] [facility] blood pressure diastolic 2024-08-30 15:15:00 89 mm[Hg] [facility] height 2024-08-17 13:15:00 62 [in_i] Commo n [facility] weight 2024-08-17 13:15:00 187.4 [lb_av] Co mmon [facility] temperature 2024-08-17 13:15:00 97.5 [degF] Com [facility] bmi 2024-08-17 13:15:00 34.27 kg/m2 Comm on [facility] oximetry 2024-08-17 13:15:00 95 % Commo n [facility] respiratory rate 2024-08-17 13:15:00 18 /min [facility] blood pressure systolic 2024-08-17 13:15:00 135 mm[Hg] [facility] blood pressure diastolic 2024-08-17 13:15:00 77 mm[Hg] [facility] height 2024-07-24 13:00:00 62 [in_i] Commo n [facility] weight 2024-07-24 13:00:00 188.2 [lb_av] Co on [facility] temperature 2024-07-24 13:00:00 97.9 [degF] Com [facility] bmi 2024-07-24 13:00:00 34.42 kg/m2 Comm on [facility] oximetry 2024-07-24 13:00:00 97 % Commo n [facility] respiratory rate 2024-07-24 13:00:00 17 /min [facility] blood pressure systolic 2024-07-24 13:00:00 130 mm[Hg] Common [facility] blood pressure diastolic 2024-07-24 13:00:00 80 mm[Hg] [facility] height 2024-07-24 13:00:00 62 [in_i] Commo n [facility] weight 2024-07-24 13:00:00 188.2 [lb_av] Co [facility] temperature 2024-07-24 13:00:00 97.9 [degF] Com [facility] bmi 2024-07-24 13:00:00 34.42 kg/m2 Comm on [facility] oximetry 2024-07-24 13:00:00 97 % Commo n [facility] respiratory rate 2024-07-24 13:00:00 17 /min [facility] blood pressure systolic 2024-07-24 13:00:00 130 mm[Hg] [facility] blood pressure diastolic 2024-07-24 13:00:00 80 mm[Hg] [facility] height 2024-07-05 11:30:00 62 [in_i] Commo n [facility] weight 2024-07-05 11:30:00 186.2 [lb_av] Co mmon [facility] temperature 2024-07-05 11:30:00 97.6 [degF] Com [facility] bmi 2024-07-05 11:30:00 34.05 kg/m2 Comm on [facility] oximetry 2024-07-05 11:30:00 94 % Commo n [facility] respiratory rate 2024-07-05 11:30:00 18 /min [facility] blood pressure systolic 2024-07-05 11:30:00 139 mm[Hg] [facility] blood pressure diastolic 2024-07-05 11:30:00 60 mm[Hg] [facility] height 2024-06-07 13:00:00 62 [in_i] Commo n [facility] weight 2024-06-07 13:00:00 184 [lb_av] Comm on [facility] temperature 2024-06-07 13:00:00 98.4 [degF] Com [facility] bmi 2024-06-07 13:00:00 33.65 kg/m2 Comm on [facility] oximetry 2024-06-07 13:00:00 96 % Commo n [facility] blood pressure systolic 2024-06-07 13:00:00 132 mm[Hg] [facility] blood pressure diastolic 2024-06-07 13:00:00 84 mm[Hg] [facility] height 2024-04-07 15:40:00 62 [in_i] Commo n [facility] weight 2024-04-07 15:40:00 185 [lb_av] Comm on [facility] temperature 2024-04-07 15:40:00 98 [degF] Comm on [facility] bmi 2024-04-07 15:40:00 33.83 kg/m2 Comm on [facility] oximetry 2024-04-07 15:40:00 97 % Commo n [facility] respiratory rate 2024-04-07 15:40:00 17 /min Common [facility] blood pressure systolic 2024-04-07 15:40:00 151 mm[Hg] [facility] blood pressure diastolic 2024-04-07 15:40:00 84 mm[Hg] [facility] height 2024-03-23 14:00:00 62 [in_i] Commo n [facility] weight 2024-03-23 14:00:00 185 [lb_av] Comm on [facility] temperature 2024-03-23 14:00:00 97.7 [degF] Com mon [facility] bmi 2024-03-23 14:00:00 33.83 kg/m2 Comm on [facility] oximetry 2024-03-23 14:00:00 96 % Commo n [facility] respiratory rate 2024-03-23 14:00:00 16 /min Common [facility] blood pressure systolic 2024-03-23 14:00:00 139 mm[Hg] [facility] blood pressure diastolic 2024-03-23 14:00:00 80 mm[Hg] [facility] height 2024-02-24 14:40:00 62 [in_i] Commo n [facility] weight 2024-02-24 14:40:00 188.0 [lb_av] Co mmon [facility] temperature 2024-02-24 14:40:00 98.0 [degF] Com [facility] bmi 2024-02-24 14:40:00 34.38 kg/m2 Comm on [facility] oximetry 2024-02-24 14:40:00 98 % Commo n [facility] respiratory rate 2024-02-24 14:40:00 16 /min Common [facility] blood pressure systolic 2024-02-24 14:40:00 138 mm[Hg] Common [facility] blood pressure diastolic 2024-02-24 14:40:00 86 mm[Hg] Common [facility] height 2023-11-30 13:30:00 62 [in_i] Commo n [facility] weight 2023-11-30 13:30:00 186 [lb_av] Comm on [facility] temperature 2023-11-30 13:30:00 98.4 [degF] Com [facility] bmi 2023-11-30 13:30:00 34.02 kg/m2 Comm on [facility] blood pressure systolic 2023-11-30 13:30:00 134 mm[Hg] [facility] blood pressure diastolic 2023-11-30 13:30:00 84 mm[Hg] Common [facility] height 2023-11-25 14:40:00 62 [in_i] Commo n [facility] weight 2023-11-25 14:40:00 186.4 [lb_av] Co mmon [facility] temperature 2023-11-25 14:40:00 97.8 [degF] Com [facility] bmi 2023-11-25 14:40:00 34.09 kg/m2 Comm on [facility] oximetry 2023-11-25 14:40:00 97 % Commo n [facility] respiratory rate 2023-11-25 14:40:00 17 /min Common [facility] blood pressure systolic 2023-11-25 14:40:00 168 mm[Hg] [facility] blood pressure diastolic 2023-11-25 14:40:00 88 mm[Hg] [facility] height 2023-11-25 14:40:00 62 [in_i] Commo n [facility] weight 2023-11-25 14:40:00 186.4 [lb_av] Co mmon [facility] temperature 2023-11-25 14:40:00 97.8 [degF] Com [facility] bmi 2023-11-25 14:40:00 34.09 kg/m2 Comm on [facility] oximetry 2023-11-25 14:40:00 97 % Commo n [facility] respiratory rate 2023-11-25 14:40:00 17 /min [facility] blood pressure systolic 2023-11-25 14:40:00 170 mm[Hg] [facility] blood pressure diastolic 2023-11-25 14:40:00 85 mm[Hg] Common [facility] height 2023-10-28 14:00:00 62 [in_i] Commo n [facility] weight 2023-10-28 14:00:00 187 [lb_av] Comm on [facility] temperature 2023-10-28 14:00:00 97.9 [degF] Com [facility] bmi 2023-10-28 14:00:00 34.2 kg/m2 Commo n [facility] oximetry 2023-10-28 14:00:00 96 % Commo n [facility] respiratory rate 2023-10-28 14:00:00 15 /min Common [facility] blood pressure systolic 2023-10-28 14:00:00 136 mm[Hg] [facility] blood pressure diastolic 2023-10-28 14:00:00 90 mm[Hg] [facility] height 2022-12-24 10:00:00 62 [in_i] Commo n [facility] weight 2022-12-24 10:00:00 194.4 [lb_av] Co mmon [facility] temperature 2022-12-24 10:00:00 97.5 [degF] Com mon [facility] bmi 2022-12-24 10:00:00 35.55 kg/m2 Comm on [facility] oximetry 2022-12-24 10:00:00 96 % Commo n [facility] respiratory rate 2022-12-24 10:00:00 17 /min [facility] blood pressure systolic 2022-12-24 10:00:00 138 mm[Hg] [facility] blood pressure diastolic 2022-12-24 10:00:00 75 mm[Hg] Common [facility] height 2022-06-30 15:20:00 62 [in_i] Commo n [facility] weight 2022-06-30 15:20:00 193.6 [lb_av] Co mmon [facility] temperature 2022-06-30 15:20:00 97.7 [degF] Com mon [facility] bmi 2022-06-30 15:20:00 35.41 kg/m2 Comm on [facility] oximetry 2022-06-30 15:20:00 97 % Commo n [facility] respiratory rate 2022-06-30 15:20:00 17 /min [facility] blood pressure systolic 2022-06-30 15:20:00 139 mm[Hg] [facility] blood pressure diastolic 2022-06-30 15:20:00 88 mm[Hg] Common [facility] height 2022-05-26 15:00:00 62 [in_i] Commo n [facility] weight 2022-05-26 15:00:00 190 [lb_av] Comm on [facility] temperature 2022-05-26 15:00:00 98.0 [degF] Com mon [facility] bmi 2022-05-26 15:00:00 34.75 kg/m2 Comm on [facility] blood pressure systolic 2022-05-26 15:00:00 122 mm[Hg] [facility] blood pressure diastolic 2022-05-26 15:00:00 84 mm[Hg] [facility] height 2022-04-23 10:45:00 62 [in_i] Commo n [facility] weight 2022-04-23 10:45:00 193 [lb_av] Comm on [facility] temperature 2022-04-23 10:45:00 98.2 [degF] Com mon [facility] bmi 2022-04-23 10:45:00 35.3 kg/m2 Commo n [facility] blood pressure systolic 2022-04-23 10:45:00 142 mm[Hg] [facility] blood pressure diastolic 2022-04-23 10:45:00 84 mm[Hg] Common [facility] height 2022-03-19 15:00:00 62 [in_i] Commo n [facility] weight 2022-03-19 15:00:00 193.3 [lb_av] Co mmon [facility] bmi 2022-03-19 15:00:00 35.35 kg/m2 Comm on [facility] height 2022-02-10 13:30:00 62 [in_i] Commo n [facility] weight 2022-02-10 13:30:00 193.3 [lb_av] Co mmon [facility] temperature 2022-02-10 13:30:00 98.3 [degF] Com mon [facility] bmi 2022-02-10 13:30:00 35.35 kg/m2 Comm on [facility] blood pressure systolic 2022-02-10 13:30:00 126 mm[Hg] [facility] blood pressure diastolic 2022-02-10 13:30:00 82 mm[Hg] [facility] height 2022-01-27 15:30:00 62 [in_i] Commo n [facility] weight 2022-01-27 15:30:00 191 [lb_av] Comm on [facility] bmi 2022-01-27 15:30:00 34.93 kg/m2 Comm on [facility] blood pressure systolic 2022-01-27 15:30:00 148 mm[Hg] [facility] blood pressure diastolic 2022-01-27 15:30:00 92 mm[Hg] [facility] height 2022-01-14 15:40:00 62 [in_i] Commo n [facility] weight 2022-01-14 15:40:00 191 [lb_av] Comm on [facility] temperature 2022-01-14 15:40:00 97.7 [degF] Com mon [facility] bmi 2022-01-14 15:40:00 34.93 kg/m2 Comm on [facility] oximetry 2022-01-14 15:40:00 97 % Commo n [facility] respiratory rate 2022-01-14 15:40:00 17 /min [facility] blood pressure systolic 2022-01-14 15:40:00 136 mm[Hg] [facility] blood pressure diastolic 2022-01-14 15:40:00 88 mm[Hg] [facility] height 2022-01-08 13:30:00 62 [in_i] Commo n [facility] weight 2022-01-08 13:30:00 190 [lb_av] Comm on [facility] temperature 2022-01-08 13:30:00 97.7 [degF] Com mon [facility] bmi 2022-01-08 13:30:00 34.75 kg/m2 Comm on [facility] blood pressure systolic 2022-01-08 13:30:00 146 mm[Hg] [facility] blood pressure diastolic 2022-01-08 13:30:00 92 mm[Hg] [facility] height 2021-08-12 15:10:00 62 [in_i] Commo n [facility] weight 2021-08-12 15:10:00 188.8 [lb_av] Co mmon [facility] temperature 2021-08-12 15:10:00 96.8 [degF] Com [facility] bmi 2021-08-12 15:10:00 34.53 kg/m2 Comm on [facility] oximetry 2021-08-12 15:10:00 95 % Commo n [facility] respiratory rate 2021-08-12 15:10:00 18 /min Common [facility] blood pressure systolic 2021-08-12 15:10:00 130 mm[Hg] [facility] blood pressure diastolic 2021-08-12 15:10:00 88 mm[Hg] [facility] height 2021-08-12 15:20:00 62 [in_i] Commo n [facility] weight 2021-08-12 15:20:00 188.8 [lb_av] Co mmon [facility] temperature 2021-08-12 15:20:00 96.8 [degF] Com mon [facility] bmi 2021-08-12 15:20:00 34.53 kg/m2 Comm on [facility] oximetry 2021-08-12 15:20:00 95 % Commo n [facility] respiratory rate 2021-08-12 15:20:00 18 /min Common [facility] blood pressure systolic 2021-08-12 15:20:00 130 mm[Hg] Common [facility] blood pressure diastolic 2021-08-12 15:20:00 88 mm[Hg] Common [facility] height 2021-07-11 13:00:00 62 [in_i] Commo n [facility] weight 2021-07-11 13:00:00 191.6 [lb_av] Co mmon [facility] bmi 2021-07-11 13:00:00 35.04 kg/m2 Comm on [facility] Systolic (mm Hg) 2023-09-28 20:50:00 [facility] Diastolic (mm Hg) 2023-09-28 20:50:00 [facility] Heart Rate 2023-09-28 20:50:00 [facility] Height 2023-09-28 20:50:00 5 [ft_i] [facility] Weight 2023-09-28 20:50:00 [facility] BMI Calculated 2023-09-28 20:50:00 [facility] Systolic (mm Hg) 2023-08-16 20:54:00 [facility] Diastolic (mm Hg) 2023-08-16 20:54:00 [facility] Heart Rate 2023-08-16 20:54:00 [facility] Height 2023-08-16 20:54:00 5 [ft_i] [facility] Weight 2023-08-16 20:54:00 [facility] BMI Calculated 2023-08-16 20:54:00 [facility] Systolic (mm Hg) 2021-07-24 19:00:00 [facility] Diastolic (mm Hg) 2021-07-24 19:00:00 [facility] Respitory Rate 2021-07-24 19:00:00 [facility] Height 2021-07-24 19:00:00 152.4 cm [facility] Weight 2021-07-24 19:00:00 [facility] BMI Calculated 2021-07-24 19:00:00 [facility] Systolic (mm Hg) 2021-04-24 18:51:00 [facility] Diastolic (mm Hg) 2021-04-24 18:51:00 [facility] Heart Rate 2021-04-24 18:51:00 [facility] Respitory Rate 2021-04-24 18:51:00 [facility] Height 2021-04-24 18:51:00 154.94 cm [facility] Weight 2021-04-24 18:51:00 [facility] BMI Calculated 2021-04-24 18:51:00 [facility] Systolic (mm Hg) 2021-03-27 20:16:00 [facility] Diastolic (mm Hg) 2021-03-27 20:16:00 [facility] Heart Rate 2021-03-27 20:16:00 [facility] Respitory Rate 2021-03-27 20:16:00 [facility] Height 2021-03-27 20:16:00 154.94 cm [facility] Weight 2021-03-27 20:16:00 [facility] BMI Calculated 2021-03-27 20:16:00 [facility] Procedures Procedure Date / Time Performed Performing Clinician Source PVR 2024-06-07 00:00:00 Common S [facility]irit - [facility] PHYSICIAN ORDERS 2024-06-05 19:58:38 Doctor Unas signed, Quilc[place] [facility] DEXA AXIAL (HIP AND SPINE) 2024-01-04 20:02:47 Leidy Mcclure am [facility] [place] BARIUM SWALLOW ESOPHAGUS 2023-12-15 18:58:22 Requisition, Paper [facility] CT ABDOMEN W CONTRAST 2023-12-15 17:45:41 Requisition, Paper [facility] DUPLEX VENOUS LEG LEFT - BY VASCULAR LAB 2023-12-02 19:46:30 Fan Garcia [facility] NO SHOW OR MISSED APPOINTMENT POLICY ACKNOWLEDGEMENT 2023-12-02 19:17:59 Doctor Unassigned, [place] PATIENT FINANCIAL POLICY 2023-12-02 19:17:14 Doctor Unassigned, Qu[place]ene [facility] NOTICE OF PRIVACY PRACTICES 2023-12-02 19:17:00 Doctor Unassigned, [place] [facility] NOTICE OF BILLING PRACTICES FOR MEDICARE PATIENTS 2023-12-02 19:16:43 Doctor Unassigned, [place] [facility] CONSENT/REFUSAL FOR DIAGNOSIS AND TREATMENT 2023-12-02 19:16:27 Doctor Unassigned, Qu[place]ene [facility] ASSIGNMENT OF BENEFITS 2023-12-02 19:16:13 Docto r Unassigned, Quilcene [facility] Encounters Start Date/Time End Date/Time Encounter Type Admission Type Attending [facility] Facility Care Department Encounter ID Source 2024-11-03 14:55:00 Outpatient [facility] [id number] [facility] 2024-10-19 13:23:00 Outpatient DenLeidy [facility] [id number] [facility] 2024-07-20 10:55:00 Outpatient DenLeidy [facility] ST[facility] [id number] [facility] 2024-03-22 10:39:00 Outpatient eDnLeidy ST[facility] STLC [id number] [facility] 2024-03-21 10:19:00 Outpatient DenSaLeidy ST[facility] STLMLC [id number] [facility] 2023-11-30 11:48:00 Outpatient DenSaLeidy ST[facility] STLC [id number] [facility] 2023-10-22 10:09:00 Outpatient DenSaLeidy ST[facility] ST[facility] [id number] [facility] 2022-12-28 10:53:01 Outpatient Alston, Terence STLMLC STL[facility]C [id number] [facility] 2022-12-09 16:59:00 Outpatient Alston, Terence [facility] STL[facility] [id number] [facility] 2022-11-23 11:24:00 Outpatient Alston, Terence [facility] STL[facility] [id number] [facility] 2022-01-09 08:45:02 Outpatient Alston, Terence [facility] STL[facility] [id number] [facility] 2022-01-02 10:57:01 Outpatient Alston, Terence [facility] STL[facility] [id number] [facility] 2021-11-26 13:11:28 Outpatient Alston, Terence [facility] STL[facility] [id number] [facility] 2021-11-26 12:57:36 Outpatient Alston, Terence [facility] STL[facility]C [id number] [facility] 2021-11-26 12:57:14 Outpatient Alston, Terence [facility] STL[facility] [id number] [facility] 2021-11-26 12:30:52 Outpatient Alston, Terence [facility] STL[facility] [id number] [facility] 2021-11-26 12:25:48 Outpatient Alston, Terence [facility] ST[facility] [id number] [facility] 2021-11-26 12:25:35 Outpatient Alston, Terence [facility] STL[facility] [id number] [facility] 2021-11-26 12:18:17 Outpatient Alston, Terence [facility] STL[facility] [id number] [facility] 2021-11-26 12:17:28 Outpatient Alston, Terence [facility] [id number] [facility] 2021-11-26 11:58:57 Outpatient Alston[facility] [id number] [facility] 2021-11-26 11:55:14 Out[facility]ston[facility] [id number] [facility] 2021-11-26 11:34:01 [facility] [id number] [facility] 2021-11-26 11:17:23 [facility] [id number] [facility] 2021-11-26 11:14:22 [facility] [id number] [facility] 2021-11-26 10:57:55 [facility] [id number] [facility] 2024-06-05 00:00:00 2024-12-16 07:12:03 Orders Only Doctor Unassigned, [place] Doctor Unassigned, [place] [facility] [id number] [facility] 2024-10-23 00:00:00 2024-10-23 00:00:00 OFFICE VISIT ESTAB PT LEVEL 4 [facility] ST[facility] [id number] [facility] 2024-08-30 00:00:00 2024-08-30 00:00:00 OFFICE VISIT ESTAB PT LEVEL 4 [facility] STL[facility]C [id number] [facility] 2024-08-17 00:00:00 2024-08-17 00:00:00 OFFICE VISIT ESTAB PT LEVEL 3 [facility] STL[facility] [id number] [facility] 2024-07-24 00:00:00 2024-07-24 00:00:00 OFFICE VISIT ESTAB PT LEVEL 4 [facility] STL[facility] [id number] [facility] 2024-07-21 00:00:00 2024-07-21 00:00:00 (TEL) [facility]LMLC [facility] [id number] [facility] 2024-07-05 00:00:00 2024-07-05 00:00:00 OFFICE VISIT ESTAB PT LEVEL 3 [facility] STL[facility]C [id number] [facility] 2024-07-04 00:00:00 2024-07-04 00:00:00 (TEL) STLMLC STL[facility]C [id number] [facility] 2024-06-24 10:56:35 2024-06-24 23:59:00 Outpatient R LYNN BOLTON [facility] [id number] [facility] 2024-06-24 10:56:35 2024-06-24 23:59:00 Hospital Encounter Lynn Bolton [facility] [id number] [facility] 2024-06-07 00:00:00 2024-06-07 00:00:00 OFFICE VISIT NEW PT LEVEL 3 [facility] STL[facility]C [id number] [facility] 2024-05-02 15:15:08 2024-05-02 23:59:00 Hospital Encounter Radiology [facility] [id number] 4.2.7.2.686 [id number] [facility] 2024-05-02 13:12:37 2024-05-02 15:14:00 Outpatient R RADIOLOGY [facility] [id number] [facility] 2024-05-02 13:12:37 2024-05-02 15:14:00 Hospital Encounter Radiology [facility] [id number] [id number] [id number] [facility] 2024-05-02 00:00:00 2024-05-02 00:00:00 (TEL) STLMLC STLMLC [id number] [facility] 2024-05-01 00:00:00 2024-05-01 00:00:00 (TEL) STLMLC STL[facility]C [id number] [facility] 2024-04-13 00:00:00 2024-04-13 00:00:00 (TEL) STLMLC [facility] [id number] [facility] 2024-04-07 00:00:00 2024-04-07 00:00:00 (TEL) STLMLC STLMLC [id number] [facility] 2024-04-07 00:00:00 2024-04-07 00:00:00 OFFICE VISIT ESTAB PT LEVEL 3 [facility] STLMLC [id number] [facility] 2024-03-23 00:00:00 2024-03-23 00:00:00 OFFICE VISIT ESTAB PT LEVEL 4 [facility] STL[facility]C [id number] [facility] 2024-02-24 00:00:00 2024-02-24 00:00:00 OFFICE VISIT ESTAB PT LEVEL 4 [facility] STLMLC [id number] [facility] 2024-02-03 14:15:00 2024-02-03 14:30:00 Shoe Lining Fitter Visit Pob, Adc Lab Kandice Montoya [facility] [id number] [id number] [id number] [facility] 2024-02-03 14:15:00 2024-02-03 14:15:00 Outpatient R KANDICE REED [facility] [id number] [facility] 2024-01-06 00:00:00 2024-01-06 00:00:00 (TEL) STLMLC STLMLC [id number] [facility] 2024-01-04 13:15:23 2024-01-04 23:59:00 Outpatient R RADIOLOGY [facility] [id number] [facility] 2024-01-04 13:15:23 2024-01-04 23:59:00 Hospital Encounter Radiology [facility] [id number] 350.1.13.10 [id number] [id number] [facility] 2023-12-22 00:00:00 2023-12-22 00:00:00 (TEL) STLMLC STLMLC [id number] [facility] 2023-12-21 00:00:00 2023-12-21 00:00:00 Outpatient R RADIOLOGY [facility] [id number] [facility] 2023-12-16 14:18:27 2023-12-16 23:59:00 Outpatient R RADIOLOGY [facility] [id number] [facility] 2023-12-16 14:18:27 2023-12-16 23:59:00 Hospital Encounter Radiology [facility] [id number] 350.1.13.10 4.2.7.2.686 [id number] [facility] 2023-12-16 14:14:35 2023-12-16 14:17:00 Hospital Encounter Radiology [facility] 1.2.840.114 350.1.13.10 4.2.7.2.686 [id number] [facility] 2023-12-15 10:56:59 2023-12-15 23:59:00 Hospital Encounter XinkristalAngélica [facility] 1.2.840.114 350.1.13.10 4.2.7.2.686 [id number] [facility] 2023-12-15 10:56:38 2023-12-15 23:59:00 Outpatient R ANGÉLICA MAK [facility] [id number] [facility] 2023-12-15 10:56:38 2023-12-15 23:59:00 Hospital Encounter Angélica Mak [facility] [id number] 350.1.13.10 4.2.7.2.686 [id number] [facility] 2023-12-08 00:00:00 2023-12-08 00:00:00 (TEL) STLMLC STLMLC [id number] [facility] 2023-12-02 13:17:45 2023-12-02 23:59:00 Hospital Encounter David CruzScarlett [facility] [id number] 350.1.13.10 4.2.7.2.686 [id number] [facility] 2023-12-02 13:17:45 2023-12-02 23:59:00 [facility] [id number] [facility] 2023-11-30 00:00:00 2023-11-30 00:00:00 (ESTPT) Establishe d Patient [facility]LMLC STLC [id number] [facility] 2023-11-30 00:00:00 2023-11-30 00:00:00 (TEL) STLMLC STLMLC [id number] [facility] 2023-11-25 00:00:00 2023-11-25 00:00:00 SUB ANNUAL [facility] WELLNESS VISIT STLMLC STLMLC [id number] [facility] 2023-11-25 00:00:00 2023-11-25 00:00:00 OFFICE VISIT ESTAB PT LEVEL 4 [facility]LMLC STLMLC [id number] [facility] 2023-11-22 00:00:00 2023-11-22 00:00:00 (TEL) STLMLC STLMLC [id number] [facility] 2023-11-17 00:00:00 2023-11-17 00:00:00 (TEL) STLMLC STLMLC [id number] [facility] 2023-11-10 00:00:00 2023-11-10 00:00:00 (TEL) STLMLC STLMLC [id number] [facility] 2023-11-09 19:30:00 2023-11-09 19:30:00 Ambulatory Pre-Reg [facility] [place] [id number] Barbie Aguilarann 2023-10-28 00:00:00 2023-10-28 00:00:00 OFFICE VISIT NEW PT LEVEL 4 STLMLC STLMLC [id number] [facility] 2023-10-13 00:00:00 2023-10-13 00:00:00 (TEL) STLMLC STLMLC [id number] [facility] 2023-10-13 00:00:00 2023-10-13 00:00:00 (TEL) STLMLC STLMLC [id number] [facility] 2023-09-28 20:30:00 2023-09-29 05:59:59 Outpatient [facility] [place] [id number] 07 Barbie Aguilarann 2023-08-16 20:45:00 2023-08-17 04:59:59 Outpatient [facility] [place] [id number] Jamesamy Aguilarann 2023-07-19 00:00:00 2023-07-19 00:00:00 (TEL) STLMLC STLMLC [id number] [facility] 2023-06-18 18:52:10 2023-06-20 04:59:59 Outside Medical Records [facility] [place] [id number] Barbie Aguilarann 2023-01-06 00:00:00 2023-01-06 00:00:00 (TEL) STLMLC STLMLC [id number] [facility] 2022-12-29 00:00:00 2022-12-29 00:00:00 (TEL) STLMLC STLMLC [id number] [facility] 2022-12-24 00:00:00 2022-12-24 00:00:00 OFFICE VISIT ESTAB PT LEVEL 3 STLMLC STLMLC [id number] [facility] 2022-12-09 00:00:00 2022-12-09 00:00:00 (TEL) STLMLC STLMLC [id number] [facility] 2022-11-23 00:00:00 2022-11-23 00:00:00 (TEL) STLMLC STLMLC [id number] [facility] 2022-11-23 00:00:00 2022-11-23 00:00:00 (TEL) STLMLC STLMLC [id number] [facility] 2022-06-30 00:00:00 2022-06-30 00:00:00 OFFICE VISIT EST PT LEVEL 3 STLMLC STLMLC [id number] [facility] 2022-06-29 00:00:00 2022-06-29 00:00:00 (TEL) STLMLC STLMLC [id number] [facility] 2022-05-26 00:00:00 2022-05-26 00:00:00 OFFICE VISIT ESTAB PT LEVEL 4 STLMLC STLMLC [id number] [facility] 2022-04-23 00:00:00 2022-04-23 00:00:00 (TEL) STLMLC STLMLC [id number] [facility] 2022-04-23 00:00:00 2022-04-23 00:00:00 OFFICE VISIT ESTAB PT LEVEL 4 STLMLC STLMLC [id number] [facility] 2022-04-14 00:00:00 2022-04-14 00:00:00 (TEL) STLMLC STLMLC [id number] [facility] 2022-04-01 00:00:00 2022-04-01 00:00:00 (TEL) STLMLC STLMLC [id number] [facility] 2022-03-19 00:00:00 2022-03-19 00:00:00 OL DIG E/M SVC 5-10 MIN STLMLC STLMLC [id number] [facility] 2022-03-16 00:00:00 2022-03-16 00:00:00 (TEL) STLMLC STLMLC [id number] [facility] 2022-03-10 00:00:00 2022-03-10 00:00:00 (TEL) STLMLC STLMLC [id number] [facility] 2022-02-17 00:00:00 2022-02-17 00:00:00 (TEL) STLMLC STLMLC [id number] [facility] 2022-02-11 00:00:00 2022-02-11 00:00:00 (TEL) STLMLC STLMLC [id number] [facility] 2022-02-10 00:00:00 2022-02-10 00:00:00 (IN/ASP) INJ ASP STLMLC STLMLC [id number] [facility] 2022-02-06 00:00:00 2022-02-06 00:00:00 (TEL) STLMLC STLMLC [id number] [facility] 2022-01-27 00:00:00 2022-01-27 00:00:00 (IN/ASP) INJ ASP STLMLC STLMLC [id number] [facility] 2022-01-15 00:00:00 2022-01-15 00:00:00 (TEL) STLMLC STLMLC [id number] [facility] 2022-01-14 00:00:00 2022-01-14 00:00:00 OFFICE VISIT EST PT LEVEL 3 STLMLC STLMLC [id number] [facility] 2022-01-08 00:00:00 2022-01-08 00:00:00 OFFICE VISIT ESTAB PT LEVEL 4 STLMLC STLMLC [id number] [facility] 2021-11-17 00:00:00 2021-11-17 00:00:00 (TEL) STLMLC STLMLC [id number] [facility] 2021-11-04 20:00:00 2021-11-04 20:00:00 Ambulatory Pre-Reg nullFlavo r [facility] [place] [id number] 2021-10-23 00:00:00 2021-10-23 00:00:00 OFFICE VISIT ESTAB PT LEVEL 1 STLMLC STLMLC [id number] [facility] 2021-10-22 00:00:00 2021-10-22 00:00:00 (TEL) STLMLC STLMLC [id number] [facility] 2021-09-23 19:00:00 2021-09-23 19:00:00 Ambulatory Pre-Reg nullFlavo r [facility] [place] [id number] [facility] 2021-08-12 00:00:00 2021-08-12 00:00:00 OFFICE VISIT ESTAB PT LEVEL 4 STLMLC STLMLC [id number] [facility] 2021-08-12 00:00:00 2021-08-12 00:00:00 SUB ANNUAL [facility] VISIT STLMLC STLMLC [id number] [facility] 2021-07-30 00:00:00 2021-07-30 00:00:00 (TEL) STLMLC STLMLC [id number] [facility] 2021-07-24 18:45:00 2021-07-25 04:59:59 Outpatient nullFlavo r [facility] [place] [id number] [facility] 2021-07-17 00:00:00 2021-07-17 00:00:00 (TEL) STLMLC STLMLC [id number] [facility] 2021-07-11 00:00:00 2021-07-11 00:00:00 OFFICE VISIT EST PT LEVEL 3 STLMLC STLMLC [id number] [facility] 2021-07-10 00:00:00 2021-07-10 00:00:00 OFFICE VISIT ESTAB PT LEVEL 1 STLMLC STLMLC [id number] [facility] 2021-07-10 00:00:00 2021-07-10 00:00:00 (TEL) STLMLC STLMLC [id number] [facility] 2021-04-24 18:45:00 2021-04-25 04:59:59 Outpatient nullFlavo r [facility] [place] [id number] [place] 2021-04-08 00:00:00 2021-04-08 00:00:00 Outpatient STLMLC STLMLC [id number] [facility] 2021-04-02 18:00:00 2021-04-03 04:59:59 Outpatient nullFlavo r [facility] [place] [id number] [place] 2021-03-27 19:45:00 2021-03-28 04:59:59 Outpatient nullFlavo r [facility] [place] [id number] [place] 2021-03-10 00:00:00 2021-03-10 00:00:00 Outpatient STLMLC STLMLC [id number] [facility] 2021-02-27 00:00:00 2021-02-27 00:00:00 Outpatient STLMLC STLMLC [id number] [facility] 2021-02-26 00:00:00 2021-02-26 00:00:00 Outpatient STLMLC STLMLC [id number] [facility] 2021-02-26 00:00:00 2021-02-26 00:00:00 Outpatient STLMLC STLMLC [id number] [facility] 2021-01-29 00:00:00 2021-01-29 00:00:00 Outpatient STLMLC STLMLC [id number] [facility] 2021-01-21 00:00:00 2021-01-21 00:00:00 Outpatient STLMLC STLMLC [id number] [facility] 2021-01-09 00:00:00 2021-01-09 00:00:00 Outpatient STLMLC STLMLC [id number] [facility] 2021-01-02 00:00:00 2021-01-02 00:00:00 Outpatient STLMLC STLMLC [id number] [facility] 2020-12-12 00:00:00 2020-12-12 00:00:00 Outpatient STLMLC STLMLC [id number] [facility] 2020-11-21 00:00:00 2020-11-21 00:00:00 Outpatient STLMLC STLMLC [id number] [facility] 2020-11-15 00:00:00 2020-11-15 00:00:00 Outpatient STLMLC STLMLC [id number] [facility] 2020-11-04 00:00:00 2020-11-04 00:00:00 Outpatient STLMLC STLMLC [id number] [facility] 2020-08-27 00:00:00 2020-08-27 00:00:00 Outpatient STLMLC STLMLC [id number] [facility] 2020-08-20 00:00:00 2020-08-20 00:00:00 Outpatient STLMLC STLMLC [id number] [facility] 2020-06-04 13:00:00 2020-06-04 13:00:00 [facility] [id number] [facility] 2020-06-04 08:09:00 2020-06-04 08:09:00 [facility] [id number] [facility] 2020-05-22 10:30:00 2020-05-22 10:30:00 [facility] [id number] [facility] 2020-05-16 10:45:00 2020-05-16 10:45:00 [facility] [id number] [facility] 2020-05-16 10:30:00 2020-05-16 10:30:[address] [facility] [id number] [facility] 2020-05-13 10:50:00 2020-05-13 10:50:[address] [facility] [id number] [facility] 2020-04-18 15:26:00 2020-04-18 15:26:[address] [facility] [id number] [facility] 2020-02-07 10:30:00 2020-02-07 10:30:00 [facility] [id number] [facility] 2019-11-03 08:52:00 2019-11-03 08:52:[address] [facility] [id number] [facility] 2019-10-18 15:00:00 2019-10-18 15:00:[address] [facility] [facility] [id number] [facility] 2019-10-02 09:11:00 2019-10-02 09:11:[address] [facility] [facility] [id number] [facility] 2019-07-21 08:46:00 2019-07-21 08:46:[address] [facility] [id number] [facility] 2019-07-13 13:15:00 2019-07-13 13:15:[address] [facility] [id number] [facility] 2019-05-10 14:30:00 2019-05-10 14:30:00 [facility] [id number] [facility] 2019-05-02 16:16:00 2019-05-02 16:16:00 [facility] [id number] [facility] 2019-04-25 14:30:00 2019-04-25 14:30:00 [facility] [id number] [facility] 2018-12-19 16:49:00 2018-12-19 16:49:[address] [facility] [id number] [facility] 2018-11-16 14:13:00 2018-11-16 14:13:[address] [facility] [facility] [id number] [facility] 2018-11-15 11:53:00 2018-11-15 11:53:[address] [facility] [facility] [id number] [facility] 2018-11-15 09:00:00 2018-11-15 09:00:[address] [facility] [id number] [facility] 2018-08-11 13:15:00 2018-08-11 13:15:[address] [facility] [id number] [facility] 2018-05-11 13:00:00 2018-05-11 13:00:[address] [facility] [facility] [id number] [facility] 2018-03-14 14:00:00 2018-03-14 14:00:00 [facility] [id number] [facility] 2018-02-09 10:00:00 2018-02-09 10:00:00 [facility] [id number] [facility] 2018-02-03 10:30:00 2018-02-03 10:30:00 [facility] [id number] [facility] Results Test Description Test Time Test Comments Results Result Co mments Source PHYSICIAN [id number] 19:58:38Ordered by an unspecified provider.[facility] [id number] 19:27:30HISTORY: Dysphagia. TECHNIQUE: Barium swallow/esophagram were obtained using overheadradiography technique as well as digital fluoroscopic technique done by mewith the patient in multiple positions. FINDINGS: Swallowing function appear normal. Esophagus appears of normalsize and shape with no focalmucosal lesions. No stricture or diverticulaseen. I was able to demonstrate hiatal hernia with Valsalva technique. Nogastroesophageal reflux. CONCLUSIONS:1. Small hiatal hernia without gastroesophageal reflux. 2. During later part of the examination, patient had aspirated small amountof barium intothe lower trachea, resulting in to coughing.[facility]EN W [id number] 17:54:35CT Abdomen with intravenous contrast. CLINICAL HISTORY: Abdominal pain. DOSE: Up-to-date CT equipment and radiation dose reduction techniques wereemployed. CTDIvol: ? 11.83+12.60 mGy. DLP: 251.01+396mGy-cm. TECHNIQUE : Contiguous axial imaging from the level of the lung basesthrough the level of il iac crests were performed after the uncomplicatedadministration of nonionic contrast material. ?Coronal and sagittalreconstructions were obtained. Auto mA and/or iterative reconstruction wereused to reduce radiation dose. FINDINGS: ? Lower lungs: Minimal focal fibrosis noted in both lower lungs. Nopleuraleffusion or pericardial effusion. Small hiatal hernia noted. Liver, Gallbladder and Spleen: S/P cholecystectomy. Liver is 15.3 cm andshowed mild diffuse fatty infiltration but no focal enhancing liver lesionsvisualized. Spleen is 11.1 x 4.2 cm. Biliary ducts and the pancreatic ductappeared of normal size. Peritoneum: ?No free air or free fluid. No lymphadenopathy. Pancreas and Adrenals: ?Unremarkable pancreas and adrenal glands. Kidneys and Ureters: ?No visible calculi in the renal collecting systems.Both right and left renal pelvis and upper ureter are slightly dilated.. Vessels: Minimal atherosclerosis. Retroperitoneum: No abnormal fluid or lymphadenopathy. Bowel: ?Visualized intest jenny and upper abdomen showed signs ofconstipation and mild clonic diverticulosis without any acutechanges. Bladder and Reproductive Organs: ?Not included in this study. Bones: ?Old fracture of upper plate of T12 with loss of approximately 20%of height. No aggressive bone lesions. Calcifications seen in L2-L3 andminimal in L1-L2 disc. Soft tissues: Small fat-containing umbilical hernia without anycomplications. CONCLUSION:1. Small hiatal hernia.2. S/P cholecystectomy. Mild diffuse hepatic steatosis.3. Slightly dilated right and left renal pelvis and upper ureters withoutapparent cause in this study. [facility] [id number] 00:00:00* Test Item Value Reference Range Interpretation Comme nts HEMOGLOBIN A1c (test code = 4548-4) 5.6 % See_Comment [Automated [employer]] The system which generated this result transmitted reference range: 4.2-5.6 %. The reference range was not used to interpret this result as normal/abnormal. Lumbar Spine 3 ViewsLumbar Spine 3 Views Notes Date/Time Note Provider Source 2024-02-03 14:15:00 Images from the original note were not included. Venipuncture collection performed by clean technique on the left anticubitus. Total of 1 attempts were made. Slight pressure and a bandage/dressing were applied to the site(s). The patient experienced no complications. The following specimens were processed according to instructions and sent to [facility] laboratories per lab order on 02/03/2024 : LT BLUE SST 5 RED LAV 1 PPT DK GREEN (LiHep) DK GREEN (SodH) DEAL DK BLUE (K2) DK BLUE (S) ACD Blood Culture NIPT/NTD [facility] [employer]
[2025-02-04] MEDS ORDERED: FENTANYL CITR 100 MCG/2 ML ONE (10:14)
[2025-02-04] MEDS ORDERED: ONDANSETRON 4 MG (ODT) TAB ONE (10:14)
--- NOTE | 2025-02-04 10:57 | RAD REPORT ---
EXAM: XR Wrist Left 3 View HISTORY: [facility] MAIN PAIN Bed Name: 16 COMPARISON: None TECHNIQUE: 3 views of the left wrist. FINDINGS: No evidence of acute fracture or dislocation. Joint alignment is maintained. No soft tissue swelling is seen. Mild intercarpal degenerative changes. Scattered interphalangeal joint degenerative changes not well evaluated given positioning. IMPRESSION: No evidence of acute osseous abnormality. Degenerative changes as above.
--- NOTE | 2025-02-04 10:58 | RAD REPORT ---
EXAMINATION: XR Ankle Left 3 View CLINICAL INDICATION: Female, 74 years old. [facility] MAIN PAIN Bed Name: 16 TECHNIQUE: 3 view radiographs of the left ankle were obtained. COMPARISON: No prior exam. FINDINGS: No acute bone or joint abnormality seen. Mild midfoot degenerative changes. Enthesopathy at the Achilles tendon attachment. Soft tissue swelling about the lower leg and ankle particularly laterally. IMPRESSION: No acute osseous abnormalities. Soft tissue swelling as above. Enthesopathy at the Achilles tendon at tachment.
--- NOTE | 2025-02-04 10:59 | RAD REPORT ---
EXAMINATION: XR Femur Left CLINICAL INDICATION: Female, 74 years old. PAIN TECHNIQUE: 2 view radiograph of the left femur were obtained. COMPARISON: No prior exam. FINDINGS: No evidence of fracture or dislocation. Normal alignment. Up to moderate hip joint and mild to moderate knee joint degenerative changes. No focal bone lesion. Soft tissues are unremarkable. IMPRESSION: No acute osseous abnormalities. Degenerative changes as above.
--- NOTE | 2025-02-04 12:48 | EDPHYS ---
Physician Documentation [facility] Name: Bessie Shepherd Age: 74 yrs Sex: Female : 1950 Arrival Date: 02/04/2025 Time: 10:01 Bed 16 Private MD: ED Physician Tio Alston HPI: 02/04 10:09 This 74 yrs old Female presents to ER via Wheelchair with complaints of Leg Pain, Fall sb4 Injury. 10:09 patient states that she tripped and fell onto her left leg this morning. was unable to sb4 get herself up on her own. is complaining of pain in left ankle, left knee, left femur, left wrist. no head trauma. no LOC. Historical: - Allergies: 10:07 Codeine; iw 10:07 Latex; iw 10:07 NSAIDS; iw 10:07 Sulfa (Sulfonamide Antibiotics); iw 10:07 PENICILLINS; iw - PMHx: 10:07 Asthma; Fibromyalgia; Hypertensive disorder; Vertigo; iw - PSHx: 10:07 Appendectomy; Cholecystectomy; Exploratory laparotomy; hysterectomy; iw - Immunization history:: Adult Immunizations unknown. - Infectious Disease History:: Denies. - Social history:: Smoking status: Patient denies any tobacco usage or history of. ROS: 10:09 Constitutional: Negative for fever, chills, and weight loss, sb4 10:09 MS/extremity: Positive for injury or acute deformity, pain, of the left leg, 10:09 All other systems are negative, Exam: 10:09 Head/Face: Normocephalic, atraumatic. Eyes: Extra-ocular motions intact. Periorbital sb4 areas with no swelling, redness, or edema. ENT: Mucous membranes moist. Cardiovascular: Regular rate and rhythm with a normal S1 and S2. Respiratory: No increased work of breathing, no retractions or nasal flaring. Abdomen/GI: Soft, non-tender, no distension. Skin: Warm, dry with normal turgor. Normal color with no rashes, no lesions, and no evidence of cellulitis. 10:09 Constitutional: The patient appears alert, awake, uncomfortable, 10:09 Musculoskeletal/extremity: Circulation is intact in all extremities. Pulses: are normal with no appreciated deficits, Sensation intact. Joints: the left ankle displays pain at rest, painful range of motion, the left knee displays painful range of motion, swelling, tenderness, the left wristdisplays painful range of motion, tenderness to palpation left lateral thigh. no hip or pelvic tenderness. no deformity noted. Vital Signs: 10:08 BP 155 / 90; Pulse 74; Resp 16; Temp 97.9; Pulse Ox 100% on R/A; Weight 82.1 kg; Height iw 5 ft. 2 in. ; Pain 9/10; 11:04 BP 123 / 76; Pulse 60; Resp 16 S; Pulse Ox 100% on R/A; kc6 12:00 BP 142 / 81; Pulse 62; Resp 16 S; Pulse Ox 100% on R/A; kc6 12:21 BP 142 / 81; Pulse 62; Resp 20; Pulse Ox 100% on R/A; kj2 12:52 BP 140 / 82; Pulse 72; Resp 20; Temp 98; Pulse Ox 100% ; kj2 10:08 Body Mass Index 33.10 (82.10 kg, 157.48 cm) iw 10:08 Pain Scale: Adult iw MDM: 10:08 Medical Screening Exam initiated sb4 10:46 Independent interpretation of the following test(s) in the Emergency Department X-Ray: sb4 My interpretation is My interpretation of the left ankle, left knee, left femur, and left wrist x-ray images is no acute fractures or dislocations. 12:48 Data reviewed: vital signs, nurses notes, radiologic studies, and as a result, I will sb4 discharge patient. Counseling: I had a detailed discussion with the patient and/or guardian regarding the historical points, exam findings, and any diagnostic results supporting the discharge/admit diagnosis, radiology results, the need for outpatient follow up, a orthopedic surgeon, to return to the emergency department if symptoms worsen or persist or if there are any questions or concerns that arise at home. 02/04 10:09 Order name: Femur Left XRAY; Complete Time: 11:00 sb4 02/04 10:09 Order name: Knee Left 3 View XRAY; Complete Time: 12:50 sb4 02/04 10:09 Order name: Ankle Left 3 View XRAY; Complete Time: 10:58 sb4 02/04 10:09 Order name: Wrist Left (3 View) XRAY; Complete Time: 10:58 sb4 04/06 12:49 Order name: Wrist Splint; Complete Time: 13:13 sb4 02/04 12:49 Order name: Knee Immobilizer; Complete Time: 13:12 sb4 Administered Medications: 10:19 Drug: fentaNYL (PF) IM 100 mcg IM once Route: IM; Site: left deltoid; kc6 11:04 Follow up: Response: No adverse reaction; Pain is decreased; RASS: Alert and Calm (0) kc6 10:19 Drug: Ondansetron Oral Disintegrating Tablet Oral Disintegrating Tablet 4 mg PO once kc6 Route: PO; 11:04 Follow up: Response: No adverse reaction kc6 Disposition Summary: 02/04/25 12:48 Discharge Ordered Notes: Location: Home sb4 Problem: new sb4 Symptoms: have improved sb4 Condition: Stable sb4 Diagnosis - Fall on same level, unspecified sb4 - Pain in left leg sb4 - Sprain of unspecified part of left wrist and hand sb4 Followup: sb4 - With: Casey Child MD - When: As needed - Reason: Further diagnostic work-up, Recheck today's complaints, Re-evaluation by your physician Discharge Instructions: - Discharge Summary Sheet sb4 - Musculoskeletal Pain sb4 - Muscle Strain, Rcag-dc-Pozc sb4 Forms: - Patient Portal Instructions sb4 - Leadership Thank You Letter sb4 Prescriptions: - tizanidine 2 mg Oral tablet - take 3 tablet ORAL route every 6 hours do not exceed 3 doses per 24 hrs; 20 sb4 tablet; Refills: 0, Product Selection Permitted - Prednisone 20 mg Oral Tablet - take 1 tablet ORAL route once daily for 5 days; 5 tablet; Refills: 0, Product sb4 Selection Permitted Signatures: Dispatcher [employer] EDDeysi Gonzlaez RN RN iw Campbell, Kaitlyn, RN RN kc6 Nathaly Esqueda PA-C PADina sb4 Hali Gauthier RN RN kj2 Corrections: (The following items were deleted from the chart) 10:10 10:10 Ankle Left 3 View+RAD.RAD.BRZ ordered. EDMS EDMS 10:10 10:10 Wrist Left 3 View+RAD.RAD.BRZ ordered. EDMS EDMS
--- NOTE | 2025-02-04 12:48 | ER ---
Nurse's Notes [facility] Name: Bessie Shepherd Age: 74 yrs Sex: Female : 1950 Arrival Date: 02/04/2025 Time: 10:01 Bed 16 Private MD: Diagnosis: Fall on same level, unspecified;Pain in left leg;Sprain of unspecified part of left wrist and hand Presentation: 02/04 10:06 Chief complaint: Patient states: tripped and fell this morning , her left leg got iw twisted under her, pain to left hip, left knee and left ankle. 10:06 Acuity: ERIK 3 iw 10:07 Coronavirus screen: At this time, the client does not indicate any symptoms associated iw with coronavirus-19. Ebola Screen: No symptoms or risks identified at this time. Initial Sepsis Screen: Does the patient meet any 2 criteria? No. Patient's initial sepsis screen is negative. Does the patient have a suspected source of infection? No. Patient's initial sepsis screen is negative. Risk Assessment: Do you want to hurt yourself or someone else? Patient reports no desire to harm self or others. Onset of symptoms was February 04, 2025. 10:07 Method Of Arrival: Wheelchair iw Historical: - Allergies: 10:07 Codeine; iw 10:07 Latex; iw 10:07 NSAIDS; iw 10:07 Sulfa (Sulfonamide Antibiotics); iw 10:07 PENICILLINS; iw - PMHx: 10:07 Asthma; Fibromyalgia; Hypertensive disorder; Vertigo; iw - PSHx: 10:07 Appendectomy; Cholecystectomy; Exploratory laparotomy; hysterectomy; iw - Immunization history:: Adult Immunizations unknown. - Infectious Disease History:: Denies. - Social history:: Smoking status: Patient denies any tobacco usage or history of. Screenin:20 [facility] ED Fall Risk Assessment (Adult) History of falling in the last 3 months, kc6 including since admission Yes- single mechanical fall (1 pt) Confusion or Disorientation No (0 pts) Intoxicated or Sedated No (0 pts) Impaired Gait No (0 pts) Mobility Assist Device Used No (0 pt) Altered Elimination No (0 pt) Score/Fall Risk Level 0 - 2 = Low Risk Oriented to surroundings, Maintained a safe environment, Educated pt \T\ family on fall prevention, incl call for assistance when getting out of bed. Abuse screen: Denies threats or abuse. Denies injuries from another. Nutritional screening: No deficits noted. Tuberculosis screening: No symptoms or risk factors identified. Assessment: 10:20 General: Appears in no apparent distress. uncomfortable, well groomed, well developed, kc6 Behavior is cooperative, crying. Pain: Complains of pain in left wrist and left knee and left ankle and left leg. Neuro: Level of Consciousness is awake, alert, obeys commands, Oriented to person, place, time, situation, Appropriate for age. Cardiovascular: Capillary refill < 3 seconds. Respiratory: Airway is patent Trachea midline Respiratory effort is even, unlabored, Respiratory pattern is regular, symmetrical. GI: No signs and/or symptoms were reported involving the gastrointestinal system. : No signs and/or symptoms were reported regarding the genitourinary system. EENT: No signs and/or symptoms were reported regarding the EENT system. Derm: No signs and/or symptoms reported regarding the dermatologic system. Skin is intact, is healthy with good turgor, Skin is pink, warm \T\ dry. Musculoskeletal: Range of motion: limited in left wrist and left knee and left ankle Swelling present in left knee and left leg. 11:04 Reassessment: Patient appears in no apparent distress at this time. No changes from kc6 previously documented assessment. Patient and/or family updated on plan of care and expected duration. Pain level reassessed. Patient is alert, oriented x 3, equal unlabored respirations, skin warm/dry/pink. 12:00 Reassessment: Patient appears in no apparent distress at this time. No changes from kc6 previously documented assessment. Patient and/or family updated on plan of care and expected duration. Pain level reassessed. Patient is alert, oriented x 3, equal unlabored respirations, skin warm/dry/pink. 12:20 Reassessment: Patient appears in no apparent distress at this time. Patient and/or kj2 family updated on plan of care and expected duration. Pain level reassessed. Patient is alert, oriented x 3, equal unlabored respirations, skin warm/dry/pink. 12:52 Reassessment: Patient appears in no apparent distress at this time. Patient and/or kj2 family updated on plan of care and expected duration. Pain level reassessed. Patient is alert, oriented x 3, equal unlabored respirations, skin warm/dry/pink. Vital Signs: 10:08 BP 155 / 90; Pulse 74; Resp 16; Temp 97.9; Pulse Ox 100% on R/A; Weight 82.1 kg; Height iw 5 ft. 2 in. ; Pain 9/10; 11:04 BP 123 / 76; Pulse 60; Resp 16 S; Pulse Ox 100% on R/A; kc6 12:00 BP 142 / 81; Pulse 62; Resp 16 S; Pulse Ox 100% on R/A; kc6 12:21 BP 142 / 81; Pulse 62; Resp 20; Pulse Ox 100% on R/A; kj2 12:52 BP 140 / 82; Pulse 72; Resp 20; Temp 98; Pulse Ox 100% ; kj2 10:08 Body Mass Index 33.10 (82.10 kg, 157.48 cm) iw 10:08 Pain Scale: Adult iw ED Course: 10:04 Patient arrived in ED. mr 10:04 Nathaly Esqueda PA-C is PHCP. sb4 10:04 Tio Alston MD is Attending Physician. sb4 10:07 Triage completed. iw 10:08 Arm band placed on Patient placed in an exam room, on a stretcher. iw 10:09 Anne Lowry, RN is Primary Nurse. kc6 10:19 Patient has correct armband on for positive identification. Bed in low position. Call kc6 light in reach. Side rails up X2. Adult w/ patient. Pulse ox on. NIBP on. Door closed. Noise minimized. Lights dimmed. Warm blanket given. Pillow given. Ice pack to injury. Verbal reassurance given. 10:20 Patient maintains SpO2 saturation greater than 95% on room air. kc6 10:45 Femur Left XRAY In Process Unspecified. EDMS 10:45 Knee Left 3 View XRAY In Process Unspecified. EDMS 10:45 Ankle Left 3 View XRAY In Process Unspecified. EDMS 10:45 Wrist Left (3 View) XRAY In Process Unspecified. EDMS 12:07 Report given to Hali Gauthier RN. kc6 12:10 Provided Education on: call light. kj2 12:48 Casey Child MD is Referral Physician. sb4 12:54 No provider procedures requiring assistance completed. kj2 13:13 Patient did not have IV access during this emergency room visit. kj2 Administered Medications: 10:19 Drug: fentaNYL (PF) IM 100 mcg IM once Route: IM; Site: left deltoid; kc6 11:04 Follow up: Response: No adverse reaction; Pain is decreased; RASS: Alert and Calm (0) kc6 10:19 Drug: Ondansetron Oral Disintegrating Tablet Oral Disintegrating Tablet 4 mg PO once kc6 Route: PO; 11:04 Follow up: Response: No adverse reaction kc6 Medication: 12:54 VIS not applicable for this client. kj2 Outcome: 12:48 Discharge ordered by . sb4 12:56 Discharged to home ambulatory, kj2 12:56 Condition: stable 12:56 Discharge instructions given to patient, Instructed on discharge instructions, follow up and referral plans. Demonstrated understanding of instructions, follow-up care, 13:13 Patient left the ED. kj2 Signatures: Dispatcher [employer] EDMS MarroquinMarsha, Reg Reg mr Deysi Rodriguez, RN RN iw Anne Lowry RN RN kc6 Nathaly Esqueda, PA-C PA-C Hali Martell, RN RN kj2 Corrections: (The following items were deleted from the chart) 10:09 10:08 Pulse 74bpm; Resp 16bpm; Pulse Ox 100% RA; Temp 97.9F; 82.1 kg; Height 5 ft. 2 iw in.; BMI: 33.1; Pain 9/10, Adult; iw
--- NOTE | 2025-02-04 12:50 | RAD REPORT ---
EXAM: XR Knee Left 3 View HISTORY: [facility] MAIN PAIN Bed Name: 16 COMPARISON: None TECHNIQUE: 3 views of the left knee were obtained. FINDINGS: Mild knee effusion is seen. There is no evidence of acute fracture or dislocation. Mild de generative changes especially along the patellofemoral articulation. No soft tissue swelling or other soft tissue abnormality is present. IMPRESSION: No evidence of acute osseous abnormality. Degenerative changes as above. Mild joint effu precious.
[2025-02-04 13:18] VITALS: O2SAT 100
[2025-02-04 13:23] VITALS: BP 140/82; TEMP 98
== END 2025-02-04 13:13 | disposition home or self-care (01) ==
LOC: ER 10:01
DX: S63.92XA Sprain of unspecified part of left wrist and hand, initial encounter (principal); M79.605 Pain in left leg; W01.0XXA Fall on same level from slipping, tripping and stumbling without subsequent striking against object, initial encounter
CPT/HCPCS: 73110; 73562; 73552; 73610; 96372; 99284; Q0162; J3010